=== PATIENT | male | born 1945 | race Caucasian/White ===

== ENCOUNTER → 2018-11-14 | Outpatient (CLI) | payer OTHER ==
[~2018-11-14] MED LIST: ATOR20TA58 PO; CANA300T PO; DULA0.75 SQ; FLUC100T4 PO; LISI10TA2 PO; METF500T9 PO
--- NOTE | 2018-11-14 10:28 | KCIC ---
MRI of the brain without contrast 11/14/2018 Clinical History: Dementia, memory loss and unsteady gait. . Technique: Unenhanced T1-weighted sagittal and axial, T2-weighted axial and coronal and FLAIR, gradient echo and diffusion-weighted axial images of the brain were obtained. Findings: No previous imaging studies are available for comparison. Images from the study are degraded by patient motion. There is generalized parenchymal atrophy. Patchy and several small focal areas of increased signal intensity are seen within the periventricular and subcortical white matter of both cerebral hemispheres along with the anthony on the FLAIR and T2-weighted images consistent with areas of small vessel ischemic disease. No acute parenchymal abnormality is seen. No extra-axial fluid collection is seen. There is no MRI evidence of acute ischemia/infarction. The paranasal sinuses are essentially clear. The distal right internal carotid artery is noted to be occluded. Impression: No acute parenchymal abnormality is seen. Electronically signed by: Carlos Kendall MD (11/14/2018 10:23 AM) [facility]
== END | disposition home or self-care (01) ==
LOC: KCIC MRI 08:05
PROVIDERS: ATTEND Nurse Practitioner Family
DX: F03.90 Unspecified dementia, unspecified severity, without behavioral disturbance, psychotic disturbance, mood disturbance, and anxiety (principal); G31.89 Other specified degenerative diseases of nervous system
CPT/HCPCS: 70551

== ENCOUNTER 2019-04-02 16:21 | Inpatient (IN) | payer OTHER, MEDICARE ==
[~2019-04-02] VITALS: Ht 182.9 cm; Wt 104.4 kg
[2019-04-02 17:00] LABS: BASO # 0.1 x10^3/uL (0.0-0.2); BASO % 1 % (0-3); EOS # 0.1 x10^3/uL (0.0-0.7); EOS % 1 % (0-3); HEMOGLOBIN 16.8 g/dL (13.0-17.5); LYMPH # 1.8 x10^3/uL (1.0-4.8); LYMPH % 12 % (24-48); MEAN CORPUSCULAR HEMOGLOBIN 32 pg (25-35); MEAN CORPUSCULAR HGB CONC 34 g/dL (31-37); MEAN CORPUSCULAR VOLUME 94 fL (79-100); MONO # 1.1 x10^3/uL (0.0-1.1); MONO % 7 % (0-9); NEUT # 12.2 x10^3uL (1.8-7.7); NEUT % 80 % (31-73); PLATELET COUNT 180 x10^3/uL (140-400); RED BLOOD COUNT 5.34 x10^6/uL (4.30-5.70); RED CELL DISTRIBUTION WIDTH 12.8 % (11.5-14.5); WHITE BLOOD COUNT 15.3 x10^3/uL (4.0-11.0)
[2019-04-02 17:12] LABS: PROTHROMBIN TIME PATIENT 11.9 SEC (11.7-14.0)
--- NOTE | 2019-04-02 17:22 | RAD ---
EXAM: Head CT without contrast. HISTORY: Confusion. TECHNIQUE: Computed tomographic images of the head were obtained without contrast. *One or more of the following individualized dose reduction techniques were utilized for this examination: 1. Automated exposure control. 2. Adjustment of the mA and/or kV according to patient size. 3. Use of iterative reconstruction technique. COMPARISON: MRI dated 11/14/2018. FINDINGS: There is no acute or subacute extra-axial or intraparenchymal hemorrhage. There is no mass effect or midline shift. There is no hydrocephalus. There are areas of decreased attenuation within the cerebral white matter, nonspecific and likely related to chronic small vessel disease. There is cerebral volume loss. The visualized portions of the orbits, paranasal sinuses and mastoid air cells are unremarkable. No suspicious calvarial lesion is seen. There are few tiny incidental lipomas along the falx. IMPRESSION: 1. No acute intracranial finding. Note is made that MRI is more sensitive for acute infarction. 2. Decreased attenuation within the cerebral white matter, likely due to chronic small vessel disease. Electronically signed by: Shirley Pierson MD (04/02/2019 5:19 PM) [facility]
--- NOTE | 2019-04-02 17:42 | RAD ---
EXAM: Abdomen acute complete HISTORY: Confusion. COMPARISON: None. FINDINGS: A frontal view of the chest and frontal upright and supine views of the abdomen are obtained. There is no infiltrate, pleural effusion or pneumothorax. There are suspected bilateral lower lobe atelectasis. There is a prominent cardiac silhouette. There are healed rib fractures. There is gas and stool within the colon. No abnormally dilated loop of bowel seen. There is no free air. IMPRESSION: 1. No acute pulmonary finding. 2. Nonobstructive bowel gas pattern. Electronically signed by: Shirley Pierson MD (04/02/2019 5:40 PM) [facility]
[2019-04-02 17:43] LABS: CALCIUM 9.4 mg/dL (8.5-10.1); CREATININE 1.6 mg/dL (0.7-1.3); GFR 42.2; POTASSIUM 5.4 mmol/L (3.5-5.1)
[2019-04-02 17:50] LABS: ALBUMIN 4.2 g/dL (3.4-5.0); ALBUMIN/GLOBULIN RATIO 1.1 (1.0-1.7); MAGNESIUM 1.9 mg/dL (1.8-2.4); TOTAL BILIRUBIN 0.3 mg/dL (0.2-1.0); TOTAL PROTEIN 8.1 g/dL (6.4-8.2)
[2019-04-02] MEDS: IV NORMAL SALINE 1000ML BAG 1,000 ML IV SCH (18:18)
--- NOTE | 2019-04-02 18:18 | PHYS DOC ---
Past Medical History Past Medical History: Dementia, Diabetes-Type II Additional Past Surgical Histo: Right Shoulder. Additional Information: Quit 10-15 years ago 3 ppd hx. Alcohol Use: None Drug Use: None Adult General Chief Complaint Chief Complaint: CONSTIPATION [facility] HPI Patient is a 74 year old male who brought in by EMS because of constipation. Patient states he had a bowel movement yesterday but didn't have any bowel movement today and tried to reach his couldn't find her at work and decided to call 911. Patient denies nausea and vomiting, urinary symptoms, fever and chills abdominal pain. 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 Review of Systems Review of Systems Constitutional: Denies fever or chills [] Eyes: Denies change in visual acuity, redness, or eye pain [] HENT: Denies nasal congestion or sore throat [] Respiratory: Denies cough or shortness of breath [] Cardiovascular: No additional information not addressed in HPI [] GI: Denies abdominal pain, nausea, vomiting, bloody stools or diarrhea, reports constipation [] : Denies dysuria or hematuria [] Musculoskeletal: Denies back pain or joint pain [] Integument: Denies rash or skin lesions [] Neurologic: Denies headache, focal weakness or sensory changes [] Endocrine: Denies polyuria or polydipsia [] All other systems were reviewed and found to be within normal limits, except as documented in this note. Allergies Allergies Allergies Coded Allergies Type Severity Reaction Last Updated Verified No Known Drug Allergies 04/02/19 No Physical Exam Physical Exam Constitutional: Well nourished, mild distress, non-toxic appearance. [] HENT: Normocephalic, atraumatic, bilateral external ears normal, oropharynx moist, no oral exudates, nose normal. [] Eyes: PERRLA, EOMI, conjunctiva normal, no discharge. [] Neck: Normal range of motion, no tenderness, supple, no stridor. [] Cardiovascular: Tachycardia, no murmur [] Lungs & Thorax: Bilateral breath sounds clear to auscultation [] Abdomen: Bowel sounds normal, soft, no tenderness, no masses, no pulsatile masses. [] Skin: Warm, dry, no erythema, no rash. [] Back: No tenderness, no CVA tenderness. [] Extremities: No tenderness, no cyanosis, no clubbing, ROM intact, no edema. [] Neurologic: Alert and oriented X2, normal motor function, normal sensory function, no focal deficits noted. [] Psychologic: Affect anxious Current Patient Data Vital Signs Vital Signs Date Time Temp Pulse Resp B/P (MAP) Pulse Ox O2 Delivery O2 Flow Rate FiO2 04/02/19 16:22 98.1 111 24 187/98 (127) 96 Room Air 98.1 Lab Values Laboratory Tests Test 04/02/19 16:48 White Blood Count 15.3 x10^3/uL (4.0-11.0) H Red Blood Count 5.34 x10^6/uL (4.30-5.70) Hemoglobin 16.8 g/dL (13.0-17.5) Hematocrit 50.0 % (39.0-53.0) Mean Corpuscular Volume 94 fL (79-100) Mean Corpuscular Hemoglobin 32 pg (25-35) Mean Corpuscular Hemoglobin Concent 34 g/dL (31-37) Red Cell Distribution Width 12.8 % (11.5-14.5) Platelet Count 180 x10^3/uL (140-400) Neutrophils (%) (Auto) 80 % (31-73) H Lymphocytes (%) (Auto) 12 % (24-48) L Monocytes (%) (Auto) 7 % (0-9) Eosinophils (%) (Auto) 1 % (0-3) Basophils (%) (Auto) 1 % (0-3) Neutrophils # (Auto) 12.2 x10^3uL (1.8-7.7) H Lymphocytes # (Auto) 1.8 x10^3/uL (1.0-4.8) Monocytes # (Auto) 1.1 x10^3/uL (0.0-1.1) Eosinophils # (Auto) 0.1 x10^3/uL (0.0-0.7) Basophils # (Auto) 0.1 x10^3/uL (0.0-0.2) Prothrombin Time 11.9 SEC (11.7-14.0) Prothrombin Time INR 0.9 (0.8-1.1) PTT 28 SEC (24-38) Sodium Level 140 mmol/L (136-145) Potassium Level 5.4 mmol/L (3.5-5.1) H Chloride Level 103 mmol/L (98-107) Carbon Dioxide Level 24 mmol/L (21-32) Anion Gap 13 (6-14) Blood Urea Nitrogen 27 mg/dL (8-26) H Creatinine 1.6 mg/dL (0.7-1.3) H Estimated GFR (Cockcroft-Gault) 42.2 BUN/Creatinine Ratio 17 (6-20) Glucose Level 131 mg/dL (70-99) H Lactic Acid Level 2.0 mmol/L (0.4-2.0) Calcium Level 9.4 mg/dL (8.5-10.1) Magnesium Level 1.9 mg/dL (1.8-2.4) Total Bilirubin 0.3 mg/dL (0.2-1.0) Aspartate Amino Transferase (AST) 24 U/L (15-37) Alanine Aminotransferase (ALT) 30 U/L (16-63) Alkaline Phosphatase 104 U/L (46-116) Ammonia < 10 mcmol/L (11-34) L Creatine Kinase 98 U/L (39-308) Troponin I Quantitative < 0.017 ng/mL (0.000-0.055) CF-Cmb-L-Type Natriuretic Peptide 146 pg/mL (0-449) Total Protein 8.1 g/dL (6.4-8.2) Albumin 4.2 g/dL (3.4-5.0) Albumin/Globulin Ratio 1.1 (1.0-1.7) Lipase 993 U/L (73-393) H Laboratory Tests 04/02/19 16:48 Laboratory Tests 04/02/19 16:48 EKG EKG EKG interpreted by me. EKG at 1633 showed sinus tachycardia at rate of 110, left fourth axis, poor R-wave progress in anteroseptal leads, no acute ST and T-wave abnormalities. Radiology/Procedures Radiology/Procedures [][facility] [address] [place] [address] IMAGING REPORT Signed PATIENT: BURAK GÓMEZ ACCOUNT: [id number] : 1945 LOCATION: ER AGE: 74 SEX: M EXAM STATUS: REG ER ORD. PHYSICIAN: EDGAR LOPES MD REASON: confusion PROCEDURE: ACUTE ABDOMEN SERIES EXAM: Abdomen acute complete HISTORY: Confusion. COMPARISON: None. FINDINGS: A frontal view of the chest and frontal upright and supine views of the abdomen are obtained. There is no infiltrate, pleural effusion or pneumothorax. There are suspected bilateral lower lobe atelectasis. There is a prominent cardiac silhouette. There are healed rib fractures. There is gas and stool within the colon. No abnormally dilated loop of bowel seen. There is no free air. IMPRESSION: 1. No acute pulmonary finding. 2. Nonobstructive bowel gas pattern. Electronically signed by: Shirley Abraham MD (04/02/2019 5:40 PM) [facility] DICTATED and SIGNED BY: SHIRLEY ABRAHAM MD DATE: 04/02/19 1740 [facility] [address] [place], [place] [id number] IMAGING REPORT Signed PATIENT: BURAK GÓMEZ ACCOUNT: [id number] : 1945 LOCATION: ER AGE: 74 SEX: M EXAM STATUS: REG ER ORD. PHYSICIAN: EDGAR LOPES MD REASON: confusion PROCEDURE: CT HEAD WO CONTRAST EXAM: Head CT without contrast. HISTORY: Confusion. TECHNIQUE: Computed tomographic images of the head were obtained without contrast. *One or more of the following individualized dose reduction techniques were utilized for this examination: 1. Automated exposure control. 2. Adjustment of the mA and/or kV according to patient size. 3. Use of iterative reconstruction technique. COMPARISON: MRI dated 11/14/2018. FINDINGS: There is no acute or subacute extra-axial or intraparenchymal hemorrhage. There is no mass effect or midline shift. There is no hydrocephalus. There are areas of decreased attenuation within the cerebral white matter, nonspecific and likely related to chronic small vessel disease. There is cerebral volume loss. The visualized portions of the orbits, paranasal sinuses and mastoid air cells are unremarkable. No suspicious calvarial lesion is seen. There are few tiny incidental lipomas along the falx. IMPRESSION: 1. No acute intracranial finding. Note is made that MRI is more sensitive for acute infarction. 2. Decreased attenuation within the cerebral white matter, likely due to chronic small vessel disease. Electronically signed by: Shirley Abraham MD (04/02/2019 5:19 PM) [facility] DICTATED and SIGNED BY: SHIRLEY ABRAHAM MD DATE: 04/02/19 2110 Course & Med Decision Making Course & Med Decision Making Pertinent Labs and Imaging studies reviewed. (See chart for details) Evaluation of patient in ER showed 74-year-old male patient brought in by EMS because of constipation. Patient had dementia and had complete evaluation with elevation of lipase and urine creatinine and tachycardia and leukocytosis. Plan to admit patient with diagnose of pancreatitis. CT abdomen and pelvis is pending. Patient requiring admission for further evaluation and treatment. Discussed with Dr. Engel who is in agreement with admission. Discussed findings and plan with patient and family, who acknowledge understanding and agreement. Dragon Disclaimer Dragon Disclaimer This electronic medical record was generated, in whole or in part, using a voice recognition dictation system. Departure Departure Impression: Primary Impression: Acute pancreatitis Additional Impressions: SIRS (systemic inflammatory response syndrome) Renal insufficiency Hyperkalemia Disposition: ADMITTED INPATIENT (At 1810) Admitting Physician: BALJITS (Dr. Engel accepted admission at 1810) Condition: IMPROVED Referrals: JAYLEN GIANG MD (PCP) Problem Qualifiers Primary Impression: Acute pancreatitis Pancreatitis type: unspecified pancreatitis type Acute pancreatitis complication: unspecified Qualified Codes: K85.90 - Acute pancreatitis without necrosis or infection, unspecified EDGAR LOPES MD Apr 02, 2019 18:18
[2019-04-02] MEDS ORDERED: ALBUTEROL SULFATE 2.5 MG/3 ML NEBU. CONT NEB ONE (18:30)
--- NOTE | 2019-04-02 18:44 | RAD ---
EXAM: Abdomen and pelvis CT without intravenous contrast. HISTORY: Pain. TECHNIQUE: Computed tomographic images of the abdomen and pelvis were obtained without contrast. Multiplanar reformatting was performed. *One or more of the following individualized dose reduction techniques were utilized for this examination: 1. Automated exposure control. 2. Adjustment of the mA and/or kV according to patient size. 3. Use of iterative reconstruction technique. COMPARISON: None. FINDINGS: Evaluation of the lower thorax demonstrates posterior dependent and basilar atelectasis. There is no infiltrate or pleural effusion. There is lipomatous hypertrophy of the interatrial septum. There is ossification of the aortic valve and coronary arteries. There is a tiny hiatal hernia. There are healed rib fractures. There are extensive granulomas within the spleen and liver. No suspicious hepatic lesion is seen. The gallbladder, pancreas and adrenal glands are unremarkable. There is right renal atrophy. There is a 1.7 cm exophytic lesion along the anterior mid zone of the left kidney, likely a cyst. There is no obstructive uropathy. There is no appendicitis. There is colonic diverticulosis without convincing diverticulitis. The bladder is distended. There is no lymphadenopathy. There is abdominal aortic and aortic branch vessel atherosclerotic plaque. There is a small fat-containing right inguinal hernia. There are degenerative changes throughout the spine. There is bone demineralization. There are bridging anterior osteophytes at the thoracic levels and there is a mild chronic wedge compression deformity of T12. IMPRESSION: 1. Extensive colonic diverticulosis without convincing diverticulitis. 2. Right renal atrophy and hypodense lesion within the anterior mid zone of the left kidney, likely a cyst. Renal sonography can be performed to confirm benignity. 3. Small fat-containing left inguinal hernia. 4. Tiny hiatal hernia. Electronically signed by: Shirley Pierson MD (04/02/2019 6:41 PM) [facility]
[2019-04-02 19:39] LABS: BILIRUBIN,URINE NEGATIVE (NEG); CLARITY,URINE CLEAR; COLOR,URINE YELLOW; NITRITE,URINE NEGATIVE (NEG); PROTEIN,URINE NEGATIVE (NEG-TRACE); UROBILINOGEN,URINE 0.2 mg/dL (0.2 mg/dL)
[2019-04-02 19:45] LABS: BARBITURATES NEG (NEG); BENZODIAZEPINES NEG (NEG); CANNABINOIDS NEG (NEG); COCAINE NEG (NEG); METHADONE NEG (NEG); OPIATES NEG (NEG); PHENCYCLIDINE NEG (NEG)
[2019-04-02 19:46] LABS: AMPHETAMINE/METHAMPHETAMINE NEG (NEG)
[2019-04-02 19:56] LABS: BACTERIA,URINE 0 /HPF (0-FEW); SQUAMOUS EPITHELIAL CELL,UR OCC /LPF
[2019-04-02] MEDS ORDERED: CANA300T PO (20:31)
[2019-04-02] MEDS ORDERED: ATOR20TA58 PO (20:31)
[2019-04-02] MEDS ORDERED: METF500T9 PO (20:31)
[2019-04-02] MEDS ORDERED: FLUC100T4 PO (20:31)
[2019-04-02 21:32] VITALS: BP 176/74
[2019-04-02 22:52] VITALS: BP 94/68
--- NOTE | 2019-04-02 23:07 | PDOC1 ---
History and Physical Date of Admission Date of Admission DATE: 04/02/19 TIME: 23:07 History of Present Illness History of Present Illness candace Tijerina a 74 year old male who brought in by EMS because of constipation. Patient states he had a bowel movement yesterday but didn't have any bowel movement today and tried to reach his couldn't find her at work and decided to call 911. Patient denies nausea and vomiting, urinary symptoms, fever and chills abdominal pain. 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 Past Medical History Cardiovascular: HTN CENTRAL NERVOUS SYSTEM: Dementia ENT: No pertinent hx Family History Family History: Family History Unknown Social History Smoke: No ALCOHOL: none Current Problem List Problem List Problems Medical Problems: (1) Acute pancreatitis Status: Acute (2) Hyperkalemia Status: Acute (3) Renal insufficiency Status: Acute (4) SIRS (systemic inflammatory response syndrome) Status: Acute Current Medications Current Medications Current Medications Albuterol Sulfate (Ventolin Neb Soln) 10 mg 1X ONCE CONT NEB Last administered on 04/02/19at 18:39; Start 04/02/19 at 18:30; Stop 04/02/19 at 18:31; Status DC Sodium Chloride 1,000 ml @ 150 mls/hr Q6H40M IV Last administered on 04/02/19at 18:18; Start 04/02/19 at 18:18; Stop 04/03/19 at 18:17 Active Scripts Active Reported Fluconazole 100 Mg Tablet 100 Mg PO DAILY Metformin Hcl Er (Metformin Hcl) 500 Mg Tab.er.24h 500 Mg PO DAILY Invokana (Canagliflozin) 300 Mg Tablet 300 Mg PO DAILY Atorvastatin Calcium 20 Mg Tablet 20 Mg PO DAILY Allergies Allergies: Coded Allergies: No Known Drug Allergies (Unverified , 04/02/19) ROS Review of System dementia really limits this General: No: Chills, Night Sweats, Fatigue, Malaise, Appetite, Other PSYCHOLOGICAL ROS: YES: Irritablity, Sleep disturbances; No: Anxiety, Behavioral Disorder, Concentration difficultie, Decreased libido, Depression, Disorientation, Memory difficulties, Mood Swings, Obsessive thoughts, Sexual abuse, Suicidal ideation, Other Eyes: Yes Uses contacts; No Blurry vision, No Decreased vision, No Double vision, No Dry eyes, No Excessive tearing, No Eye Pain, No Itchy Eyes, No Loss of vision, No Photophobia, No Other HEENT: YES: Other; No: Heacaches, Visual Changes, Hearing change, Nasal congestion, Nasal discharge Gastrointestinal: No Nausea, No Vomiting, No Abdominal Pain, No Diarrhea, No Constipation, No Melena, No Hematochezia, No Other Genitourinary: No Dysuria, No Frequency, No Incontinence, No Hematuria, No Retention, No Discharge, No Urgency, No Pain, No Flank Pain, No Other, No , No , No , No , No , No , No Musculoskeletal: No Gait Disturbance, No Joint Pain, No Joint Stiffness, No Joint Swelling, No Muscle Pain, No Muscular Weakness, No Pain In:, No Swelling In:, No Other Neurological: No Behavorial Changes, No Bowel/Bladder ControlChng, No Confusion, No Dizziness, No Gait Disturbance, No Headaches, No Impaired Coord/balance, No Memory Loss, No Numbness/Tingling, No Seizures, No Speech Problems, No Tremors, No Visual Changes, No Weakness, No Other Skin: No Dry Skin, No Eczema, No Hair Changes, No Lumps, No Mole Changes, No Mottling, No Nail Changes, No Pruritus, No Rash, No Skin Lesion Changes, No Other, No Acne Physical Exam General: Alert, Cooperative, Other (not oriented 1/4, talkative) HEENT: Atraumatic, PERRLA, EOMI Lungs: Clear to auscultation, Normal air movement Heart: no gallops, no murmurs Abdomen: Normal bowel sounds, Soft Extremities: No clubbing, No edema, Normal pulses Skin: No rashes Neuro: Normal speech, Strength at 5/5 X4 ext, Normal tone Psych/Mental Status: Mood NL Vitals Vitals Vital Signs Date Time Temp Pulse Resp B/P (MAP) Pulse Ox O2 Delivery O2 Flow Rate FiO2 04/02/19 22:52 98.0 104 20 94/68 (77) 92 Room Air 98.0 Labs Labs Laboratory Tests Test 04/02/19 16:48 04/02/19 19:30 04/02/19 20:20 White Blood Count 15.3 x10^3/uL (4.0-11.0) Red Blood Count 5.34 x10^6/uL (4.30-5.70) Hemoglobin 16.8 g/dL (13.0-17.5) Hematocrit 50.0 % (39.0-53.0) Mean Corpuscular Volume 94 fL (79-100) Mean Corpuscular Hemoglobin 32 pg (25-35) Mean Corpuscular Hemoglobin Concent 34 g/dL (31-37) Red Cell Distribution Width 12.8 % (11.5-14.5) Platelet Count 180 x10^3/uL (140-400) Neutrophils (%) (Auto) 80 % (31-73) Lymphocytes (%) (Auto) 12 % (24-48) Monocytes (%) (Auto) 7 % (0-9) Eosinophils (%) (Auto) 1 % (0-3) Basophils (%) (Auto) 1 % (0-3) Neutrophils # (Auto) 12.2 x10^3uL (1.8-7.7) Lymphocytes # (Auto) 1.8 x10^3/uL (1.0-4.8) Monocytes # (Auto) 1.1 x10^3/uL (0.0-1.1) Eosinophils # (Auto) 0.1 x10^3/uL (0.0-0.7) Basophils # (Auto) 0.1 x10^3/uL (0.0-0.2) Prothrombin Time 11.9 SEC (11.7-14.0) Prothromb Time International Ratio 0.9 (0.8-1.1) Activated Partial Thromboplast Time 28 SEC (24-38) Sodium Level 140 mmol/L (136-145) Potassium Level 5.4 mmol/L (3.5-5.1) Chloride Level 103 mmol/L (98-107) Carbon Dioxide Level 24 mmol/L (21-32) Anion Gap 13 (6-14) Blood Urea Nitrogen 27 mg/dL (8-26) Creatinine 1.6 mg/dL (0.7-1.3) Estimated GFR (Cockcroft-Gault) 42.2 BUN/Creatinine Ratio 17 (6-20) Glucose Level 131 mg/dL (70-99) Lactic Acid Level 2.0 mmol/L (0.4-2.0) Calcium Level 9.4 mg/dL (8.5-10.1) Magnesium Level 1.9 mg/dL (1.8-2.4) Total Bilirubin 0.3 mg/dL (0.2-1.0) Aspartate Amino Transf (AST/SGOT) 24 U/L (15-37) Alanine Aminotransferase (ALT/SGPT) 30 U/L (16-63) Alkaline Phosphatase 104 U/L (46-116) Ammonia < 10 mcmol/L (11-34) Creatine Kinase 98 U/L (39-308) Troponin I Quantitative < 0.017 ng/mL (0.000-0.055) DR-Tna-X-Type Natriuretic Peptide 146 pg/mL (0-449) Total Protein 8.1 g/dL (6.4-8.2) Albumin 4.2 g/dL (3.4-5.0) Albumin/Globulin Ratio 1.1 (1.0-1.7) Lipase 993 U/L (73-393) Urine Color Yellow Urine Clarity Clear Urine pH 6.0 Urine Specific [place] 1.025 Urine Protein Negative mg/dL (NEG-TRACE) Urine Glucose (UA) >=1000 mg/dL (NEG) Urine Ketones (Stick) Negative mg/dL (NEG) Urine Blood Moderate (NEG) Urine Nitrite Negative (NEG) Urine Bilirubin Negative (NEG) Urine Urobilinogen Dipstick 0.2 mg/dL (0.2 mg/dL) Urine Leukocyte Esterase Negative (NEG) Urine RBC 6-10 /HPF (0-2) Urine WBC 1-4 /HPF (0-4) Urine Squamous Epithelial Cells Occ /LPF Urine Bacteria 0 /HPF (0-FEW) Urine Opiates Screen Neg (NEG) Urine Methadone Screen Neg (NEG) Urine Barbiturates Neg (NEG) Urine Phencyclidine Screen Neg (NEG) Urine Amphetamine/Methamphetamine Neg (NEG) Urine Benzodiazepines Screen Neg (NEG) Urine Cocaine Screen Neg (NEG) Urine Cannabinoids Screen Neg (NEG) Urine Ethyl Alcohol Neg (NEG) Glucose (Fingerstick) 139 mg/dL (70-99) Laboratory Tests Test 04/02/19 16:48 04/02/19 19:30 04/02/19 20:20 White Blood Count 15.3 x10^3/uL (4.0-11.0) Red Blood Count 5.34 x10^6/uL (4.30-5.70) Hemoglobin 16.8 g/dL (13.0-17.5) Hematocrit 50.0 % (39.0-53.0) Mean Corpuscular Volume 94 fL (79-100) Mean Corpuscular Hemoglobin 32 pg (25-35) Mean Corpuscular Hemoglobin Concent 34 g/dL (31-37) Red Cell Distribution Width 12.8 % (11.5-14.5) Platelet Count 180 x10^3/uL (140-400) Neutrophils (%) (Auto) 80 % (31-73) Lymphocytes (%) (Auto) 12 % (24-48) Monocytes (%) (Auto) 7 % (0-9) Eosinophils (%) (Auto) 1 % (0-3) Basophils (%) (Auto) 1 % (0-3) Neutrophils # (Auto) 12.2 x10^3uL (1.8-7.7) Lymphocytes # (Auto) 1.8 x10^3/uL (1.0-4.8) Monocytes # (Auto) 1.1 x10^3/uL (0.0-1.1) Eosinophils # (Auto) 0.1 x10^3/uL (0.0-0.7) Basophils # (Auto) 0.1 x10^3/uL (0.0-0.2) Prothrombin Time 11.9 SEC (11.7-14.0) Prothromb Time International Ratio 0.9 (0.8-1.1) Activated Partial Thromboplast Time 28 SEC (24-38) Sodium Level 140 mmol/L (136-145) Potassium Level 5.4 mmol/L (3.5-5.1) Chloride Level 103 mmol/L (98-107) Carbon Dioxide Level 24 mmol/L (21-32) Anion Gap 13 (6-14) Blood Urea Nitrogen 27 mg/dL (8-26) Creatinine 1.6 mg/dL (0.7-1.3) Estimated GFR (Cockcroft-Gault) 42.2 BUN/Creatinine Ratio 17 (6-20) Glucose Level 131 mg/dL (70-99) Lactic Acid Level 2.0 mmol/L (0.4-2.0) Calcium Level 9.4 mg/dL (8.5-10.1) Magnesium Level 1.9 mg/dL (1.8-2.4) Total Bilirubin 0.3 mg/dL (0.2-1.0) Aspartate Amino Transf (AST/SGOT) 24 U/L (15-37) Alanine Aminotransferase (ALT/SGPT) 30 U/L (16-63) Alkaline Phosphatase 104 U/L (46-116) Ammonia < 10 mcmol/L (11-34) Creatine Kinase 98 U/L (39-308) Troponin I Quantitative < 0.017 ng/mL (0.000-0.055) ZC-Tky-D-Type Natriuretic Peptide 146 pg/mL (0-449) Total Protein 8.1 g/dL (6.4-8.2) Albumin 4.2 g/dL (3.4-5.0) Albumin/Globulin Ratio 1.1 (1.0-1.7) Lipase 993 U/L (73-393) Urine Color Yellow Urine Clarity Clear Urine pH 6.0 Urine Specific [place] 1.025 Urine Protein Negative mg/dL (NEG-TRACE) Urine Glucose (UA) >=1000 mg/dL (NEG) Urine Ketones (Stick) Negative mg/dL (NEG) Urine Blood Moderate (NEG) Urine Nitrite Negative (NEG) Urine Bilirubin Negative (NEG) Urine Urobilinogen Dipstick 0.2 mg/dL (0.2 mg/dL) Urine Leukocyte Esterase Negative (NEG) Urine RBC 6-10 /HPF (0-2) Urine WBC 1-4 /HPF (0-4) Urine Squamous Epithelial Cells Occ /LPF Urine Bacteria 0 /HPF (0-FEW) Urine Opiates Screen Neg (NEG) Urine Methadone Screen Neg (NEG) Urine Barbiturates Neg (NEG) Urine Phencyclidine Screen Neg (NEG) Urine Amphetamine/Methamphetamine Neg (NEG) Urine Benzodiazepines Screen Neg (NEG) Urine Cocaine Screen Neg (NEG) Urine Cannabinoids Screen Neg (NEG) Urine Ethyl Alcohol Neg (NEG) Glucose (Fingerstick) 139 mg/dL (70-99) VTE Prophylaxis Ordered VTE Prophylaxis Devices: No VTE Pharmacological Prophylaxi: Yes Assessment/Plan Assessment/Plan abdominal pain acute pancreatitis, NPO, clear fluids SIRS, start zosyn, dementia constipation hyperkalemia, CKD 3, IV fluid JOSE PRIETO MD Apr 02, 2019 23:07
[2019-04-03 02:58] VITALS: BP 95/51
[2019-04-03] MEDS: IV NORMAL SALINE 1000ML BAG 1,000 ML IV SCH ×3 (02:58→15:30)
--- NOTE | 2019-04-03 05:59 | EKG ---
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
[2019-04-03 07:00] VITALS: BP 125/78
--- NOTE | 2019-04-03 09:04 | PDOC2 ---
GI CONSULT Reason For Consult: Pancreatitis HPI: HPI: 74 y/o man w/ dementia admitted through ER. Alone in room this morning, questionable historian. He knows he's at [facility] and can tell me his birthday but says "no idea" when asked the year. Notes indicate he called 911 on Tuesday because he felt constipated and also indicate he had a stool on Tuesday. He currently denies constipation and thinks he had a stool yesterday. He's also feeling hungry. Labs notable for WBC 15.3, Cr 1.6, and lipase 993. We were asked to see for pancreatitis. Unremarkable pancreas on CT w/o contrast. He denies reflux, dysphagia, n/v, abd pain, diarrhea, and bleeding. Unclear re: previous 'scopes. Denies abdominal surgeries and h/o pancreatitis. PMH: PMH: per chart - dementia, DM, HLD, diverticulosis, hiatal hernia right shoulder surgery, right eye surgery FH: Family History: No pertinent hx Social History: Smoke: Quit ALCOHOL: none ROS: Per HPI. Vitals: Vitals: Vital Signs Date Time Temp Pulse Resp B/P (MAP) Pulse Ox O2 Delivery O2 Flow Rate FiO2 04/03/19 07:00 98.7 75 18 125/78 (94) 95 Room Air 98.7 Labs: Labs: Laboratory Tests Test 04/02/19 16:48 04/02/19 19:30 04/02/19 20:20 White Blood Count 15.3 x10^3/uL (4.0-11.0) Red Blood Count 5.34 x10^6/uL (4.30-5.70) Hemoglobin 16.8 g/dL (13.0-17.5) Hematocrit 50.0 % (39.0-53.0) Mean Corpuscular Volume 94 fL (79-100) Mean Corpuscular Hemoglobin 32 pg (25-35) Mean Corpuscular Hemoglobin Concent 34 g/dL (31-37) Red Cell Distribution Width 12.8 % (11.5-14.5) Platelet Count 180 x10^3/uL (140-400) Neutrophils (%) (Auto) 80 % (31-73) Lymphocytes (%) (Auto) 12 % (24-48) Monocytes (%) (Auto) 7 % (0-9) Eosinophils (%) (Auto) 1 % (0-3) Basophils (%) (Auto) 1 % (0-3) Neutrophils # (Auto) 12.2 x10^3uL (1.8-7.7) Lymphocytes # (Auto) 1.8 x10^3/uL (1.0-4.8) Monocytes # (Auto) 1.1 x10^3/uL (0.0-1.1) Eosinophils # (Auto) 0.1 x10^3/uL (0.0-0.7) Basophils # (Auto) 0.1 x10^3/uL (0.0-0.2) Prothrombin Time 11.9 SEC (11.7-14.0) Prothromb Time International Ratio 0.9 (0.8-1.1) Activated Partial Thromboplast Time 28 SEC (24-38) Sodium Level 140 mmol/L (136-145) Potassium Level 5.4 mmol/L (3.5-5.1) Chloride Level 103 mmol/L (98-107) Carbon Dioxide Level 24 mmol/L (21-32) Anion Gap 13 (6-14) Blood Urea Nitrogen 27 mg/dL (8-26) Creatinine 1.6 mg/dL (0.7-1.3) Estimated GFR (Cockcroft-Gault) 42.2 BUN/Creatinine Ratio 17 (6-20) Glucose Level 131 mg/dL (70-99) Lactic Acid Level 2.0 mmol/L (0.4-2.0) Calcium Level 9.4 mg/dL (8.5-10.1) Magnesium Level 1.9 mg/dL (1.8-2.4) Total Bilirubin 0.3 mg/dL (0.2-1.0) Aspartate Amino Transf (AST/SGOT) 24 U/L (15-37) Alanine Aminotransferase (ALT/SGPT) 30 U/L (16-63) Alkaline Phosphatase 104 U/L (46-116) Ammonia < 10 mcmol/L (11-34) Creatine Kinase 98 U/L (39-308) Troponin I Quantitative < 0.017 ng/mL (0.000-0.055) GC-Mbh-P-Type Natriuretic Peptide 146 pg/mL (0-449) Total Protein 8.1 g/dL (6.4-8.2) Albumin 4.2 g/dL (3.4-5.0) Albumin/Globulin Ratio 1.1 (1.0-1.7) Lipase 993 U/L (73-393) Urine Color Yellow Urine Clarity Clear Urine pH 6.0 Urine Specific [place] 1.025 Urine Protein Negative mg/dL (NEG-TRACE) Urine Glucose (UA) >=1000 mg/dL (NEG) Urine Ketones (Stick) Negative mg/dL (NEG) Urine Blood Moderate (NEG) Urine Nitrite Negative (NEG) Urine Bilirubin Negative (NEG) Urine Urobilinogen Dipstick 0.2 mg/dL (0.2 mg/dL) Urine Leukocyte Esterase Negative (NEG) Urine RBC 6-10 /HPF (0-2) Urine WBC 1-4 /HPF (0-4) Urine Squamous Epithelial Cells Occ /LPF Urine Bacteria 0 /HPF (0-FEW) Urine Opiates Screen Neg (NEG) Urine Methadone Screen Neg (NEG) Urine Barbiturates Neg (NEG) Urine Phencyclidine Screen Neg (NEG) Urine Amphetamine/Methamphetamine Neg (NEG) Urine Benzodiazepines Screen Neg (NEG) Urine Cocaine Screen Neg (NEG) Urine Cannabinoids Screen Neg (NEG) Urine Ethyl Alcohol Neg (NEG) Glucose (Fingerstick) 139 mg/dL (70-99) Allergies: Coded Allergies: No Known Drug Allergies (Unverified , 04/02/19) Medications: Current Medications Medications (Trade) Dose Ordered Sig/Stephanie Route PRN Reason Start Time Stop Time Status Last Admin Dose Admin Albuterol Sulfate (Ventolin Neb Soln) 10 mg 1X ONCE CONT NEB 04/02/19 18:30 04/02/19 18:31 DC 04/02/19 18:39 Sodium Chloride 1,000 ml @ 150 mls/hr Q6H40M IV 04/02/19 18:18 04/03/19 18:17 04/03/19 08:54 Imaging: Imaging: Head CT IMPRESSION: 1. No acute intracranial finding. Note is made that MRI is more sensitive for acute infarction. 2. Decreased attenuation within the cerebral white matter, likely due to chronic small vessel disease. AAS IMPRESSION: 1. No acute pulmonary finding. 2. Nonobstructive bowel gas pattern. CT A/P w/o contrast FINDINGS: Evaluation of the lower thorax demonstrates posterior dependent and basilar atelectasis. There is no infiltrate or pleural effusion. There is lipomatous hypertrophy of the interatrial septum. There is ossification of the aortic valve and coronary arteries. There is a tiny hiatal hernia. There are healed rib fractures. There are extensive granulomas within the spleen and liver. No suspicious hepatic lesion is seen. The gallbladder, pancreas and adrenal glands are unremarkable. There is right renal atrophy. There is a 1.7 cm exophytic lesion along the anterior mid zone of the left kidney, likely a cyst. There is no obstructive uropathy. There is no appendicitis. There is colonic diverticulosis without convincing diverticulitis. The bladder is distended. There is no lymphadenopathy. There is abdominal aortic and aortic branch vessel atherosclerotic plaque. There is a small fat-containing right inguinal hernia. T here are degenerative changes throughout the spine. There is bonedemineralization. There are bridging anterior osteophytes at the thoracic levels and there is a mild chronic wedge compression deformity of T12. IMPRESSION: 1. Extensive colonic diverticulosis without convincing diverticulitis. 2. Right renal atrophy and hypodense lesion within the anterior mid zone of the left kidney, likely a cyst. Renal sonography can be performed to confirm benignity. 3. Small fat-containing left inguinal hernia. 4. Tiny hiatal hernia. PE: GEN: NAD HEENT: Atraumatic, PERRL LUNGS: clear anteriorly, room air HEART: RRR, - tachycardia noted overnight ABD: ?some distention, non-tender, BS+ EXTREMITY: No edema SKIN: No rashes, no jaundice NEURO/PSYCH: pleasantly confused A/P: A/P: Dementia ?constipation Leukocytosis, ?RACHEAL, elevated lipase CRC screen - unclear Diverticulosis and hiatal hernia noted on CT -- Alone in room, limited history with dementia. Does not seem to be in pain currently and imaging unrevealing. Can try clears and Miralax, ADAT. Recheck labs. BARBER SELLERS Apr 03, 2019 09:04
[2019-04-03] MEDS: POLYETHYLENE GLYCOL 3350 17 GM PACKET. PO SCH ×2 (10:17→20:09)
[2019-04-03] MEDS: DOCUSATE SODIUM 100 MG CAPSULE. PO SCH (10:17)
--- NOTE | 2019-04-03 10:49 | PDOC ---
[employer] PROGRESS NOTE Chief Complaint Chief Complaint abdominal pain acute pancreatitis, NPO, clear fluids SIRS, start zosyn, dementia?? 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 ) constipation hyperkalemia, CKD 3, IV fluid History of Present Illness History of Present Illness Patient is a pleasant elderly male who was admitted last night with pancreatitis of undetermined etiology I examined the patient with the nurse and his Clinically he is stable but still has abdominal pain I'm going to check an abdominal ultrasound to rule out gallstones Also a lipid panel Will consult GI as well Vitals Vitals Vital Signs Date Time Temp Pulse Resp B/P (MAP) Pulse Ox O2 Delivery O2 Flow Rate FiO2 04/03/19 07:00 98.7 75 18 125/78 (94) 95 Room Air 98.7 Physical Exam General: Cooperative, Other (having difficulty gathering his words) Abdomen: Normal bowel sounds, Soft Extremities: No clubbing, No edema, Normal pulses Skin: No rashes Labs Labs: Laboratory Tests Test 04/02/19 16:48 04/02/19 19:30 04/02/19 20:20 White Blood Count 15.3 x10^3/uL (4.0-11.0) Red Blood Count 5.34 x10^6/uL (4.30-5.70) Hemoglobin 16.8 g/dL (13.0-17.5) Hematocrit 50.0 % (39.0-53.0) Mean Corpuscular Volume 94 fL (79-100) Mean Corpuscular Hemoglobin 32 pg (25-35) Mean Corpuscular Hemoglobin Concent 34 g/dL (31-37) Red Cell Distribution Width 12.8 % (11.5-14.5) Platelet Count 180 x10^3/uL (140-400) Neutrophils (%) (Auto) 80 % (31-73) Lymphocytes (%) (Auto) 12 % (24-48) Monocytes (%) (Auto) 7 % (0-9) Eosinophils (%) (Auto) 1 % (0-3) Basophils (%) (Auto) 1 % (0-3) Neutrophils # (Auto) 12.2 x10^3uL (1.8-7.7) Lymphocytes # (Auto) 1.8 x10^3/uL (1.0-4.8) Monocytes # (Auto) 1.1 x10^3/uL (0.0-1.1) Eosinophils # (Auto) 0.1 x10^3/uL (0.0-0.7) Basophils # (Auto) 0.1 x10^3/uL (0.0-0.2) Prothrombin Time 11.9 SEC (11.7-14.0) Prothromb Time International Ratio 0.9 (0.8-1.1) Activated Partial Thromboplast Time 28 SEC (24-38) Sodium Level 140 mmol/L (136-145) Potassium Level 5.4 mmol/L (3.5-5.1) Chloride Level 103 mmol/L (98-107) Carbon Dioxide Level 24 mmol/L (21-32) Anion Gap 13 (6-14) Blood Urea Nitrogen 27 mg/dL (8-26) Creatinine 1.6 mg/dL (0.7-1.3) Estimated GFR (Cockcroft-Gault) 42.2 BUN/Creatinine Ratio 17 (6-20) Glucose Level 131 mg/dL (70-99) Lactic Acid Level 2.0 mmol/L (0.4-2.0) Calcium Level 9.4 mg/dL (8.5-10.1) Magnesium Level 1.9 mg/dL (1.8-2.4) Total Bilirubin 0.3 mg/dL (0.2-1.0) Aspartate Amino Transf (AST/SGOT) 24 U/L (15-37) Alanine Aminotransferase (ALT/SGPT) 30 U/L (16-63) Alkaline Phosphatase 104 U/L (46-116) Ammonia < 10 mcmol/L (11-34) Creatine Kinase 98 U/L (39-308) Troponin I Quantitative < 0.017 ng/mL (0.000-0.055) AN-Rld-X-Type Natriuretic Peptide 146 pg/mL (0-449) Total Protein 8.1 g/dL (6.4-8.2) Albumin 4.2 g/dL (3.4-5.0) Albumin/Globulin Ratio 1.1 (1.0-1.7) Lipase 993 U/L (73-393) Urine Color Yellow Urine Clarity Clear Urine pH 6.0 Urine Specific [place] 1.025 Urine Protein Negative mg/dL (NEG-TRACE) Urine Glucose (UA) >=1000 mg/dL (NEG) Urine Ketones (Stick) Negative mg/dL (NEG) Urine Blood Moderate (NEG) Urine Nitrite Negative (NEG) Urine Bilirubin Negative (NEG) Urine Urobilinogen Dipstick 0.2 mg/dL (0.2 mg/dL) Urine Leukocyte Esterase Negative (NEG) Urine RBC 6-10 /HPF (0-2) Urine WBC 1-4 /HPF (0-4) Urine Squamous Epithelial Cells Occ /LPF Urine Bacteria 0 /HPF (0-FEW) Urine Opiates Screen Neg (NEG) Urine Methadone Screen Neg (NEG) Urine Barbiturates Neg (NEG) Urine Phencyclidine Screen Neg (NEG) Urine Amphetamine/Methamphetamine Neg (NEG) Urine Benzodiazepines Screen Neg (NEG) Urine Cocaine Screen Neg (NEG) Urine Cannabinoids Screen Neg (NEG) Urine Ethyl Alcohol Neg (NEG) Glucose (Fingerstick) 139 mg/dL (70-99) Review of Systems Review of Systems Unable to obtain the patient doesn't speak much Assessment and Plan Assessmemt and Plan Problems Medical Problems: (1) Acute pancreatitis Status: Acute (2) Hyperkalemia Status: Acute (3) Renal insufficiency Status: Acute (4) SIRS (systemic inflammatory response syndrome) Status: Acute abdominal pain acute pancreatitis, NPO, clear fluids SIRS, start zosyn, dementia?? 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 Labs Laboratory Tests Test 04/02/19 16:48 04/02/19 19:30 04/02/19 20:20 White Blood Count 15.3 x10^3/uL (4.0-11.0) Red Blood Count 5.34 x10^6/uL (4.30-5.70) Hemoglobin 16.8 g/dL (13.0-17.5) Hematocrit 50.0 % (39.0-53.0) Mean Corpuscular Volume 94 fL (79-100) Mean Corpuscular Hemoglobin 32 pg (25-35) Mean Corpuscular Hemoglobin Concent 34 g/dL (31-37) Red Cell Distribution Width 12.8 % (11.5-14.5) Platelet Count 180 x10^3/uL (140-400) Neutrophils (%) (Auto) 80 % (31-73) Lymphocytes (%) (Auto) 12 % (24-48) Monocytes (%) (Auto) 7 % (0-9) Eosinophils (%) (Auto) 1 % (0-3) Basophils (%) (Auto) 1 % (0-3) Neutrophils # (Auto) 12.2 x10^3uL (1.8-7.7) Lymphocytes # (Auto) 1.8 x10^3/uL (1.0-4.8) Monocytes # (Auto) 1.1 x10^3/uL (0.0-1.1) Eosinophils # (Auto) 0.1 x10^3/uL (0.0-0.7) Basophils # (Auto) 0.1 x10^3/uL (0.0-0.2) Prothrombin Time 11.9 SEC (11.7-14.0) Prothromb Time International Ratio 0.9 (0.8-1.1) Activated Partial Thromboplast Time 28 SEC (24-38) Sodium Level 140 mmol/L (136-145) Potassium Level 5.4 mmol/L (3.5-5.1) Chloride Level 103 mmol/L (98-107) Carbon Dioxide Level 24 mmol/L (21-32) Anion Gap 13 (6-14) Blood Urea Nitrogen 27 mg/dL (8-26) Creatinine 1.6 mg/dL (0.7-1.3) Estimated GFR (Cockcroft-Gault) 42.2 BUN/Creatinine Ratio 17 (6-20) Glucose Level 131 mg/dL (70-99) Lactic Acid Level 2.0 mmol/L (0.4-2.0) Calcium Level 9.4 mg/dL (8.5-10.1) Magnesium Level 1.9 mg/dL (1.8-2.4) Total Bilirubin 0.3 mg/dL (0.2-1.0) Aspartate Amino Transf (AST/SGOT) 24 U/L (15-37) Alanine Aminotransferase (ALT/SGPT) 30 U/L (16-63) Alkaline Phosphatase 104 U/L (46-116) Ammonia < 10 mcmol/L (11-34) Creatine Kinase 98 U/L (39-308) Troponin I Quantitative < 0.017 ng/mL (0.000-0.055) CG-Tpp-X-Type Natriuretic Peptide 146 pg/mL (0-449) Total Protein 8.1 g/dL (6.4-8.2) Albumin 4.2 g/dL (3.4-5.0) Albumin/Globulin Ratio 1.1 (1.0-1.7) Lipase 993 U/L (73-393) Urine Color Yellow Urine Clarity Clear Urine pH 6.0 Urine Specific [place] 1.025 Urine Protein Negative mg/dL (NEG-TRACE) Urine Glucose (UA) >=1000 mg/dL (NEG) Urine Ketones (Stick) Negative mg/dL (NEG) Urine Blood Moderate (NEG) Urine Nitrite Negative (NEG) Urine Bilirubin Negative (NEG) Urine Urobilinogen Dipstick 0.2 mg/dL (0.2 mg/dL) Urine Leukocyte Esterase Negative (NEG) Urine RBC 6-10 /HPF (0-2) Urine WBC 1-4 /HPF (0-4) Urine Squamous Epithelial Cells Occ /LPF Urine Bacteria 0 /HPF (0-FEW) Urine Opiates Screen Neg (NEG) Urine Methadone Screen Neg (NEG) Urine Barbiturates Neg (NEG) Urine Phencyclidine Screen Neg (NEG) Urine Amphetamine/Methamphetamine Neg (NEG) Urine Benzodiazepines Screen Neg (NEG) Urine Cocaine Screen Neg (NEG) Urine Cannabinoids Screen Neg (NEG) Urine Ethyl Alcohol Neg (NEG) Glucose (Fingerstick) 139 mg/dL (70-99) Laboratory Tests Test 04/02/19 16:48 04/02/19 19:30 04/02/19 20:20 White Blood Count 15.3 x10^3/uL (4.0-11.0) Red Blood Count 5.34 x10^6/uL (4.30-5.70) Hemoglobin 16.8 g/dL (13.0-17.5) Hematocrit 50.0 % (39.0-53.0) Mean Corpuscular Volume 94 fL (79-100) Mean Corpuscular Hemoglobin 32 pg (25-35) Mean Corpuscular Hemoglobin Concent 34 g/dL (31-37) Red Cell Distribution Width 12.8 % (11.5-14.5) Platelet Count 180 x10^3/uL (140-400) Neutrophils (%) (Auto) 80 % (31-73) Lymphocytes (%) (Auto) 12 % (24-48) Monocytes (%) (Auto) 7 % (0-9) Eosinophils (%) (Auto) 1 % (0-3) Basophils (%) (Auto) 1 % (0-3) Neutrophils # (Auto) 12.2 x10^3uL (1.8-7.7) Lymphocytes # (Auto) 1.8 x10^3/uL (1.0-4.8) Monocytes # (Auto) 1.1 x10^3/uL (0.0-1.1) Eosinophils # (Auto) 0.1 x10^3/uL (0.0-0.7) Basophils # (Auto) 0.1 x10^3/uL (0.0-0.2) Prothrombin Time 11.9 SEC (11.7-14.0) Prothromb Time International Ratio 0.9 (0.8-1.1) Activated Partial Thromboplast Time 28 SEC (24-38) Sodium Level 140 mmol/L (136-145) Potassium Level 5.4 mmol/L (3.5-5.1) Chloride Level 103 mmol/L (98-107) Carbon Dioxide Level 24 mmol/L (21-32) Anion Gap 13 (6-14) Blood Urea Nitrogen 27 mg/dL (8-26) Creatinine 1.6 mg/dL (0.7-1.3) Estimated GFR (Cockcroft-Gault) 42.2 BUN/Creatinine Ratio 17 (6-20) Glucose Level 131 mg/dL (70-99) Lactic Acid Level 2.0 mmol/L (0.4-2.0) Calcium Level 9.4 mg/dL (8.5-10.1) Magnesium Level 1.9 mg/dL (1.8-2.4) Total Bilirubin 0.3 mg/dL (0.2-1.0) Aspartate Amino Transf (AST/SGOT) 24 U/L (15-37) Alanine Aminotransferase (ALT/SGPT) 30 U/L (16-63) Alkaline Phosphatase 104 U/L (46-116) Ammonia < 10 mcmol/L (11-34) Creatine Kinase 98 U/L (39-308) Troponin I Quantitative < 0.017 ng/mL (0.000-0.055) MJ-Rfc-P-Type Natriuretic Peptide 146 pg/mL (0-449) Total Protein 8.1 g/dL (6.4-8.2) Albumin 4.2 g/dL (3.4-5.0) Albumin/Globulin Ratio 1.1 (1.0-1.7) Lipase 993 U/L (73-393) Urine Color Yellow Urine Clarity Clear Urine pH 6.0 Urine Specific [place] 1.025 Urine Protein Negative mg/dL (NEG-TRACE) Urine Glucose (UA) >=1000 mg/dL (NEG) Urine Ketones (Stick) Negative mg/dL (NEG) Urine Blood Moderate (NEG) Urine Nitrite Negative (NEG) Urine Bilirubin Negative (NEG) Urine Urobilinogen Dipstick 0.2 mg/dL (0.2 mg/dL) Urine Leukocyte Esterase Negative (NEG) Urine RBC 6-10 /HPF (0-2) Urine WBC 1-4 /HPF (0-4) Urine Squamous Epithelial Cells Occ /LPF Urine Bacteria 0 /HPF (0-FEW) Urine Opiates Screen Neg (NEG) Urine Methadone Screen Neg (NEG) Urine Barbiturates Neg (NEG) Urine Phencyclidine Screen Neg (NEG) Urine Amphetamine/Methamphetamine Neg (NEG) Urine Benzodiazepines Screen Neg (NEG) Urine Cocaine Screen Neg (NEG) Urine Cannabinoids Screen Neg (NEG) Urine Ethyl Alcohol Neg (NEG) Glucose (Fingerstick) 139 mg/dL (70-99) Medications Current Medications Albuterol Sulfate (Ventolin Neb Soln) 10 mg 1X ONCE CONT NEB Last administered on 04/02/19at 18:39; Start 04/02/19 at 18:30; Stop 04/02/19 at 18:31; Status DC Sodium Chloride 1,000 ml @ 150 mls/hr Q6H40M IV Last administered on 04/03/19at 08:54; Start 04/02/19 at 18:18; Stop 04/03/19 at 18:17 Docusate Sodium (Colace) 100 mg DAILY PO Last administered on 04/03/19at 10:17; Start 04/03/19 at 09:00 Polyethylene Glycol (miraLAX PACKET) 17 gm BID PO Last administered on 04/03/19at 10:17; Start 04/03/19 at 09:30 Active Scripts Active Reported Fluconazole 100 Mg Tablet 100 Mg PO DAILY Metformin Hcl Er (Metformin Hcl) 500 Mg Tab.er.24h 500 Mg PO DAILY Invokana (Canagliflozin) 300 Mg Tablet 300 Mg PO DAILY Atorvastatin Calcium 20 Mg Tablet 20 Mg PO DAILY Vitals/I & O Vital Sign - Last 24 Hours 04/02/19 04/02/19 04/02/19 04/02/19 16:22 17:00 18:00 18:45 Temp 98.1 98.1 Pulse 111 106 108 Resp 24 18 18 B/P (MAP) 187/98 (127) 152/94 (113) 146/83 (104) Pulse Ox 96 98 95 98 O2 Delivery Room Air Room Air Room Air Room Air 04/02/19 04/02/19 04/02/19 04/02/19 19:00 20:00 21:32 22:52 Temp 98.1 98.0 98.1 98.0 Pulse 108 101 118 104 Resp 18 20 20 20 B/P (MAP) 129/74 (92) 114/64 (81) 176/74 (108) 94/68 (77) Pulse Ox 99 98 96 92 O2 Delivery Room Air Room Air Room Air Room Air 04/02/19 04/03/19 04/03/19 23:30 02:58 07:00 Temp 98.0 98.7 98.0 98.7 Pulse 80 75 Resp 18 18 B/P (MAP) 95/51 (66) 125/78 (94) Pulse Ox 98 95 O2 Delivery Room Air Room Air Room Air Intake and Output 04/02/19 04/02/19 04/03/19 15:00 23:00 07:00 Output Total 900 ml Balance -900 ml LUIS TEMPLE III DO Apr 03, 2019 10:49
[2019-04-03 11:08] VITALS: BP 147/67
[2019-04-03 12:26] LABS: HEMATOCRIT 45.3 % (39.0-53.0); HEMOGLOBIN 15.1 g/dL (13.0-17.5); RED BLOOD COUNT 4.82 x10^6/uL (4.30-5.70); RED CELL DISTRIBUTION WIDTH 12.5 % (11.5-14.5); WHITE BLOOD COUNT 8.6 x10^3/uL (4.0-11.0)
[2019-04-03 12:43] LABS: CALCIUM 9.2 mg/dL (8.5-10.1); CREATININE 1.3 mg/dL (0.7-1.3); GFR 53.7; POTASSIUM 4.4 mmol/L (3.5-5.1)
[2019-04-03 12:53] LABS: CHOLESTEROL/HDL RATIO 3.9
--- NOTE | 2019-04-03 14:50 | RAD ---
Right upper quadrant abdominal ultrasound compared to CT scan of the abdomen dated 04/02/2019 for abdominal pain, possible gallstones. TECHNIQUE AND FINDINGS: Real-time grayscale and color Doppler evaluation of the right upper abdominal organs is performed. FINDINGS: Midline structures including the IVC, aorta, and the pancreas are obscured by bowel gas. There is diffuse fatty infiltration of the liver with no definite focal parenchymal abnormalities identified. No intra or extrahepatic biliary ductal dilatation. The portal vein is patent and hepatopedal. Gallbladder is fluid distended but free of any shadowing stones or sludge, pericholecystic fluid, or gallbladder wall thickening. No sonographic Carbajal sign was elicited. The common bile duct measures 3 mm. The right kidney is somewhat atrophic, measuring 10.2 x 3.8 x 4.6 cm compared to left which measures 11.7 x 5.1 x 7.2 cm. There is cortical thinning throughout the right kidney, but not the left suggesting unilateral atrophy, perhaps due to underlying arterial stenosis. Left kidney is notable for a 2.4 cm simple exophytic renal cyst. The spleen is largely obscured, but visualized portions are unremarkable. IMPRESSION: 1. Diffuse fatty infiltration of the liver. 2. Unilateral right renal atrophy. This can occur in the setting renal artery stenosis. If clinically warranted, further evaluation with renal artery duplex ultrasound study or CTA could clarify. 3. No evidence of acute cholecystitis or cholelithiasis. 4. Simple left renal cyst. Electronically signed by: Shantanu Gan MD (04/03/2019 2:47 PM) [id number]
[2019-04-03 15:00] VITALS: BP 134/77
[2019-04-03] MEDS ORDERED: diphenhydrAMINE HCL 25 MG CAPSULE PO PRN (18:30)
[2019-04-03 19:35] VITALS: BP 137/69
[2019-04-03] MEDS ORDERED: ATORVASTATIN CALCIUM 20 MG TABLET PO SCH (21:00)
[2019-04-03 23:40] VITALS: BP 124/84
[2019-04-04 03:40] VITALS: BP 142/73
[2019-04-04 07:20] VITALS: BP 131/81
[2019-04-04] MEDS ORDERED: NON FORMULARY ITEM (Canagliflozin (Invokana) 300 MG) PO SCH (09:00)
[2019-04-04] MEDS ORDERED: DULA0.75 SQ (09:24)
[2019-04-04] MEDS ORDERED: LISI10TA2 PO (09:26)
[2019-04-04] MEDS: POLYETHYLENE GLYCOL 3350 17 GM PACKET. PO SCH (09:27)
[2019-04-04] MEDS: DOCUSATE SODIUM 100 MG CAPSULE. PO SCH (09:27)
[2019-04-04] MEDS ORDERED: LISINOPRIL 10 MG TABLET PO SCH (10:30)
--- NOTE | 2019-04-04 10:59 | PDOC ---
Subjective: Subjective: present. Tolerating PO (full liquids), hasn't stooled, denies pain. Some discussion of discharge today. Home meds restarted this morning. says takes Miralax PRN at home. No previous scopes. Objective: Vital Signs: Vital Signs Date Time Temp Pulse Resp B/P (MAP) Pulse Ox O2 Delivery O2 Flow Rate FiO2 04/04/19 07:20 97.4 72 16 131/81 (98) 96 Room Air 97.4 Labs: Laboratory Tests Test 04/03/19 12:03 04/03/19 12:05 04/03/19 16:34 04/03/19 20:27 Glucose (Fingerstick) 128 mg/dL 106 mg/dL 133 mg/dL White Blood Count 8.6 x10^3/uL Red Blood Count 4.82 x10^6/uL Hemoglobin 15.1 g/dL Hematocrit 45.3 % Mean Corpuscular Volume 94 fL Mean Corpuscular Hemoglobin 31 pg Mean Corpuscular Hemoglobin Concent 33 g/dL Red Cell Distribution Width 12.5 % Platelet Count 154 x10^3/uL Sodium Level 141 mmol/L Potassium Level 4.4 mmol/L Chloride Level 106 mmol/L Carbon Dioxide Level 25 mmol/L Anion Gap 10 Blood Urea Nitrogen 18 mg/dL Creatinine 1.3 mg/dL Estimated GFR (Cockcroft-Gault) 53.7 Glucose Level 128 mg/dL Calcium Level 9.2 mg/dL Triglycerides Level 166 mg/dL Cholesterol Level 143 mg/dL LDL Cholesterol, Calculated 73 mg/dL VLDL Cholesterol, Calculated 33 mg/dL Non-HDL Cholesterol Calculated 106 mg/dL HDL Cholesterol 37 mg/dL Cholesterol/HDL Ratio 3.9 Lipase 453 U/L Test 04/04/19 00:03 04/04/19 08:03 Glucose (Fingerstick) 114 mg/dL 175 mg/dL Imaging: Abd US IMPRESSION: 1. Diffuse fatty infiltration of the liver. 2. Unilateral right renal atrophy. This can occur in the setting renal artery stenosis. If clinically warranted, further evaluation with renal artery duplex ultrasound study or CTA could clarify. 3. No evidence of acute cholecystitis or cholelithiasis. 4. Simple left renal cyst. PE: GEN: NAD LUNGS: CTAB HEART: RRR ABD: NABS, S/ND/NT NEURO/PSYCH: some confusion though better than yesterday A/P: Dementia Elevated lipase - improved; unremarkable pancreas on CT, no typical pancreatitis symptoms H/o intermittent constipation CRC screen - none -- Okay to PAIGE miranda/toshia RN. Continue Miralax, try Dulcolax. DC per primary. BARBER SELLERS Apr 04, 2019 10:59
[2019-04-04 11:20] VITALS: BP 121/72
[2019-04-04] MEDS ORDERED: BISACODYL 5 MG TABLET.DR. PO ONE (11:30)
--- NOTE | 2019-04-04 11:47 | NUR ---
SW following pt for anticipated dc needs. Chart reviewed. Pt lives at home with spouse and no dc recommendations noted at this time.
[2019-04-04] MEDS ORDERED: metFORMIN 500 MG TABLET PO SCH (12:00)
--- NOTE | 2019-04-04 13:55 | NUR ---
Pt discharged to home with . Discussed discharge instructions. Verbalized understanding.
--- NOTE | 2019-04-04 22:47 | DS ---
DATE OF DISCHARGE: 04/04/2019 ADMISSION DIAGNOSIS: Pancreatitis. DISCHARGE DIAGNOSIS: Resolving pancreatitis, history of possible dementia. 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 CONSULTS: GI. PROCEDURES: None. HOSPITAL COURSE: The patient is a pleasant middle-aged male, who presented with some abdominal pain and confusion. He was weak, did have a bump in his lipase to 1000. He was admitted. We consulted GI. We gave him fluids and p.r.n. meds. Continued p.r.n. pain meds and continued his home meds. This morning when I saw and examined him, his heart tones were normal. His lungs were clear. He wants to go home. His is there. She states he looks great. We plan to discharge if okay with consults. DISPOSITION: Home. ACTIVITY: As tolerated. DIET: Low sodium. MEDICATIONS: Please see the MRAD. TOTAL TIME: 32 minutes. LUIS TEMPLE DO DR: DANA/norman JOB#: [id number] / [id number]
[2019-04-11] MEDS ORDERED: NON FORMULARY ITEM (Dulaglutide (Trulicity) 0.75 MG) SQ SCH (09:00)
== END 2019-04-04 13:53 | disposition home or self-care (01) | DRG 438 ==
LOC: ER 16:21 → 6 SOUTH 19:29
PROVIDERS: ADMIT Internal Medicine; ATTEND Internal Medicine
DX: K85.90 Acute pancreatitis without necrosis or infection, unspecified (principal); N17.0 Acute kidney failure with tubular necrosis; R65.10 Systemic inflammatory response syndrome (SIRS) of non-infectious origin without acute organ dysfunction; F03.90 Unspecified dementia, unspecified severity, without behavioral disturbance, psychotic disturbance, mood disturbance, and anxiety; E87.5 Hyperkalemia; I12.9 Hypertensive chronic kidney disease with stage 1 through stage 4 chronic kidney disease, or unspecified chronic kidney disease; K59.00 Constipation, unspecified; N18.3 Chronic kidney disease, stage 3 (moderate); E11.22 Type 2 diabetes mellitus with diabetic chronic kidney disease; E78.5 Hyperlipidemia, unspecified; K57.30 Diverticulosis of large intestine without perforation or abscess without bleeding; K40.90 Unilateral inguinal hernia, without obstruction or gangrene, not specified as recurrent; K44.9 Diaphragmatic hernia without obstruction or gangrene; Z87.891 Personal history of nicotine dependence
CPT/HCPCS: 36415; 70450; 74022; 74176; 76700; 80048; 80053; 80061; 80307; 81001; 82140; 82550; 82962; 83605; 83690; 83735; 83880; 84484; 85025; 85027; 85610; 85730; 93005; 94644; J7030; J7613; Q0163; 99285-25

== ENCOUNTER 2019-07-23 09:54 | Inpatient (IN) | payer OTHER ==
[2019-07-23] VITALS (9 sets, daily range): BP systolic 78–104; BP diastolic 38–46
[~2019-07-23] VITALS: Ht 185.4 cm; Wt 92.5 kg
[~2019-07-23 09:54] MED LIST changes: +ASPI81TA50 PO; +DONE10TA61 PO; +FLUC100T7 PO; +HEPARIN SODIUM 5,000 UNIT in IV RINGERS,LACTATED 500ML 500 ML IRR ONE; +HYDROmorphone 2 MG/ML VIAL IV PRN; +IV RINGERS,LACTATED 1000ML 1,000 ML IV SCH; +LIDOCAINE 1% PF 2 ML VIAL. ID PRN; +METF100010 PO; +METF500T11 PO; -METF500T9 PO; +MORPHINE SULFATE 2 MG/ML VIAL. IV PRN; +PROCHLORPERAZINE 10 MG/2 ML VIAL. IV PRN; +SITA100T PO
[2019-07-23 10:30] LABS: BASO # 0.1 x10^3/uL (0.0-0.2); BASO % 0 % (0-3); EOS # 0.2 x10^3/uL (0.0-0.7); EOS % 1 % (0-3); HEMATOCRIT 46.3 % (39.0-53.0); HEMOGLOBIN 15.4 g/dL (13.0-17.5); LYMPH # 2.5 x10^3/uL (1.0-4.8); LYMPH % 18 % (24-48); MEAN CORPUSCULAR HEMOGLOBIN 31 pg (25-35); MEAN CORPUSCULAR HGB CONC 33 g/dL (31-37); MEAN CORPUSCULAR VOLUME 94 fL (79-100); MONO # 1.1 x10^3/uL (0.0-1.1); MONO % 8 % (0-9); NEUT # 9.9 x10^3/uL (1.8-7.7); NEUT % 72 % (31-73); PLATELET COUNT 204 x10^3/uL (140-400); RED BLOOD COUNT 4.94 x10^6/uL (4.30-5.70); RED CELL DISTRIBUTION WIDTH 13.4 % (11.5-14.5); WHITE BLOOD COUNT 13.8 x10^3/uL (4.0-11.0)
[2019-07-23 10:35] LABS: CALCIUM 9.3 mg/dL (8.5-10.1); CREATININE 1.4 mg/dL (0.7-1.3); GFR 49.3; POTASSIUM 4.8 mmol/L (3.5-5.1)
[2019-07-23 10:39] LABS: PROTHROMBIN TIME PATIENT 12.6 SEC (11.7-14.0)
[2019-07-23] MEDS ORDERED: SURGICEL FIBRILLAR 1X2 EACH. ONE (10:54)
[2019-07-23] MEDS ORDERED: LIDOCAINE 1% PF 30 ML VIAL. ONE (10:54)
[2019-07-23] MEDS ORDERED: PROTAMINE 50 MG/5 ML VIAL. IV ONE (10:55)
[2019-07-23] MEDS ORDERED: INSULIN LISPRO 100 UNIT/ML 3ML VIAL for OP,RR ONLY. SQ PRN (11:00)
--- NOTE | 2019-07-23 11:10 | RAD ---
EXAM: Chest, 2 views. HISTORY: Cigarette smoking history. COMPARISON: None. FINDINGS: 2 views of the chest are obtained. There is mild diffuse interstitial prominence. There is chronic in appearance. There is no consolidation, pleural effusion or pneumothorax. There is a prominent cardiac silhouette. There are healed rib fractures. There is a healed left clavicle fracture. IMPRESSION: No acute pulmonary finding. There are suspected chronic mild increased interstitial markings. Electronically signed by: Shirley Pierson MD (07/23/2019 11:07 AM) [place] [id number]
[2019-07-23] MEDS ORDERED: MIDAZOLAM HCL/PF 2 MG/2 ML VIAL. ONE (12:42)
[2019-07-23] MEDS ORDERED: BUPIVACAINE MPF 0.25% 10 ML VIAL. ONE (12:42)
[2019-07-23] MEDS ORDERED: BISACODYL 10 MG SUPP.RECT. PR PRN (13:00)
[2019-07-23] MEDS ORDERED: MORPHINE SULFATE 2 MG/ML VIAL. IV PRN (13:00)
[2019-07-23] MEDS ORDERED: ONDANSETRON PF 4 MG/2 ML VIAL. IV PRN (13:00)
[2019-07-23] MEDS ORDERED: hydrALAZINE 20 MG/ML VIAL. IVP PRN (13:00)
[2019-07-23] MEDS ORDERED: LABETALOL 20 MG/4 ML DISP.SYRIN. IVP PRN (13:00)
[2019-07-23] MEDS ORDERED: HYDROcodone/APAP 5/325MG 1 TAB TABLET PO PRN ×2 (13:00)
[2019-07-23] MEDS ORDERED: 0.9 % SODIUM CHLORIDE 10 ML DISP.SYRIN. IV PRN (13:00)
[2019-07-23] MEDS ORDERED: HEPARIN for IV BOLUS 10,000 UNIT/10 ML VIAL. ONE (13:58)
--- NOTE | 2019-07-23 15:28 | PDOC ---
BRIEF OPERATIVE NOTE Date: Jul 23, 2019 Pre-Op Diagnosis Left carotid stenosis > 80% Post-Op Diagnosis Same Procedure Performed Left carotid endarterectomy with bovine pericardial patch Surgeon Jimy Rodriguez MD Medical Sales Associate SHELBI Rosales Anesthesia Type: Local, Regional Blood Loss 50 mL Specimens Obtained None Findings Left carotid stenosis > 80% Complications None Operative Note See dictated op note KING GLEZ Jul 23, 2019 15:28
[2019-07-23] MEDS ORDERED: GLYCOPYRROLATE 1 MG/5 ML VIAL. ONE (15:29)
[2019-07-23] MEDS: metFORMIN 500 MG TABLET PO SCH (17:00)
[2019-07-23] MEDS: IV NORMAL SALINE 1000ML BAG 1,000 ML IV SCH ×2 (17:11→19:17)
[2019-07-23] MEDS ORDERED: GLYCOPYRROLATE 1 MG/5 ML VIAL. IV ONE (17:15)
[2019-07-23] MEDS: ACETAMINOPHEN 325 MG TABLET. PO SCH ×2 (17:35→21:34)
[2019-07-23] MEDS ORDERED: DEXTROSE 50% 25 GM / 50ML DISP.SYRIN. IV ONE ×2 (17:36→17:45)
--- NOTE | 2019-07-23 19:30 | EKG ---
[facility] [address] [place] [address] Test Date: 2019-07-23 Test Time: 19:34:23 Pat Name: BURAK GÓMEZ Department: Room: 106 1 Gender: M Car Unloader: MARCELA : 1945 Requested By: KENDAL LOVING Order Number: [id number] Reading MD: Measurements Intervals [place] Rate: 48 P: 0 HI: 250 QRS: 9 QRSD: 90 T: 24 QT: 454 QTc: 409 Interpretive Statements SINUS BRADYCARDIA PROLONGED HI INTERVAL LOW LIMB LEAD VOLTAGE ABNORMAL ECG RI6.01 Compared to ECG 04/02/2019 16:33:17 First degree AV block now present Sinus tachycardia no longer present Left-axis deviation no longer present Myocardial infarct finding no longer present
--- NOTE | 2019-07-23 20:25 | OP ---
DATE OF SURGERY: 07/23/2019 PREOPERATIVE DIAGNOSIS: Left carotid stenosis, asymptomatic. POSTOPERATIVE DIAGNOSIS: Left carotid stenosis, asymptomatic. OPERATION PERFORMED: Left carotid endarterectomy. SURGEON: Savanah Rodriguez MD SCALE ASSEMBLY SET UP WORKER: SHELBI Rosales ANESTHESIA: Regional block with sedation. INDICATIONS: This is a 74-year-old gentleman who has asymptomatic greater than 80% stenosis of the left internal carotid artery. He has a history of chronic occlusion of the right internal carotid artery. He has elected to proceed with left carotid endarterectomy. The operation, risks, and benefits were explained to the patient. He understood and wished to proceed. OPERATIVE FINDINGS: The patient had severe calcific plaque at the origin of the internal carotid artery on the left. Estimated degree of stenosis 80-90%. There is evidence of hemorrhage within the plaque. A standard endarterectomy was performed using longitudinal arteriotomy and the patch closure. The patient tolerated the procedure well and a shunt was not required. DESCRIPTION OF PROCEDURE: The patient was placed in the supine position with the head slightly elevated. A timeout was called and the correct patient, operation, and operative site were verified. The patient received 2 gm of IV Ancef. A cervical block was administered by Anesthesia. An incision was then made along the anterior border of sternocleidomastoid muscle. Incision was carried down. The internal jugular vein was identified and retracted laterally. The common carotid artery was easily palpable. This was dissected circumferentially and encircled with an umbilical tape and a Rumel tourniquet. Dissection was then carried further distally. The bifurcation was exposed carefully. The internal carotid artery was then exposed. Distally, the internal carotid was soft and blue without palpable plaque. Vessel loop was placed at this location. The external carotid and the superior thyroid arteries were also encircled with vessel loops. The patient received 7000 units of heparin and after 3 minutes circulation, an arteriotomy was made in the common carotid artery and extended past the bulb onto the internal carotid artery. The patient tolerated this well. A shunt was not required. A meticulous endarterectomy was then performed of the common external and internal carotid arteries. A nice feathered endpoint was obtained distally, and there were no tacking sutures that were required. Care was taken to remove all loose strands. A bovine pericardial patch was then placed in the standard fashion using 6-0 Prolene. Prior to completing the patch closure, the vessels were flushed appropriately. Flow was then restored first to the external carotid for several beats and then to the internal carotid artery. 50 mg of protamine was given. A fully perforated drain was placed within the wound space and brought out through a separate stab incision. The wound was then approximated with 2-0 Vicryl and the skin with intracuticular Vicryl and Steri-Strips. The patient tolerated the procedure well and was taken to the recovery room in satisfactory condition. SAVANAH RODRIGUEZ MD DR: ANA/norman JOB#: [id number] / [id number]
[2019-07-23] MEDS: ATORVASTATIN CALCIUM 20 MG TABLET PO SCH (21:34)
[2019-07-23] MEDS: DONEPEZIL HCL 10 MG TABLET. PO SCH (21:34)
[2019-07-24] VITALS (17 sets, daily range): BP systolic 72–120; BP diastolic 42–76
[2019-07-24] MEDS: IV NORMAL SALINE 1000ML BAG 1,000 ML IV SCH (03:11)
[2019-07-24] MEDS: ACETAMINOPHEN 325 MG TABLET. PO SCH ×3 (05:59→21:28)
[2019-07-24] MEDS ORDERED: ELECTROLYTE (ICU) PROTOCOL. MC PRN (06:00)
[2019-07-24] MEDS ORDERED: ELECTROLYTE (NON-ICU) PROTOCOL MC PRN (06:00)
[2019-07-24 07:36] LABS: HEMATOCRIT 39.8 % (39.0-53.0); HEMOGLOBIN 13.6 g/dL (13.0-17.5); RED BLOOD COUNT 4.3 x10^6/uL (4.30-5.70); RED CELL DISTRIBUTION WIDTH 13.4 % (11.5-14.5); WHITE BLOOD COUNT 10.9 x10^3/uL (4.0-11.0)
[2019-07-24 07:55] LABS: CALCIUM 8.8 mg/dL (8.5-10.1); CREATININE 1.3 mg/dL (0.7-1.3); GFR 53.7; POTASSIUM 4.5 mmol/L (3.5-5.1)
[2019-07-24 07:59] LABS: MAGNESIUM 1.7 mg/dL (1.8-2.4); PHOSPHORUS 3.9 mg/dL (2.6-4.7)
[2019-07-24 08:20] LABS: CHOLESTEROL/HDL RATIO 2.9
[2019-07-24] MEDS: metFORMIN 500 MG TABLET PO SCH ×2 (08:44→17:39)
[2019-07-24] MEDS: LINAGLIPTIN 5 MG TABLET PO SCH (08:44)
[2019-07-24] MEDS: ASPIRIN ENTERIC COATED 81 MG TABLET.DR. PO SCH (08:44)
[2019-07-24] MEDS: NON FORMULARY ITEM (Canagliflozin (Invokana) 300 MG) PO SCH (09:00)
[2019-07-24] MEDS: LISINOPRIL 10 MG TABLET PO SCH (09:00)
--- NOTE | 2019-07-24 09:35 | PDOC2 ---
RENNY LAZO [facility] 07/24/19 0934: CARDIAC CONSULT DATE OF CONSULT Date of Consult DATE: 07/24/19 TIME: 09:14 REASON FOR CONSULT Reason for Consult: Bradycardia REFERRING PHYSICIAN Referring Physician: Alexandra SOURCE Source: Chart review, Patient HISTORY OF PRESENT ILLNESS HISTORY OF PRESENT ILLNESS This is a pleasantly confused 74 yo male admitted for planned LCEA. He tolerated procedure well. He was noted with bradycardia but also was hypotensive. No significnat symptoms in relation to this but due to his low BP he was placed on dopamine drip in addition to IVF. He is sitting up, pain free and doing well. His HR is now currently in the 60s. Family is not at the bedside for further details. PAST MEDICAL HISTORY Cardiovascular: HTN, Hyperlipidemia, Other (carotid artery disease) CENTRAL NERVOUS SYSTEM: Dementia GI: Diverticulosis Heme/Onc: Cancer (bladder) Musculoskeletal: Osteoarthritis Renal/: Chronic renal insuff Endocrine: Diabetes (22) PAST SURGICAL HISTORY Past Surgical History: Other (cystoscopy) FAMILY HISTORY Family History noncontributory SOCIAL HISTORY Smoke: 2 packs per day ALCOHOL: none Drugs: None Lives: with Family CURRENT MEDICATIONS CURRENT MEDICATIONS Current Medications Medications (Trade) Dose Ordered Sig/Stephanie Route PRN Reason Start Time Stop Time Status Last Admin Dose Admin Lidocaine HCl (Xylocaine 1% Pf 30ml Vial) 30 ml STK-MED ONCE .ROUTE 07/23/19 10:54 07/23/19 10:54 DC 07/23/19 15:00 Insulin Human Lispro (HumaLOG VIAL for OP,RR ONLY) 0-10 units PRN Q1HR PRN SQ PER PROTOCOL 07/23/19 11:00 07/24/19 10:59 07/23/19 11:19 Sodium Chloride 1,000 ml @ 75 mls/hr [id number] IV 07/23/19 12:57 07/24/19 03:11 Acetaminophen (Tylenol) 650 mg Q8HRS PO 07/23/19 14:00 07/24/19 05:59 Aspirin (Ecotrin) 81 mg DAILY PO 07/24/19 09:00 07/24/19 08:44 Atorvastatin Calcium (Lipitor) 20 mg QHS PO 07/23/19 21:00 07/23/19 21:34 Donepezil HCl (Aricept) 10 mg QHS PO 07/23/19 21:00 07/23/19 21:34 Metformin HCl (Glucophage) 1,000 mg BIDWMEALS PO 07/23/19 17:00 07/24/19 08:44 Linagliptin (Tradjenta) 5 mg DAILY PO 07/24/19 09:00 07/24/19 08:44 Glycopyrrolate (Robinul) 0.2 mg 1X ONCE IV 07/23/19 17:15 07/23/19 17:17 DC 07/23/19 17:17 Dextrose (Dextrose 50%-Water Syringe) 25 gm 1X ONCE IV 07/23/19 17:45 07/23/19 17:46 DC 07/23/19 17:39 Dopamine HCl/ Dextrose 250 ml @ 6.872 mls/ hr CONT PRN IV SEE I/O RECORD 07/23/19 22:00 07/23/19 22:32 ALLERGIES ALLERGIES: Coded Allergies: diflorasone (Verified Adverse Reaction, Intermediate, Diarrhea, 07/23/19) ROS Review of System limited, dementia PHYSICAL EXAM General: Alert, Cooperative, No acute distress HEENT: Atraumatic, Mucous membr. moist/pink Lungs: Other (faint basilar crackles) Heart: Regular rate (SR), Normal S1, Normal S2, Other (2/6 systolic murmur to LLS border) Abdomen: Soft, No tenderness Extremities: No cyanosis, No edema Neuro: Sensation intact Psych/Mental Status: Other (pleasantly confused, sitting up ) MUSCULOSKELETAL: Osteoarthritic changes both hands VITALS/I&O VITALS/I&O: Vital Signs Date Time Temp Pulse Resp B/P (MAP) Pulse Ox O2 Delivery O2 Flow Rate FiO2 07/24/19 06:00 44 22 112/45 (67) 99 Room Air 07/24/19 04:00 98.5 98.5 07/23/19 17:26 2.0 I & O 07/23/19 07/23/19 07/24/19 15:00 23:00 07:00 Intake Total 50 ml 2055 ml 2409 ml Output Total 500 ml 20 ml Balance 50 ml 1555 ml 2389 ml LABS Lab: Laboratory Tests Test 07/23/19 10:15 07/23/19 16:16 07/23/19 17:32 07/23/19 17:57 White Blood Count 13.8 x10^3/uL (4.0-11.0) H Red Blood Count 4.94 x10^6/uL (4.30-5.70) Hemoglobin 15.4 g/dL (13.0-17.5) Hematocrit 46.3 % (39.0-53.0) Mean Corpuscular Volume 94 fL (79-100) Mean Corpuscular Hemoglobin 31 pg (25-35) Mean Corpuscular Hemoglobin Concent 33 g/dL (31-37) Red Cell Distribution Width 13.4 % (11.5-14.5) Platelet Count 204 x10^3/uL (140-400) Neutrophils (%) (Auto) 72 % (31-73) Lymphocytes (%) (Auto) 18 % (24-48) L Monocytes (%) (Auto) 8 % (0-9) Eosinophils (%) (Auto) 1 % (0-3) Basophils (%) (Auto) 0 % (0-3) Neutrophils # (Auto) 9.9 x10^3/uL (1.8-7.7) H Lymphocytes # (Auto) 2.5 x10^3/uL (1.0-4.8) Monocytes # (Auto) 1.1 x10^3/uL (0.0-1.1) Eosinophils # (Auto) 0.2 x10^3/uL (0.0-0.7) Basophils # (Auto) 0.1 x10^3/uL (0.0-0.2) Prothrombin Time 12.6 SEC (11.7-14.0) Prothrombin Time INR 1.0 (0.8-1.1) Activated Partial Thromboplast Time 30 SEC (24-38) Sodium Level 139 mmol/L (136-145) Potassium Level 4.8 mmol/L (3.5-5.1) Chloride Level 105 mmol/L (98-107) Carbon Dioxide Level 28 mmol/L (21-32) Anion Gap 6 (6-14) Blood Urea Nitrogen 27 mg/dL (8-26) H Creatinine 1.4 mg/dL (0.7-1.3) H Estimated GFR (Cockcroft-Gault) 49.3 Glucose Level 125 mg/dL (70-99) H Calcium Level 9.3 mg/dL (8.5-10.1) Glucose (Fingerstick) 79 mg/dL (70-99) 68 mg/dL (70-99) L 56 mg/dL (70-99) L Test 07/23/19 18:15 07/23/19 23:20 07/24/19 07:20 Glucose (Fingerstick) 131 mg/dL (70-99) H 133 mg/dL (70-99) H White Blood Count 10.9 x10^3/uL (4.0-11.0) Red Blood Count 4.30 x10^6/uL (4.30-5.70) Hemoglobin 13.6 g/dL (13.0-17.5) Hematocrit 39.8 % (39.0-53.0) Mean Corpuscular Volume 93 fL (79-100) Mean Corpuscular Hemoglobin 32 pg (25-35) Mean Corpuscular Hemoglobin Concent 34 g/dL (31-37) Red Cell Distribution Width 13.4 % (11.5-14.5) Platelet Count 160 x10^3/uL (140-400) Sodium Level 139 mmol/L (136-145) Potassium Level 4.5 mmol/L (3.5-5.1) Chloride Level 106 mmol/L (98-107) Carbon Dioxide Level 23 mmol/L (21-32) Anion Gap 10 (6-14) Blood Urea Nitrogen 24 mg/dL (8-26) Creatinine 1.3 mg/dL (0.7-1.3) Estimated GFR (Cockcroft-Gault) 53.7 Glucose Level 134 mg/dL (70-99) H Calcium Level 8.8 mg/dL (8.5-10.1) Phosphorus Level 3.9 mg/dL (2.6-4.7) Magnesium Level 1.7 mg/dL (1.8-2.4) L Triglycerides Level 133 mg/dL (0-150) Cholesterol Level 113 mg/dL (0-200) LDL Cholesterol, Calculated 47 mg/dL (0-100) VLDL Cholesterol, Calculated 27 mg/dL (0-40) Non-HDL Cholesterol Calculated 74 mg/dL (0-129) HDL Cholesterol 39 mg/dL (40-60) L Cholesterol/HDL Ratio 2.9 Thyroid Stimulating Hormone (TSH) 0.208 uIU/mL (0.358-3.74) L Laboratory Tests 07/23/19 10:15 07/24/19 07:20 Laboratory Tests 07/23/19 10:15 07/24/19 07:20 ASSESSMENT/PLAN ASSESSMENT/PLAN 1. Asymptomatic severe left carotid artery stenosis: S/P LCEA POD#1 2. Sinus bradycardia with hypotension: likely induced by intraopmeds with associated use of aricept (half life of at least 70 hrs) 3. HTN: hold BP meds for now 4. HLP 5. DM2: with hypoglycemia episodes 6. Dementia: pleasantly confused. 7. CKD: possibly stage 3, New finding, recently noted right atrophic kidney/left renal cyst. US would be recommended to check for ROEL as well Recommendations 1. TTE 2. Consider stopping aricept and utilizing namenda instead. 3. Will titrate off dopamine. Continue with IVF, Monitor BP and HR trend. No AV mario blocking agents 4. Hold off BP med for now. 5. Continue secondary prevention MEHRAN SAMPSON MD 07/24/19 1556: CARDIAC CONSULT ASSESSMENT/PLAN ASSESSMENT/PLAN Patient seen and examined. Agree with TRAVEL ASSISTANT's assessment and plan. Sinus bradycardia improved. Titrate dopamine off as blood pressure tolerates. 2-D echo showed normal LV systolic function. Plan outpatient event monitor. Continue postop care per vascular surgery. Thank you for your consultation. RENNY LAZO APRN Jul 24, 2019 09:34 MEHRAN SAMPSON MD Jul 24, 2019 15:56
[2019-07-24] MEDS ORDERED: MAGNESIUM SULFATE 2GM 50 ML IV ONE (10:00)
[2019-07-24] MEDS ORDERED: MAGNESIUM SULFATE 1GM 100 ML IV ONE (10:15)
--- NOTE | 2019-07-24 11:52 | PDOC ---
PROGRESS NOTES Subjective Subjective "I want to go home." Objective Objective Vascular Surgery - POD#1 Elective left CEA General: Examination performed at the bedside with and RN present. Patient is sitting comfortably in chair. Slightly anxious about being in the hospital. Denies complaint of pain, light-headedness or nausea. Neuro: Oriented to person and place. Recognizes his . Telling me about his 2 dogs at home. Told me he has not experienced any dizziness or light- headedness at home prior to hospitalization CV: Rhythm NSR/SB with HR = 56. Review of telemetry strips during the night reveal bradycardia with HR 40's with possible heart block, type II Mobitz. Not present on this morning's telemetry. SBP 90's. Dopamine gtt has just been turned off. No cardiac murmur noted. Resp: Bilaterally clear. Unlabored. Abd: Rounded. + sounds. Ate 100% of breakfast. Left neck: Dressing removed. Incision intact. No hematoma palpable. No drainage. GONZALES drain with minimal serosanguanous drainage. Assessment/Plan: 1. Critical asymptomatic SRINIVASA - POD#1 Elective left CEA in presence of known 100% occluded right carotid artery. GONZALES drain removed. Neurologically intact at his baseline. 2. Post operative hypotension with bradycardia. Has just been seen by cardiology medicine. Dopamine gtt has just been turned off to monitor BP. Antihypertensive meds on hold. Not on antiarrhythmic or beta brie therapy. Appreciate CV involvement. Planning TTE, holding BP meds, consideration of stopping Aricept and adding numenda due to cardiac effects. Preop neurology appt notes have been placed on the chart. They were also adding numenda. Continue to monitor on telemetry. 3. Dementia - as above. Will consult Hospitalists to assist with medical mgmt of multiple medical issues as well as diabetes. Patient will need to continue to be monitored and is not ready for discharge to home today. Await results of TTE and consultation recommendations with Hospitalists. Vital Signs Date Time Temp Pulse Resp B/P (MAP) Pulse Ox O2 Delivery O2 Flow Rate FiO2 07/24/19 10:00 58 18 112/76 (88) 98 Room Air 07/24/19 08:00 97.6 97.6 07/23/19 17:26 2.0 Intake and Output 07/24/19 06:59 Intake Total 4514 ml Output Total 520 ml Balance 3994 ml Intake Oral 940 ml IV Total 3574 ml Output Urine Total 500 ml Drainage Total 20 ml # Voids 2 Comment Review of Relevant I have reviewed the following items kuldeep (where applicable) has been applied. Labs Laboratory Tests Test 07/23/19 10:15 07/23/19 16:16 07/23/19 17:32 07/23/19 17:57 White Blood Count 13.8 x10^3/uL (4.0-11.0) Red Blood Count 4.94 x10^6/uL (4.30-5.70) Hemoglobin 15.4 g/dL (13.0-17.5) Hematocrit 46.3 % (39.0-53.0) Mean Corpuscular Volume 94 fL (79-100) Mean Corpuscular Hemoglobin 31 pg (25-35) Mean Corpuscular Hemoglobin Concent 33 g/dL (31-37) Red Cell Distribution Width 13.4 % (11.5-14.5) Platelet Count 204 x10^3/uL (140-400) Neutrophils (%) (Auto) 72 % (31-73) Lymphocytes (%) (Auto) 18 % (24-48) Monocytes (%) (Auto) 8 % (0-9) Eosinophils (%) (Auto) 1 % (0-3) Basophils (%) (Auto) 0 % (0-3) Neutrophils # (Auto) 9.9 x10^3/uL (1.8-7.7) Lymphocytes # (Auto) 2.5 x10^3/uL (1.0-4.8) Monocytes # (Auto) 1.1 x10^3/uL (0.0-1.1) Eosinophils # (Auto) 0.2 x10^3/uL (0.0-0.7) Basophils # (Auto) 0.1 x10^3/uL (0.0-0.2) Prothrombin Time 12.6 SEC (11.7-14.0) Prothromb Time International Ratio 1.0 (0.8-1.1) Activated Partial Thromboplast Time 30 SEC (24-38) Sodium Level 139 mmol/L (136-145) Potassium Level 4.8 mmol/L (3.5-5.1) Chloride Level 105 mmol/L (98-107) Carbon Dioxide Level 28 mmol/L (21-32) Anion Gap 6 (6-14) Blood Urea Nitrogen 27 mg/dL (8-26) Creatinine 1.4 mg/dL (0.7-1.3) Estimated GFR (Cockcroft-Gault) 49.3 Glucose Level 125 mg/dL (70-99) Calcium Level 9.3 mg/dL (8.5-10.1) Glucose (Fingerstick) 79 mg/dL (70-99) 68 mg/dL (70-99) 56 mg/dL (70-99) Test 07/23/19 18:15 07/23/19 23:20 07/24/19 07:20 Glucose (Fingerstick) 131 mg/dL (70-99) 133 mg/dL (70-99) White Blood Count 10.9 x10^3/uL (4.0-11.0) Red Blood Count 4.30 x10^6/uL (4.30-5.70) Hemoglobin 13.6 g/dL (13.0-17.5) Hematocrit 39.8 % (39.0-53.0) Mean Corpuscular Volume 93 fL (79-100) Mean Corpuscular Hemoglobin 32 pg (25-35) Mean Corpuscular Hemoglobin Concent 34 g/dL (31-37) Red Cell Distribution Width 13.4 % (11.5-14.5) Platelet Count 160 x10^3/uL (140-400) Sodium Level 139 mmol/L (136-145) Potassium Level 4.5 mmol/L (3.5-5.1) Chloride Level 106 mmol/L (98-107) Carbon Dioxide Level 23 mmol/L (21-32) Anion Gap 10 (6-14) Blood Urea Nitrogen 24 mg/dL (8-26) Creatinine 1.3 mg/dL (0.7-1.3) Estimated GFR (Cockcroft-Gault) 53.7 Glucose Level 134 mg/dL (70-99) Calcium Level 8.8 mg/dL (8.5-10.1) Phosphorus Level 3.9 mg/dL (2.6-4.7) Magnesium Level 1.7 mg/dL (1.8-2.4) Triglycerides Level 133 mg/dL (0-150) Cholesterol Level 113 mg/dL (0-200) LDL Cholesterol, Calculated 47 mg/dL (0-100) VLDL Cholesterol, Calculated 27 mg/dL (0-40) Non-HDL Cholesterol Calculated 74 mg/dL (0-129) HDL Cholesterol 39 mg/dL (40-60) Cholesterol/HDL Ratio 2.9 Thyroid Stimulating Hormone (TSH) 0.208 uIU/mL (0.358-3.74) Laboratory Tests Test 07/23/19 16:16 07/23/19 17:32 07/23/19 17:57 07/23/19 18:15 Glucose (Fingerstick) 79 mg/dL (70-99) 68 mg/dL (70-99) 56 mg/dL (70-99) 131 mg/dL (70-99) Test 07/23/19 23:20 07/24/19 07:20 Glucose (Fingerstick) 133 mg/dL (70-99) White Blood Count 10.9 x10^3/uL (4.0-11.0) Red Blood Count 4.30 x10^6/uL (4.30-5.70) Hemoglobin 13.6 g/dL (13.0-17.5) Hematocrit 39.8 % (39.0-53.0) Mean Corpuscular Volume 93 fL (79-100) Mean Corpuscular Hemoglobin 32 pg (25-35) Mean Corpuscular Hemoglobin Concent 34 g/dL (31-37) Red Cell Distribution Width 13.4 % (11.5-14.5) Platelet Count 160 x10^3/uL (140-400) Sodium Level 139 mmol/L (136-145) Potassium Level 4.5 mmol/L (3.5-5.1) Chloride Level 106 mmol/L (98-107) Carbon Dioxide Level 23 mmol/L (21-32) Anion Gap 10 (6-14) Blood Urea Nitrogen 24 mg/dL (8-26) Creatinine 1.3 mg/dL (0.7-1.3) Estimated GFR (Cockcroft-Gault) 53.7 Glucose Level 134 mg/dL (70-99) Calcium Level 8.8 mg/dL (8.5-10.1) Phosphorus Level 3.9 mg/dL (2.6-4.7) Magnesium Level 1.7 mg/dL (1.8-2.4) Triglycerides Level 133 mg/dL (0-150) Cholesterol Level 113 mg/dL (0-200) LDL Cholesterol, Calculated 47 mg/dL (0-100) VLDL Cholesterol, Calculated 27 mg/dL (0-40) Non-HDL Cholesterol Calculated 74 mg/dL (0-129) HDL Cholesterol 39 mg/dL (40-60) Cholesterol/HDL Ratio 2.9 Thyroid Stimulating Hormone (TSH) 0.208 uIU/mL (0.358-3.74) Medications Current Medications Morphine Sulfate (Morphine Sulfate) 1 mg PRN Q10MIN PRN IV SEVERE PAIN 7-10; Start 07/23/19 at 07:00; Stop 07/24/19 at 06:59; Status DC Ringer's Solution 1,000 ml @ 30 mls/hr Q24H IV Last administered on 07/23/19at 10:38; Start 07/23/19 at 07:00; Stop 07/23/19 at 18:59; Status DC Lidocaine HCl (Xylocaine-Mpf 1% 2ml Vial) 2 ml PRN 1X PRN ID PRIOR TO IV START; Start 07/23/19 at 07:00; Stop 07/24/19 at 06:59; Status DC Hydromorphone HCl (Dilaudid) 0.5 mg PRN Q10MIN PRN IV SEV PAIN, Second choice; Start 07/23/19 at 07:00; Stop 07/24/19 at 06:59; Status DC Prochlorperazine Edisylate (Compazine) 5 mg PACU PRN PRN IV NAUSEA, MRX1; Start 07/23/19 at 07:00; Stop 07/24/19 at 06:59; Status DC Cefazolin Sodium/ Dextrose 50 ml @ 100 mls/hr 1X PREOP PRN IV PRIOR TO PROCEDURE Last administered on 07/23/19at 13:46; Start 07/23/19 at 06:00; Stop 07/23/19 at 18:00; Status DC Heparin Sodium (Porcine) 5000 unit/Ringer's Solution 505 ml @ 505 mls/hr 1X ONCE IRR Last administered on 07/23/19at 13:50; Start 07/23/19 at 06:00; Stop 07/23/19 at 06:59; Status DC Cefazolin Sodium 1 gm/Sodium Chloride 500 ml @ 500 mls/hr 1X ONCE IRR Last administered on 07/23/19at 13:50; Start 07/23/19 at 06:00; Stop 07/23/19 at 06:59; Status DC Cellulose (Surgicel Fibrillar 1x2) 1 each STK-MED ONCE .ROUTE ; Start 07/23/19 at 10:54; Stop 07/23/19 at 10:54; Status DC Lidocaine HCl (Xylocaine 1% Pf 30ml Vial) 30 ml STK-MED ONCE .ROUTE Last administered on 07/23/19at 15:00; Start 07/23/19 at 10:54; Stop 07/23/19 at 10:54; Status DC Protamine Sulfate (Protamine) 50 mg STK-MED ONCE IV ; Start 07/23/19 at 10:55; Stop 07/23/19 at 10:55; Status DC Insulin Human Lispro (HumaLOG VIAL for OP,RR ONLY) 0-10 units PRN Q1HR PRN SQ PER PROTOCOL Last administered on 07/23/19at 11:19; Start 07/23/19 at 11:00; Stop 07/24/19 at 10:59; Status DC Bupivacaine HCl (Sensorcaine-Mpf 0.25%) 10 ml STK-MED ONCE .ROUTE ; Start 07/23/19 at 12:42; Stop 07/23/19 at 12:42; Status DC Midazolam HCl (Versed) 2 mg STK-MED ONCE .ROUTE ; Start 07/23/19 at 12:42; Stop 07/23/19 at 12:43; Status DC Info (Non-Icu Electrolyte Protocol) 1 ea DAILY PRN MC PER PROTOCOL; Start 07/24/19 at 06:00; Status Cancel Info (Icu Electrolyte Protocol) 1 ea DAILY PRN MC PER PROTOCOL; Start 07/24/19 at 06:00 Labetalol HCl (Normodyne Iv Push) 10 mg PRN Q2HR PRN IVP SBP > 160, 1st CHOICE; Start 07/23/19 at 13:00 Hydralazine HCl (Apresoline Inj) 10 mg PRN Q2HRS PRN IVP SBP > 160, 2nd CHOICE; Start 07/23/19 at 13:00 Sodium Chloride (Normal Saline Flush) 3 ml QSHIFT PRN IV AFTER MEDS AND BLOOD DRAWS; Start 07/23/19 at 13:00 Sodium Chloride 1,000 ml @ 75 mls/hr [id number] IV Last administered on 07/24/19at 03:11; Start 07/23/19 at 12:57; Stop 07/24/19 at 10:17; Status DC Morphine Sulfate (Morphine Sulfate) 1 mg PRN Q1HR PRN IV PAIN; Start 07/23/19 at 13:00 Acetaminophen/ Hydrocodone Bitart (Lortab 5/325) 1 tab PRN Q4HRS PRN PO MILD PAIN 1-3; Start 07/23/19 at 13:00 Acetaminophen/ Hydrocodone Bitart (Lortab 5/325) 2 tab PRN Q4HRS PRN PO MODERATE PAIN, SEVERE PAIN; Start 07/23/19 at 13:00 Acetaminophen (Tylenol) 650 mg Q8HRS PO Last administered on 07/24/19at 05:59; Start 07/23/19 at 14:00 Bisacodyl (Dulcolax Supp) 10 mg PRN DAILY PRN NC CONSTIPATION; Start 07/23/19 at 13:00 Ondansetron HCl (Zofran) 4 mg PRN Q6HRS PRN IV NAUESA, 1ST CHOICE; Start 07/23/19 at 13:00 Heparin Sodium (Porcine) (Heparin Sodium) 10,000 unit STK-MED ONCE .ROUTE ; Start 07/23/19 at 13:58; Stop 07/23/19 at 13:58; Status DC Nicardipine HCl (Cardene) 25 mg STK-MED ONCE IV ; Start 07/23/19 at 14:04; Stop 07/23/19 at 14:04; Status DC Aspirin (Ecotrin) 81 mg DAILY PO Last administered on 07/24/19at 08:44; Start 07/24/19 at 09:00 Atorvastatin Calcium (Lipitor) 20 mg QHS PO Last administered on 07/23/19at 21:34; Start 07/23/19 at 21:00 Donepezil HCl (Aricept) 10 mg QHS PO Last administered on 07/23/19at 21:34; Start 07/23/19 at 21:00 Lisinopril (Prinivil) 10 mg DAILY PO ; Start 07/24/19 at 09:00 Non-Formulary Medication (Canagliflozin (Invokana)) 300 mg DAILY PO ; Start 07/24/19 at 09:00; Status UNV Non-Formulary Medication (Dulaglutide (Trulicity)) 0.75 mg WEEKLY SQ ; Start 08/01/19 at 09:00; Status UNV Metformin HCl (Glucophage) 1,000 mg BIDWMEALS PO Last administered on 07/24/19at 08:44; Start 07/23/19 at 17:00 Linagliptin (Tradjenta) 5 mg DAILY PO Last administered on 07/24/19at 08:44; Start 07/24/19 at 09:00 Glycopyrrolate (Robinul) 1 mg STK-MED ONCE .ROUTE ; Start 07/23/19 at 15:29; St op 07/23/19 at 15:30; Status DC Glycopyrrolate (Robinul) 0.2 mg 1X ONCE IV Last administered on 07/23/19at 17:17; Start 07/23/19 at 17:15; Stop 07/23/19 at 17:17; Status DC Dextrose (Dextrose 50%-Water Syringe) 25 gm 1X ONCE IV Last administered on 07/23/19at 17:39; Start 07/23/19 at 17:45; Stop 07/23/19 at 17:46; Status DC Dextrose (Dextrose 50%-Water Syringe) 25 gm STK-MED ONCE IV ; Start 07/23/19 at 17:36; Stop 07/23/19 at 17:37; Status DC Dopamine HCl/ Dextrose 250 ml @ 6.872 mls/ hr CONT PRN IV SEE I/O RECORD Last administered on 07/23/19at 22:32; Start 07/23/19 at 22:00 Magnesium Sulfate 50 ml @ 25 mls/hr 1X ONCE IV Last administered on 07/24/19at 10:14; Start 07/24/19 at 10:00; Stop 07/24/19 at 11:59 Magnesium Sulfate/ Dextrose 100 ml @ 100 mls/hr 1X ONCE IV ; Start 07/24/19 at 10:15; Stop 07/24/19 at 11:14; Status UNV Active Scripts Active Reported Aricept (Donepezil Hcl) 10 Mg Tablet 1 Tab PO QHS Januvia (Sitagliptin Phosphate) 100 Mg Tablet 1 Tab PO DAILY Aspir-Low (Aspirin) 81 Mg Tablet.dr 1 Tab PO DAILY Metformin Hcl Er (Metformin Hcl) 1,000 Mg Tab.er.24 1,000 Mg PO BID Lisinopril 10 Mg Tablet 1 Tab PO DAILY Trulicity (Dulaglutide) 0.75 Mg/0.5 Ml Pen.injctr 0.75 Mg SQ WEEKLY Invokana (Canagliflozin) 300 Mg Tablet 300 Mg PO DAILY Atorvastatin Calcium 20 Mg Tablet 20 Mg PO DAILY Vitals/I & O Vital Sign - Last 24 Hours 07/23/19 07/23/19 07/23/19 07/23/19 15:11 15:30 15:45 16:00 Temp 97.3 97.3 Pulse 49 46 48 52 Resp 16 12 22 16 B/P (MAP) 109/51 102/50 88/48 94/52 Pulse Ox 96 96 96 96 O2 Delivery Nasal Cannula Nasal Cannula Nasal Cannula Nasal Cannula O2 Flow Rate 3 3 3 2 07/23/19 07/23/19 07/23/19 07/23/19 16:15 16:30 17:00 17:26 Temp 97.6 97.6 Pulse 47 56 48 Resp 14 18 22 B/P (MAP) 99/51 100/54 100/46 (64) Pulse Ox 95 96 100 O2 Delivery Nasal Cannula Nasal Cannula Room Air Nasal Cannula O2 Flow Rate 2.5 2 2.0 07/23/19 07/23/19 07/23/19 07/23/19 18:00 20:00 20:00 21:00 Temp 98.6 98.6 Pulse 76 44 44 Resp 20 22 22 B/P (MAP) 99/44 (62) 96/44 (61) 78/38 (51) Pulse Ox 100 100 98 O2 Delivery Room Air Room Air Room Air Room Air 07/23/19 07/23/19 07/23/19 07/23/19 22:00 22:30 22:45 23:00 Pulse 50 48 48 50 Resp 22 22 22 22 B/P (MAP) 90/38 (55) 96/44 (61) 98/42 (60) 90/38 (55) Pulse Ox 98 99 99 98 O2 Delivery Room Air Room Air Room Air Room Air 07/23/19 07/24/19 07/24/19 07/24/19 23:15 00:00 00:00 01:00 Temp 98.7 98.7 Pulse 48 48 47 Resp 22 22 22 B/P (MAP) 104/44 (64) 106/46 (66) 110/47 (68) Pulse Ox 97 98 94 O2 Delivery Room Air Room Air Room Air Room Air 07/24/19 07/24/19 07/24/19 07/24/19 02:00 03:00 04:00 04:00 Temp 98.5 98.5 Pulse 44 50 42 Resp 22 22 22 B/P (MAP) 98/45 (62) 96/45 (62) 103/42 (62) Pulse Ox 97 98 97 O2 Delivery Room Air Room Air Room Air Room Air 07/24/19 07/24/19 07/24/19 07/24/19 05:00 06:00 07:00 08:00 Pulse 45 44 46 Resp 22 22 20 B/P (MAP) 106/43 (64) 112/45 (67) 114/51 (72) Pulse Ox 98 99 93 O2 Delivery Room Air Room Air Room Air Room Air 07/24/19 07/24/19 07/24/19 08:00 09:00 10:00 Temp 97.6 97.6 Pulse 48 64 58 Resp 18 18 18 B/P (MAP) 104/48 (66) 93/48 (63) 112/76 (88) Pulse Ox 95 98 98 O2 Delivery Room Air Room Air Room Air Intake and Output 07/23/19 07/23/19 07/24/19 14:59 22:59 06:59 Intake Total 50 ml 2055 ml 2409 ml Output Total 500 ml 20 ml Balance 50 ml 1555 ml 2389 ml LEEANN FRAGOSO APRN Jul 24, 2019 11:52
--- NOTE | 2019-07-24 12:49 | CARD ---
MR#: [id number] Date of Study: 07/24/2019 Ordering Physician: RENNY LAZO, Referring Physician: RENNY LAZO Tech: Bea Gray CARLI APPROVED REPORT EXAM: Two-dimensional and M-mode echocardiogram with Doppler and color Doppler. Other Information Quality : Good Rhythm : Bradycardia INDICATION Abnormal ECG Bradycardia 2D DIMENSIONS RVDd2.7 (2.9-3.5cm)Left Atrium(2D)3.0 (1.6-4.0cm) IVSd1.1 (0.7-1.1cm)Aortic Root(2D)3.5 (2.0-3.7cm) LVDd4.6 (3.9-5.9cm)LVOT Diameter2.5 (1.8-2.4cm) PWd1.2 (0.7-1.1cm)LVDs2.9 (2.5-4.0cm) FS (%) 36.3 %SV64.6 ml LVEF(%)60.0 (>50%) M-Mode DIMENSIONS Aortic Cusp Exc1.80 (1.5-2.0cm) Aortic Valve AoV Peak León.273.2cm/sAoV VTI59.4cm AO Peak GR.29.8mmHgLVOT VTI 19.94cm AO Mean GR.15mmHgAVA (VTI)1.60cm2 Mitral Valve MV E Hogxhfuo61.2cm/sMV E Peak Gr.8mmHg MV DECEL [id number] A Alpifjvg913.2cm/s MV E Mean Gr.2mmHgE/A Ratio0.7 TDI Lateral E' P. V6.24cm/sMedial E' P. V6.11cm/s E/Lateral E'15.7E/Medial E'16.1 Tricuspid Valve TR P. Fcadlfdt387tl/sRAP [id number] TR Peak Gr.72xzOdOLTJ53edAs Pulmonary Vein S1 Blqmjjuj79.7cm/sS2 Bohziwbp49.71cm/s D2 Ihskrsvt64.7cm/s LEFT VENTRICLE The left ventricle is normal size. There is mild concentric left ventricular hypertrophy. The left ve ntricular systolic function is normal. The Ejection Fraction is 55-60%. There is normal LV segmental wall motion. Transmitral Doppler flow pattern is Grade I-abnormal relaxation pattern. RIGHT VENTRICLE The right ventricle is normal size. The right ventricular systolic function is normal. ATRIA The left atrium size is normal. The right atrium size is normal. The interatrial septum is intact wit h no evidence for an atrial septal defect or patent foramen ovale as noted on 2-D or Doppler imaging. AORTIC VALVE The aortic valve is calcified and displays decreased opening. Doppler and Color Flow revealed trace a ortic regurgitation. Calculated aortic valve area is 1.6 cm2 with maximum pressure gradient of 31 mmH g and mean pressure gradient of 17 mmHg. Doppler and color-flow analysis revealed mild aortic stenosi s. MITRAL VALVE The mitral valve is calcified but opens well. Mitral annular calcification is mild to moderate. There is no evidence of mitral valve prolapse. There is no mitral valve stenosis. Doppler and Color Flow r evealed no mitral valve regurgitation noted. TRICUSPID VALVE The tricuspid valve is normal in structure and function. Doppler and Color Flow revealed trace tricus pid regurgitation. The PA pressure was estimated at 23 mmHg. There is no tricuspid valve stenosis. PULMONIC VALVE The pulmonic valve is not well visualized. Doppler and Color Flow revealed mild pulmonic valvular reg urgitation. There is no pulmonic valvular stenosis. GREAT VESSELS The aortic root is normal in size. The ascending aorta is not well seen. The IVC is normal in size an d collapses >50% with inspiration. PERICARDIAL EFFUSION There is no evidence of significant pericardial effusion. Critical Notification Critical Value: No <Conclusion> The left ventricular systolic function is normal. The Ejection Fraction is 55-60%. There is normal LV segmental wall motion. Transmitral Doppler flow pattern is Grade I-abnormal relaxation pattern. Mild aortic stenosis. Trace tricuspid regurgitation. The PA pressure was estimated at 23 mmHg. There is no evidence of significant pericardial effusion. Signed by : Milton Morales, Electronically Approved : 07/24/2019 12:48:34
[2019-07-24] MEDS: DONEPEZIL HCL 10 MG TABLET. PO SCH (21:28)
[2019-07-24] MEDS: ATORVASTATIN CALCIUM 20 MG TABLET PO SCH (21:28)
[2019-07-25] MEDS: ACETAMINOPHEN 325 MG TABLET. PO SCH (06:00)
[2019-07-25 08:00] VITALS: BP 123/63
[2019-07-25] MEDS: ASPIRIN ENTERIC COATED 81 MG TABLET.DR. PO SCH (09:00)
[2019-07-25] MEDS: NON FORMULARY ITEM (Canagliflozin (Invokana) 300 MG) PO SCH (09:00)
[2019-07-25] MEDS: metFORMIN 500 MG TABLET PO SCH (09:01)
[2019-07-25] MEDS: LINAGLIPTIN 5 MG TABLET PO SCH (09:01)
[2019-07-25] MEDS: LISINOPRIL 10 MG TABLET PO SCH (09:01)
--- NOTE | 2019-07-25 09:54 | PDOC ---
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 07/25/19 0954: CARDIO Progress Notes Date and Time Date of Service 07/25/2019 Time of Evaluation 0930 Subjective Subjective: No Chest Pain, No shortness of breath, No Palpitations Vitals Vitals Vital Signs Date Time Temp Pulse Resp B/P (MAP) Pulse Ox O2 Delivery O2 Flow Rate FiO2 07/25/19 09:02 62 123/63 07/25/19 08:00 97.8 18 Room Air 97.8 07/25/19 01:28 95 Weight Weight [ ] Input and Output Intake and Output Intake and Output 07/25/19 07:00 Intake Total 1970 ml Output Total 650 ml Balance 1320 ml Intake Oral 1970 ml Output Urine Total 650 ml # Voids 1 # Bowel Movements 1 Laboratory Labs Laboratory Tests Test 07/24/19 11:41 07/24/19 16:55 07/25/19 08:45 Glucose (Fingerstick) 110 mg/dL (70-99) 108 mg/dL (70-99) 117 mg/dL (70-99) Physical Exam HEENT: Neck Supple W Full Motion Chest: Symmetric LUNGS: Clear to Auscultation Heart: S1S2, RRR (SR) Abdomen: Soft N/T Extremities: No Calf Tenderness Neurology: alert, oriented (to self and place), follow commands Assessment Assessment 1. Asymptomatic severe left carotid artery stenosis: S/P LCEA POD#2 doing well 2. Sinus bradycardia with hypotension: likely induced by intraopmeds with associated use of aricept (half life of at least 70 hrs) 3. HTN: controlled 4. HLP 5. DM2: per PCP 6. Dementia: pleasantly confused. 7. CKD: possibly stage 3, New finding, recently noted right atrophic kidney/left renal cyst. US would be recommended to check for ROEL as well Recommendations 1. Follow up in office on August 30 at 2:15 PM. Will arrange for 2 week event monitor 2. Consider stopping aricept and utilizing namenda instead. Defer to PCP 3. May start BP meds. No further bradycardia overnight and his BP has been well controlled 4. Continue secondary prevention MEHRAN SAMPSON MD 07/25/192034: CARDIO Progress Notes Assessment Assessment Patient seen and examined. Agree with EGG GRADER's assessment and plan. Sinus syeda resolved 2D echo showed normal LVF Plan event monitor as outpatient RENNY LAZO APRN Jul 25, 2019 09:54 MEHRAN SAMPSON MD Jul 25, 2019 20:35
[2019-07-25 11:50] VITALS: BP 102/56
[2019-07-25] MEDS ORDERED: HYDR-2761 PO (11:56)
--- NOTE | 2019-07-25 11:58 | DISCH ---
DISCHARGE INSTRUCTIONS Condition on Discharge Condition on Discharge: Stable Activity After Discharge Activity Instructions for Disc: Activity as tolerated Diet after Discharge Additional Diet Restrictions: follow preop diet Liquid Texture: Thin Liquid Wound Incision Care Wound/Incision Care: Ice to area for comfort Other wound/incision instructi: steristrips to remain in place 7 days Checks after Discharge Checks after discharge: Check blood press - daily Contacting the DRRae after DC Call your doctor for: If your condition worsens Follow-Up Follow up with: Dr. Rodriguez 08/07/820 Follow Up With: Follow up with Neurologist to evaluate medications with recent bradycardia Treatment/Equipment after DC Adaptive Equipment Issued: None YASMIN CLARK APRN Jul 25, 2019 11:58
--- NOTE | 2019-07-25 12:13 | PDOC3 ---
Discharge Summary Date of Admission: Jul 25, 2019 Date of Discharge: Jul 25, 2019 Follow-Up: Other (08/07/[id number] Dr. Rodriguez) Admitting Diagnosis comment: Left carotid stenosis FINAL DIAGNOSIS Problems Medical Problems: (1) CKD (chronic kidney disease) Status: Chronic (2) DM2 (diabetes mellitus, type 2) Status: Chronic (3) HLD (hyperlipidemia) Status: Chronic (4) HTN (hypertension) Status: Chronic Brief Hospital Course Mr. Ghosh is a 74 old [sex] who presented with [ ] Assessment Awake and alert HRR Non-labored respirations Left neck incision dry and intact, no hematoma or swelling. Trachea midline. Scrap Iron Cutter equal, ambulating in halls. Patient experienced bradycardia and hypotension POD #1, cardiology consulted, recommendation to hold Aricept and switch to Namenda. Recommend she follow up with Neurology and Primary Care prior to resuming Aricept. POD #2 patient normotensive, with regular rate. Will discharge patient to home. Discharge Medications Current Medications Morphine Sulfate (Morphine Sulfate) 1 mg PRN Q10MIN PRN IV SEVERE PAIN 7-10; Start 07/23/19 at 07:00; Stop 07/24/19 at 06:59; Status DC Ringer's Solution 1,000 ml @ 30 mls/hr Q24H IV Last administered on 07/23/19at 10:38; Start 07/23/19 at 07:00; Stop 07/23/19 at 18:59; Status DC Lidocaine HCl (Xylocaine-Mpf 1% 2ml Vial) 2 ml PRN 1X PRN ID PRIOR TO IV START; Start 07/23/19 at 07:00; Stop 07/24/19 at 06:59; Status DC Hydromorphone HCl (Dilaudid) 0.5 mg PRN Q10MIN PRN IV SEV PAIN, Second choice; Start 07/23/19 at 07:00; Stop 07/24/19 at 06:59; Status DC Prochlorperazine Edisylate (Compazine) 5 mg PACU PRN PRN IV NAUSEA, MRX1; Start 07/23/19 at 07:00; Stop 07/24/19 at 06:59; Status DC Cefazolin Sodium/ Dextrose 50 ml @ 100 mls/hr 1X PREOP PRN IV PRIOR TO PROCED URE Last administered on 07/23/19at 13:46; Start 07/23/19 at 06:00; Stop 07/23/19 at 18:00; Status DC Heparin Sodium (Porcine) 5000 unit/Ringer's Solution 505 ml @ 505 mls/hr 1X ONCE IRR Last administered on 07/23/19at 13:50; Start 07/23/19 at 06:00; Stop 07/23/19 at 06:59; Status DC Cefazolin Sodium 1 gm/Sodium Chloride 500 ml @ 500 mls/hr 1X ONCE IRR Last administered on 07/23/19at 13:50; Start 07/23/19 at 06:00; Stop 07/23/19 at 06:59; Status DC Cellulose (Surgicel Fibrillar 1x2) 1 each STK-MED ONCE .ROUTE ; Start 07/23/19 at 10:54; Stop 07/23/19 at 10:54; Status DC Lidocaine HCl (Xylocaine 1% Pf 30ml Vial) 30 ml STK-MED ONCE .ROUTE Last administered on 07/23/19at 15:00; Start 07/23/19 at 10:54; Stop 07/23/19 at 10:54; Status DC Protamine Sulfate (Protamine) 50 mg STK-MED ONCE IV ; Start 07/23/19 at 10:55; Stop 07/23/19 at 10:55; Status DC Insulin Human Lispro (HumaLOG VIAL for OP,RR ONLY) 0-10 units PRN Q1HR PRN SQ PER PROTOCOL Last administered on 07/23/19at 11:19; Start 07/23/19 at 11:00; Stop 07/24/19 at 10:59; Status DC Bupivacaine HCl (Sensorcaine-Mpf 0.25%) 10 ml STK-MED ONCE .ROUTE ; Start 07/23/19 at 12:42; Stop 07/23/19 at 12:42; Status DC Midazolam HCl (Versed) 2 mg STK-MED ONCE .ROUTE ; Start 07/23/19 at 12:42; Stop 07/23/19 at 12:43; Status DC Info (Non-Icu Electrolyte Protocol) 1 ea DAILY PRN MC PER PROTOCOL; Start 07/24/19 at 06:00; Status Cancel Info (Icu Electrolyte Protocol) 1 ea DAILY PRN MC PER PROTOCOL; Start 07/24/19 at 06:00 Labetalol HCl (Normodyne Iv Push) 10 mg PRN Q2HR PRN IVP SBP > 160, 1st CHOICE; Start 07/23/19 at 13:00 Hydralazine HCl (Apresoline Inj) 10 mg PRN Q2HRS PRN IVP SBP > 160, 2nd CHOICE; Start 07/23/19 at 13:00 Sodium Chloride (Normal Saline Flush) 3 ml QSHIFT PRN IV AFTER MEDS AND BLOOD DRAWS; Start 07/23/19 at 13:00 Sodium Chloride 1,000 ml @ 75 mls/hr [id number] IV Last administered on 07/24/19at 03:11; Start 07/23/19 at 12:57; Stop 07/24/19 at 10:17; Status DC Morphine Sulfate (Morphine Sulfate) 1 mg PRN Q1HR PRN IV PAIN; Start 07/23/19 at 13:00 Acetaminophen/ Hydrocodone Bitart (Lortab 5/325) 1 tab PRN Q4HRS PRN PO MILD PAIN 1-3 Last administered on 07/25/19at 00:27; Start 07/23/19 at 13:00 Acetaminophen/ Hydrocodone Bitart (Lortab 5/325) 2 tab PRN Q4HRS PRN PO MODERATE PAIN, SEVERE PAIN; Start 07/23/19 at 13:00 Acetaminophen (Tylenol) 650 mg Q8HRS PO Last administered on 07/24/19at 21:28; Start 07/23/19 at 14:00 Bisacodyl (Dulcolax Supp) 10 mg PRN DAILY PRN CA CONSTIPATION; Start 07/23/19 at 13:00 Ondansetron HCl (Zofran) 4 mg PRN Q6HRS PRN IV NAUESA, 1ST CHOICE; Start 07/23/19 at 13:00 Heparin Sodium (Porcine) (Heparin Sodium) 10,000 unit STK-MED ONCE .ROUTE ; Start 07/23/19 at 13:58; Stop 07/23/19 at 13:58; Status DC Nicardipine HCl (Cardene) 25 mg STK-MED ONCE IV ; Start 07/23/19 at 14:04; Stop 07/23/19 at 14:04; Status DC Aspirin (Ecotrin) 81 mg DAILY PO Last administered on 07/25/19at 09:02; Start 07/24/19 at 09:00 Atorvastatin Calcium (Lipitor) 20 mg QHS PO Last administered on 07/24/19at 21:28; Start 07/23/19 at 21:00 Donepezil HCl (Aricept) 10 mg QHS PO Last administered on 07/24/19at 21:28; Start 07/23/19 at 21:00; Stop 07/25/19 at 09:33; Status DC Lisinopril (Prinivil) 10 mg DAILY PO Last administered on 07/25/19at 09:02; Start 07/24/19 at 09:00 Non-Formulary Medication (Canagliflozin (Invokana)) 300 mg DAILY PO ; Start 07/24/19 at 09:00; Status UNV Non-Formulary Medication (Dulaglutide (Trulicity)) 0.75 mg WEEKLY SQ ; Start 08/01/19 at 09:00; Status UNV Metformin HCl (Glucophage) 1,000 mg BIDWMEALS PO Last administered on 07/25/19at 09:02; Start 07/23/19 at 17:00 Linagliptin (Tradjenta) 5 mg DAILY PO Last administered on 07/25/19at 09:02; Start 07/24/19 at 09:00 Glycopyrrolate (Robinul) 1 mg STK-MED ONCE .ROUTE ; Start 07/23/19 at 15:29; Stop 07/23/19 at 15:30; Status DC Glycopyrrolate (Robinul) 0.2 mg 1X ONCE IV Last administered on 07/23/19at 17:17; Start 07/23/19 at 17:15; Stop 07/23/19 at 17:17; Status DC Dextrose (Dextrose 50%-Water Syringe) 25 gm 1X ONCE IV Last administered on 07/23/19at 17:39; Start 07/23/19 at 17:45; Stop 07/23/19 at 17:46; Status DC Dextrose (Dextrose 50%-Water Syringe) 25 gm STK-MED ONCE IV ; Start 07/23/19 at 17:36; Stop 07/23/19 at 17:37; Status DC Dopamine HCl/ Dextrose 250 ml @ 6.872 mls/ hr CONT PRN IV SEE I/O RECORD Last administered on 07/23/19at 22:32; Start 07/23/19 at 22:00 Magnesium Sulfate 50 ml @ 25 mls/hr 1X ONCE IV Last administered on 07/24/19at 10:14; Start 07/24/19 at 10:00; Stop 07/24/19 at 11:59; Status DC Magnesium Sulfate/ Dextrose 100 ml @ 100 mls/hr 1X ONCE IV ; Start 07/24/19 at 10:15; Stop 07/24/19 at 11:14; Status UNV Active Scripts Active Reported Aricept (Donepezil Hcl) 10 Mg Tablet 1 Tab PO QHS Januvia (Sitagliptin Phosphate) 100 Mg Tablet 1 Tab PO DAILY Aspir-Low (Aspirin) 81 Mg Tablet.dr 1 Tab PO DAILY Metformin Hcl Er (Metformin Hcl) 1,000 Mg Tab.er.24 1,000 Mg PO BID Lisinopril 10 Mg Tablet 1 Tab PO DAILY Trulicity (Dulaglutide) 0.75 Mg/0.5 Ml Pen.injctr 0.75 Mg SQ WEEKLY Invokana (Canagliflozin) 300 Mg Tablet 300 Mg PO DAILY Atorvastatin Calcium 20 Mg Tablet 20 Mg PO DAILY Vital Signs Vital Signs Date Time Temp Pulse Resp B/P (MAP) Pulse Ox O2 Delivery O2 Flow Rate FiO2 07/25/19 11:50 64 18 102/56 (71) 97 Room Air 07/25/19 08:00 97.8 97.8 Labs Laboratory Tests Test 07/23/19 16:16 07/23/19 17:32 07/23/19 17:57 07/23/19 18:15 Glucose (Fingerstick) 79 mg/dL (70-99) 68 mg/dL (70-99) 56 mg/dL (70-99) 131 mg/dL (70-99) Test 07/23/19 23:20 07/24/19 07:20 07/24/19 11:41 07/24/19 16:55 Glucose (Fingerstick) 133 mg/dL (70-99) 110 mg/dL (70-99) 108 mg/dL (70-99) White Blood Count 10.9 x10^3/uL (4.0-11.0) Red Blood Count 4.30 x10^6/uL (4.30-5.70) Hemoglobin 13.6 g/dL (13.0-17.5) Hematocrit 39.8 % (39.0-53.0) Mean Corpuscular Volume 93 fL (79-100) Mean Corpuscular Hemoglobin 32 pg (25-35) Mean Corpuscular Hemoglobin Concent 34 g/dL (31-37) Red Cell Distribution Width 13.4 % (11.5-14.5) Platelet Count 160 x10^3/uL (140-400) Sodium Level 139 mmol/L (136-145) Potassium Level 4.5 mmol/L (3.5-5.1) Chloride Level 106 mmol/L (98-107) Carbon Dioxide Level 23 mmol/L (21-32) Anion Gap 10 (6-14) Blood Urea Nitrogen 24 mg/dL (8-26) Creatinine 1.3 mg/dL (0.7-1.3) Estimated GFR (Cockcroft-Gault) 53.7 Glucose Level 134 mg/dL (70-99) Calcium Level 8.8 mg/dL (8.5-10.1) Phosphorus Level 3.9 mg/dL (2.6-4.7) Magnesium Level 1.7 mg/dL (1.8-2.4) Triglycerides Level 133 mg/dL (0-150) Cholesterol Level 113 mg/dL (0-200) LDL Cholesterol, Calculated 47 mg/dL (0-100) VLDL Cholesterol, Calculated 27 mg/dL (0-40) Non-HDL Cholesterol Calculated 74 mg/dL (0-129) HDL Cholesterol 39 mg/dL (40-60) Cholesterol/HDL Ratio 2.9 Thyroid Stimulating Hormone (TSH) 0.208 uIU/mL (0.358-3.74) Test 07/25/19 08:45 Glucose (Fingerstick) 117 mg/dL (70-99) Laboratory Tests Test 07/24/19 16:55 07/25/19 08:45 Glucose (Fingerstick) 108 mg/dL (70-99) 117 mg/dL (70-99) Allergies Allergies Coded Allergies Type Severity Reaction Last Updated Verified diflorasone Adverse Reaction Intermediate Diarrhea 07/23/19 Yes Disposition/Orders: D/C to Home Patient Instructions Follow up as scheduled. May shower tomorrow. Follow up with Primary Care and Neurologist before resuming Aricept. Discussed with Dr. Montelongo, he will prescribe Namenda prior to discharge. No heavy lifting for two weeks YASMIN CLARK [employer] Jul 25, 2019 12:13
--- NOTE | 2019-07-25 13:49 | PDOC ---
[employer] PROGRESS NOTE Chief Complaint Chief Complaint SRINIVASA Dementia Post-op hypotension with bradycardia History of Present Illness History of Present Illness 07/25/19 Pt seen and examined in the ICU Pt was sitting up eating lunch with a healthy appetite Consulted pharmacy to change Aricept to Namenda. Talked with pt's intensively about the complicated dosing of Namenda. Pt will start with 5mg QD for 1 week, increasing to 5mg BID the 2nd week, then 10mg BID for 60 days total. If she has any questions or concerns I left my contact information. Also consulted the patient's pharmacy about this medication and dosing. Pt is ready to go home. DAVE RN Vitals/I&O Vitals/I&O: Vital Signs Date Time Temp Pulse Resp B/P (MAP) Pulse Ox O2 Delivery O2 Flow Rate FiO2 07/25/19 11:50 64 18 102/56 (71) 97 Room Air 07/25/19 08:00 97.8 97.8 I & O 07/24/19 07/24/19 07/25/19 15:00 23:00 07:00 Intake Total 1560 ml 360 ml 50 ml Output Total 650 ml 0 ml Balance 910 ml 360 ml 50 ml Physical Exam General: Alert, Cooperative, No acute distress Heart: Regular rate (SR), Normal S1, Normal S2, Other (2/6 systolic murmur to LLS border) Abdomen: Soft, No tenderness Extremities: No cyanosis, No edema Labs Labs: Laboratory Tests Test 07/24/19 16:55 07/25/19 08:45 Glucose (Fingerstick) 108 mg/dL (70-99) 117 mg/dL (70-99) Review of Systems Review of Systems: Denies pain Denies weakness Assessment and Plan Assessmemt and Plan Problems Medical Problems: (1) CKD (chronic kidney disease) Status: Chronic (2) DM2 (diabetes mellitus, type 2) Status: Chronic (3) HLD (hyperlipidemia) Status: Chronic (4) HTN (hypertension) Status: Chronic Assessment Carotid stenosis DM2 CKD HLD HTN Plan ICU monitoring Probable discharge Stop Aricept Prescribed Namenda DVT prophylaxis Wound FDC meds Full code Comment Review of Relevant I have reviewed the following items kuldeep (where applicable) has been applied. LUIS TEMPLE III, DO Jul 25, 2019 13:49
[2019-08-01] MEDS ORDERED: NON FORMULARY ITEM (Dulaglutide (Trulicity) 0.75 MG) SQ SCH (09:00)
== END 2019-07-25 14:00 | disposition home or self-care (01) | DRG 38 ==
LOC: OPSVCIP 09:54 → 1 WEST ICU 15:37
PROVIDERS: ADMIT Surgery; ATTEND Surgery
PROC: 03CL0ZZ Extirpation of Matter from Left Internal Carotid Artery, Open Approach (ICD-10-PCS; 2019-07-23)
PROC: 03CN0ZZ Extirpation of Matter from Left External Carotid Artery, Open Approach (ICD-10-PCS; 2019-07-23)
PROC: 03UJ0KZ Supplement Left Common Carotid Artery with Nonautologous Tissue Substitute, Open Approach (ICD-10-PCS; 2019-07-23)
PROC: 03UL0KZ Supplement Left Internal Carotid Artery with Nonautologous Tissue Substitute, Open Approach (ICD-10-PCS; 2019-07-23)
PROC: 03UN0KZ Supplement Left External Carotid Artery with Nonautologous Tissue Substitute, Open Approach (ICD-10-PCS; 2019-07-23)
PROC: 03CJ0ZZ Extirpation of Matter from Left Common Carotid Artery, Open Approach (ICD-10-PCS; principal; 2019-07-23 12:30)
DX: I65.22 Occlusion and stenosis of left carotid artery (principal); G93.40 Encephalopathy, unspecified; I12.9 Hypertensive chronic kidney disease with stage 1 through stage 4 chronic kidney disease, or unspecified chronic kidney disease; E11.22 Type 2 diabetes mellitus with diabetic chronic kidney disease; E11.649 Type 2 diabetes mellitus with hypoglycemia without coma; E78.5 Hyperlipidemia, unspecified; K57.90 Diverticulosis of intestine, part unspecified, without perforation or abscess without bleeding; F03.90 Unspecified dementia, unspecified severity, without behavioral disturbance, psychotic disturbance, mood disturbance, and anxiety; F17.210 Nicotine dependence, cigarettes, uncomplicated; N18.9 Chronic kidney disease, unspecified; Z85.51 Personal history of malignant neoplasm of bladder; M19.90 Unspecified osteoarthritis, unspecified site
CPT/HCPCS: 36415; 71046; 80048; 80061; 82962; 83735; 84100; 84443; 85025; 85027; 85610; 85730; 93005; 93306; J0690; J0696; J1265; J1644; J1815; J2250; J3475; J3490; J7030; J7040; J7042; J7120; G0378

== ENCOUNTER 2019-10-11 15:42 | Inpatient (IN) | payer OTHER, MEDICARE ==
[~2019-10-11] VITALS: Ht 185.4 cm; Wt 87.3 kg
[~2019-10-11 15:42] MED LIST changes: -HEPARIN SODIUM 5,000 UNIT in IV RINGERS,LACTATED 500ML 500 ML IRR ONE; +HYDR-2761 PO; -HYDROmorphone 2 MG/ML VIAL IV PRN; -IV RINGERS,LACTATED 1000ML 1,000 ML IV SCH; -LIDOCAINE 1% PF 2 ML VIAL. ID PRN; -MORPHINE SULFATE 2 MG/ML VIAL. IV PRN; -PROCHLORPERAZINE 10 MG/2 ML VIAL. IV PRN
[2019-10-11] MEDS ORDERED: IPRATRPIUM/ALBUTEROL 0.5/2.5MG 3 ML NEBU. NEB ONE (16:00)
[2019-10-11 16:02] LABS: BASO # 0.1 x10^3/uL (0.0-0.2); BASO % 1 % (0-3); EOS % 0 % (0-3); HEMATOCRIT 50.1 % (39.0-53.0); HEMOGLOBIN 16.5 g/dL (13.0-17.5); LYMPH # 1.3 x10^3/uL (1.0-4.8); LYMPH % 8 % (24-48); MEAN CORPUSCULAR HEMOGLOBIN 30 pg (25-35); MEAN CORPUSCULAR HGB CONC 33 g/dL (31-37); MEAN CORPUSCULAR VOLUME 92 fL (79-100); MONO # 1.3 x10^3/uL (0.0-1.1); MONO % 8 % (0-9); NEUT # 14.3 x10^3/uL (1.8-7.7); NEUT % 84 % (31-73); PLATELET COUNT 246 x10^3/uL (140-400); RED BLOOD COUNT 5.44 x10^6/uL (4.30-5.70); RED CELL DISTRIBUTION WIDTH 13.3 % (11.5-14.5)
[2019-10-11 16:14] LABS: CREATININE 1.7 mg/dL (0.7-1.3); GFR 39.4; POTASSIUM 5.1 mmol/L (3.5-5.1); PROTHROMBIN TIME PATIENT 12.4 SEC (11.7-14.0)
--- NOTE | 2019-10-11 16:14 | PHYS DOC ---
Past Medical History Past Medical History: Dementia, Diabetes-Type II Additional Past Surgical Histo: Right Shoulder. Alcohol Use: None Drug Use: None Adult General Chief Complaint Chief Complaint: SHORTNESS OF BREATH [facility] HPI Patient is a 74-year-old male who arrives via EMS from home with report of shortness of breath and some mental status change. EMS states that patient Complaining of not feeling right and giving his date of . Upon arrival, patient is answering questions appropriately. Patient denies being in any pain to include chest pain, abdominal pain, or headache. Patient does complain of shortness of breath and states that it is worse when he tries to move around. He has also had a cough. Patient is not sure whether or not he has run a fever.[] Review of Systems Review of Systems Constitutional: Denies fever or chills [] Respiratory: Positive cough and shortness of breath [] Cardiovascular: No additional information not addressed in HPI [] GI: Denies abdominal pain, nausea, vomiting or diarrhea [] Integument: Denies rash or skin lesions [] Neurologic: Denies headache. Positive mental status changes [] All other systems were reviewed and found to be within normal limits, except as documented in this note. Current Medications Current Medications Current Medications Medications (Trade) Dose Ordered Sig/Stephanie Start Time Stop Time Status Last Admin Dose Admin Albuterol/ Ipratropium (Duoneb) 3 ml 1X ONCE 10/11/19 16:00 10/11/19 16:01 DC 10/11/19 16:02 3 ML Allergies Allergies Allergies Coded Allergies Type Severity Reaction Last Updated Verified diflorasone Adverse Reaction Intermediate Diarrhea 07/23/19 Yes Physical Exam Physical Exam Constitutional: Well developed, well nourished, no acute distress, non-toxic appearance. [] HENT: Normocephalic, atraumatic, bilateral external ears normal, oropharynx m oist, no oral exudates, nose normal. [] Eyes: PERRLA, EOMI, conjunctiva normal, no discharge. [] Neck: Normal range of motion, no tenderness, supple, no stridor. [] Cardiovascular:Heart rate regular rhythm, no murmur [] Lungs & Thorax: Bilateral breath sounds clear to auscultation [] Abdomen: Bowel sounds normal, soft, no tenderness, no masses, no pulsatile masses. [] Skin: Warm, dry, no erythema, no rash. [] Extremities: No tenderness, no cyanosis, no clubbing, ROM intact. [] Neurologic: Awake and alert, no focal deficits noted. [] Current Patient Data Vital Signs Vital Signs Date Time Temp Pulse Resp B/P (MAP) Pulse Ox O2 Delivery O2 Flow Rate FiO2 10/11/19 16:03 96 Nasal Cannula 2.0 10/11/19 15:42 97.8 116 26 132/84 (100) 97.8 Lab Values Laboratory Tests Test 10/11/19 15:52 10/11/19 16:40 White Blood Count 17.0 x10^3/uL (4.0-11.0) H Red Blood Count 5.44 x10^6/uL (4.30-5.70) Hemoglobin 16.5 g/dL (13.0-17.5) Hematocrit 50.1 % (39.0-53.0) Mean Corpuscular Volume 92 fL (79-100) Mean Corpuscular Hemoglobin 30 pg (25-35) Mean Corpuscular Hemoglobin Concent 33 g/dL (31-37) Red Cell Distribution Width 13.3 % (11.5-14.5) Platelet Count 246 x10^3/uL (140-400) Neutrophils (%) (Auto) 84 % (31-73) H Lymphocytes (%) (Auto) 8 % (24-48) L Monocytes (%) (Auto) 8 % (0-9) Eosinophils (%) (Auto) 0 % (0-3) Basophils (%) (Auto) 1 % (0-3) Neutrophils # (Auto) 14.3 x10^3/uL (1.8-7.7) H Lymphocytes # (Auto) 1.3 x10^3/uL (1.0-4.8) Monocytes # (Auto) 1.3 x10^3/uL (0.0-1.1) H Eosinophils # (Auto) 0.0 x10^3/uL (0.0-0.7) Basophils # (Auto) 0.1 x10^3/uL (0.0-0.2) Platelet Estimate Pending Prothrombin Time 12.4 SEC (11.7-14.0) Prothrombin Time INR 1.0 (0.8-1.1) Sodium Level 137 mmol/L (136-145) Potassium Level 5.1 mmol/L (3.5-5.1) Chloride Level 101 mmol/L (98-107) Carbon Dioxide Level 27 mmol/L (21-32) Anion Gap 9 (6-14) Blood Urea Nitrogen 29 mg/dL (8-26) H Creatinine 1.7 mg/dL (0.7-1.3) H Estimated GFR (Cockcroft-Gault) 39.4 BUN/Creatinine Ratio 17 (6-20) Glucose Level 211 mg/dL (70-99) H Lactic Acid Level 2.3 mmol/L (0.4-2.0) H Calcium Level 10.0 mg/dL (8.5-10.1) Magnesium Level 2.3 mg/dL (1.8-2.4) Total Bilirubin 0.6 mg/dL (0.2-1.0) Aspartate Amino Transferase (AST) 20 U/L (15-37) Alanine Aminotransferase (ALT) 17 U/L (16-63) Alkaline Phosphatase 120 U/L (46-116) H Ammonia < 10 mcmol/L (11-34) L Troponin I Quantitative < 0.017 ng/mL (0.000-0.055) JS-Zpv-[id number]-Type Natriuretic Peptide 613 pg/mL (0-449) H Total Protein 9.1 g/dL (6.4-8.2) H Albumin 4.0 g/dL (3.4-5.0) Albumin/Globulin Ratio 0.8 (1.0-1.7) L Urine Collection Type Unknown Urine Color Yellow Urine Clarity Clear Urine pH 5.0 Urine Specific [place] >=1.030 Urine Protein Negative mg/dL (NEG-TRACE) Urine Glucose (UA) >=1000 mg/dL (NEG) Urine Ketones (Stick) 15 mg/dL (NEG) Urine Blood Moderate (NEG) Urine Nitrite Negative (NEG) Urine Bilirubin Negative (NEG) Urine Urobilinogen Dipstick 0.2 mg/dL (0.2 mg/dL) Urine Leukocyte Esterase Negative (NEG) Urine RBC 6-10 /HPF (0-2) Urine WBC 5-10 /HPF (0-4) Urine Bacteria 0 /HPF (0-FEW) Urine Mucus Mod /LPF Laboratory Tests 10/11/19 15:52 Laboratory Tests 12/12/19 15:52 EKG EKG EKG demonstrates sinus tachycardia with rate of 108.[] Radiology/Procedures Radiology/Procedures [] Impressions: PROCEDURE: CT HEAD WO CONTRAST Examination: CT HEAD WO CONTRAST History: Altered mental status Comparison/Correlation: 04/02/2019 CT head without contrast Findings: Axial images of the head were obtained without contrast. Atrophy is present. No intracranial hemorrhage, midline shift, or mass effect. Ventricles are unremarkable and unchanged. No evolving infarct delineated. The globes and optic nerves are unremarkable. Bony structures are unremarkable. Impression: No acute process. PQRS Compliance Statement: One or more of the following individualized dose reduction techniques were utilized for this examination: 1. Automated exposure control 2. Adjustment of the mA and/or kV according to patient size 3. Use of iterative reconstruction technique Electronically signed by: Rylan Razo MD (10/11/2019 4:58 PM) [facility] Course & Med Decision Making Course & Med Decision Making Pertinent Labs and Imaging studies reviewed. (See chart for details) [] Dragon Disclaimer Dragon Disclaimer This electronic medical record was generated, in whole or in part, using a voice recognition dictation system. Departure Departure Impression: Primary Impression: CAP (community acquired pneumonia) Additional Impressions: Acute kidney injury Dehydration Disposition: ADMITTED INPATIENT Admitting Physician: REED (Dr. Dawkins) Condition: IMPROVED Referrals: JAYLEN GIANG MD (PCP) Problem Qualifiers Primary Impression: CAP (community acquired pneumonia) Laterality: unspecified laterality Qualified Codes: J18.9 - Pneumonia, unspecified organism JERI FAJARDO Jr. DO Oct 11, 2019 16:14
[2019-10-11 16:21] LABS: ALBUMIN/GLOBULIN RATIO 0.8 (1.0-1.7); MAGNESIUM 2.3 mg/dL (1.8-2.4); TOTAL BILIRUBIN 0.6 mg/dL (0.2-1.0); TOTAL PROTEIN 9.1 g/dL (6.4-8.2)
--- NOTE | 2019-10-11 16:22 | EKG ---
[facility] [address] [place] [address] Test Date: 2019-10-11 Test Time: 16:04:01 Pat Name: BURAK GÓMEZ Department: Room: Gender: M [employer]: : 1945 Requested By: JERI FAJARDO Order Number: [id number] Reading MD: Measurements Intervals [place] Rate: 108 P: 54 TX: 164 QRS: -2 QRSD: 84 T: 29 QT: 326 QTc: 440 Interpretive Statements SINUS TACHYCARDIA LEFTWARD AXIS LOW LIMB LEAD VOLTAGE QRS(T) CONTOUR ABNORMALITY CONSISTENT WITH INFERIOR INFARCT PROBABLY OLD ABNORMAL ECG No previous ECG available for comparison
--- NOTE | 2019-10-11 16:40 | RAD ---
Indication: Altered mental status TECHNIQUE:Portable AP chest X-ray COMPARISON: 07/23/2019 FINDINGS: Heart is normal in size. Mild interstitial opacities bilaterally without focal consolidation. No pneumothorax or pleural effusion. Visualized bony thorax within normal limits. IMPRESSION: Mild interstitial opacities may be secondary to atypical/viral infection or chronic interstitial changes. Electronically signed by: Baudilio Workman DO (10/11/2019 4:37 PM) [facility]
[2019-10-11 16:49] LABS: BILIRUBIN,URINE NEGATIVE (NEG); CLARITY,URINE CLEAR; COLOR,URINE YELLOW; NITRITE,URINE NEGATIVE (NEG); PROTEIN,URINE NEGATIVE (NEG-TRACE); UROBILINOGEN,URINE 0.2 mg/dL (0.2 mg/dL)
[2019-10-11 17:01] LABS: BACTERIA,URINE 0 /HPF (0-FEW)
--- NOTE | 2019-10-11 17:01 | RAD ---
Examination: CT HEAD WO CONTRAST History: Altered mental status Comparison/Correlation: 04/02/2019 CT head without contrast Findings: Axial images of the head were obtained without contrast. Atrophy is present. No intracranial hemorrhage, midline shift, or mass effect. Ventricles are unremarkable and unchanged. No evolving infarct delineated. The globes and optic nerves are unremarkable. Bony structures are unremarkable. Impression: No acute process. PQRS Compliance Statement: One or more of the following individualized dose reduction techniques were utilized for this examination: 1. Automated exposure control 2. Adjustment of the mA and/or kV according to patient size 3. Use of iterative reconstruction technique Electronically signed by: Rylan Razo MD (10/11/2019 4:58 PM) [facility]
--- NOTE | 2019-10-11 17:04 | PDOC1 ---
History and Physical Date of Admission Date of Admission DATE: 10/11/19 TIME: 17:02 Identification/Chief Complaint Chief Complaint Shortness of breath with cough Source Source: Caregiver, Chart review, Patient History of Present Illness History of Present Illness Mr Ghosh is a 74yo M w/ PMHx Dementia, DM2, HLD, HTN brought into ED by EMS from home where he lives with his c/o shortness of breath and some mental status change. Patient denies being in any pain to include chest pain, abdominal pain, or headache. Patient does complain of shortness of breath and states that it is worse when he tries to move around, but when asked after a few minutes he asks why he is here.. He has also had a cough. Patient is not sure whether or not he has run a fever. EKG shows sinus tachycardia, 108bpm WBC 17 , tachycardic, and CXR reveals mild interstitial opacities bilaterally. He was placed on 2L NCO2 for O2 saturations below 88%, no history of low O2. Cr 1.7, BUN 29, glucose 211. Admitted for further care Past Medical History Cardiovascular: HTN, Hyperlipidemia, Other CENTRAL NERVOUS SYSTEM: Dementia GI: Diverticulosis Heme/Onc: Cancer Musculoskeletal: Osteoarthritis Renal/: Chronic renal insuff Endocrine: Diabetes Past Surgical History Past Surgical History: Other Family History Family History: Family History Unknown Social History Smoke: No ALCOHOL: none Drugs: None Current Medications Current Medications Current Medications Albuterol/ Ipratropium (Duoneb) 3 ml 1X ONCE NEB Last administered on 10/11/19at 16:02; Start 10/11/19 at 16:00; Stop 10/11/19 at 16:01; Status DC Active Scripts Active Hydrocodone-Apap 5-325 (Hydrocodone Bit/Acetaminophen) 1 Tab Tablet 1 Tab PO PRN Q4HRS PRN 7 Days Reported Januvia (Sitagliptin Phosphate) 100 Mg Tablet 1 Tab PO DAILY Aspir-Low (Aspirin) 81 Mg Tablet. 1 Tab PO DAILY Metformin Hcl Er (Metformin Hcl) 1,000 Mg Tab.er.24 1,000 Mg PO BID Lisinopril 10 Mg Tablet 1 Tab PO DAILY Trulicity (Dulaglutide) 0.75 Mg/0.5 Ml Pen.injctr 0.75 Mg SQ WEEKLY Invokana (Canagliflozin) 300 Mg Tablet 300 Mg PO DAILY Atorvastatin Calcium 20 Mg Tablet 20 Mg PO DAILY Allergies Allergies: Coded Allergies: diflorasone (Verified Adverse Reaction, Intermediate, Diarrhea, 07/23/19) ROS Review of System Difficult to obtain accurate ROS due to patient's dementia and confusion General: YES: Fatigue, Malaise PSYCHOLOGICAL ROS: YES: Behavioral Disorder, Disorientation, Hallucinations; No: Anxiety, Concentration difficultie, Decreased libido, Depression, Hostility, Irritablity, Memory difficulties, Mood Swings, Obsessive thoughts, Physical abuse, Sexual abuse, Sleep disturbances, Suicidal ideation, Other Eyes: No Blurry vision, No Decreased vision, No Double vision, No Dry eyes, No Excessive tearing, No Eye Pain, No Itchy Eyes, No Loss of vision, No Photophobia, No Scotomata, No Uses contacts, No Uses glasses, No Other HEENT: No: Heacaches, Visual Changes, Hearing change, Nasal congestion, Nasal discharge, Oral lesions, Sinus pain, Sore Throat, Epistaxis, Sneezing, Snoring, Tinnitus, Vertigo, Vocal changes, Other ALLERGY AND IMMUNOLOGY: No: Hives, Insect Bite Sensitivity, Itchy/Watery Eyes, Nasal Congestion, Post Nasal Drip, Seasonal Allergies, Other Hematological and Lymphatic: No: Bleeding Problems, Blood Clots, Blood Transfusions, Brusing, Night Sweats, Pallor, Swollen Lymph Nodes, Other ENDOCRINE: No: Breast Changes, Galactorrhea, Hair Pattern Changes, Hot Flashes, Malaise/lethargy, Mood Swings, Palpitations, Polydipsia/polyuria, Skin Changes, Temperature Intolerance, Unexpected Weight Changes, Other Breast: No New/Changing Breast Lumps, No Nipple changes, No Nipple discharge, No Other Respiratory: YES: Cough, Shortness of breath, SOB with excertion, Tachypnea, Wheezing; No: Hemoptysis, Orthopnea, Pleuritic Pain, Sputum Changes, Stridor, Other Cardiovascular: No Chest Pain, No Palpitations, No Orthopnea, No Paroxysmal Noc. Dyspnea, No Edema, No Lt Headedness, No Other Gastrointestinal: No Nausea, No Vomiting, No Abdominal Pain, No Diarrhea, No Constipation, No Melena, No Hematochezia, No Other Genitourinary: No Dysuria, No Frequency, No Incontinence, No Hematuria, No Retention, No Discharge, No Urgency, No Pain, No Flank Pain, No Other, No , No , No , No , No , No , No Musculoskeletal: No Gait Disturbance, No Joint Pain, No Joint Stiffness, No Joint Swelling, No Muscle Pain, No Muscular Weakness, No Pain In:, No Swelling In:, No Other Neurological: No Behavorial Changes, No Bowel/Bladder ControlChng, No Confusion, No Dizziness, No Gait Disturbance, No Headaches, No Impaired Coord/balance, No Memory Loss, No Numbness/Tingling, No Seizures, No Speech Problems, No Tremors, No Visual Changes, No Weakness, No Other Skin: No Dry Skin, No Eczema, No Hair Changes, No Lumps, No Mole Changes, No Mottling, No Nail Changes, No Pruritus, No Rash, No Skin Lesion Changes, No Other, No Acne Physical Exam General: Alert, Cooperative, mild distress HEENT: Atraumatic, PERRLA, EOMI, Mucous membr. moist/pink Lungs: Other (Bilateral crackles and rhonchi) Heart: S1S2, RRR, no thrills, no rubs, no gallops, no murmurs Abdomen: Normal bowel sounds, Soft, No tenderness, No hepatosplenomegaly, No masses Rectal Exam: not examined Extremities: No clubbing, No cyanosis, No edema, Normal pulses, No tenderness/swelling Skin: No rashes, No breakdown, No significant lesion Neuro: Strength at 5/5 X4 ext, Normal tone, Sensation intact, Cranial nerves 3- 12 NL, Reflexes 2+ Psych/Mental Status: Other (Confused) Vitals Vitals Vital Signs Date Time Temp Pulse Resp B/P (MAP) Pulse Ox O2 Delivery O2 Flow Rate FiO2 10/11/19 16:03 96 Nasal Cannula 2.0 Labs Labs Laboratory Tests Test 10/11/19 15:52 White Blood Count 17.0 x10^3/uL (4.0-11.0) Red Blood Count 5.44 x10^6/uL (4.30-5.70) Hemoglobin 16.5 g/dL (13.0-17.5) Hematocrit 50.1 % (39.0-53.0) Mean Corpuscular Volume 92 fL (79-100) Mean Corpuscular Hemoglobin 30 pg (25-35) Mean Corpuscular Hemoglobin Concent 33 g/dL (31-37) Red Cell Distribution Width 13.3 % (11.5-14.5) Platelet Count 246 x10^3/uL (140-400) Neutrophils (%) (Auto) 84 % (31-73) Lymphocytes (%) (Auto) 8 % (24-48) Monocytes (%) (Auto) 8 % (0-9) Eosinophils (%) (Auto) 0 % (0-3) Basophils (%) (Auto) 1 % (0-3) Neutrophils # (Auto) 14.3 x10^3/uL (1.8-7.7) Lymphocytes # (Auto) 1.3 x10^3/uL (1.0-4.8) Monocytes # (Auto) 1.3 x10^3/uL (0.0-1.1) Eosinophils # (Auto) 0.0 x10^3/uL (0.0-0.7) Basophils # (Auto) 0.1 x10^3/uL (0.0-0.2) Prothrombin Time 12.4 SEC (11.7-14.0) Prothromb Time International Ratio 1.0 (0.8-1.1) Sodium Level 137 mmol/L (136-145) Potassium Level 5.1 mmol/L (3.5-5.1) Chloride Level 101 mmol/L (98-107) Carbon Dioxide Level 27 mmol/L (21-32) Anion Gap 9 (6-14) Blood Urea Nitrogen 29 mg/dL (8-26) Creatinine 1.7 mg/dL (0.7-1.3) Estimated GFR (Cockcroft-Gault) 39.4 BUN/Creatinine Ratio 17 (6-20) Glucose Level 211 mg/dL (70-99) Lactic Acid Level 2.3 mmol/L (0.4-2.0) Calcium Level 10.0 mg/dL (8.5-10.1) Magnesium Level 2.3 mg/dL (1.8-2.4) Total Bilirubin 0.6 mg/dL (0.2-1.0) Aspartate Amino Transf (AST/SGOT) 20 U/L (15-37) Alanine Aminotransferase (ALT/SGPT) 17 U/L (16-63) Alkaline Phosphatase 120 U/L (46-116) Ammonia < 10 mcmol/L (11-34) Troponin I Quantitative < 0.017 ng/mL (0.000-0.055) RA-Sbk-L-Type Natriuretic Peptide 613 pg/mL (0-449) Total Protein 9.1 g/dL (6.4-8.2) Albumin 4.0 g/dL (3.4-5.0) Albumin/Globulin Ratio 0.8 (1.0-1.7) Laboratory Tests Test 10/11/19 15:52 White Blood Count 17.0 x10^3/uL (4.0-11.0) Red Blood Count 5.44 x10^6/uL (4.30-5.70) Hemoglobin 16.5 g/dL (13.0-17.5) Hematocrit 50.1 % (39.0-53.0) Mean Corpuscular Volume 92 fL (79-100) Mean Corpuscular Hemoglobin 30 pg (25-35) Mean Corpuscular Hemoglobin Concent 33 g/dL (31-37) Red Cell Distribution Width 13.3 % (11.5-14.5) Platelet Count 246 x10^3/uL (140-400) Neutrophils (%) (Auto) 84 % (31-73) Lymphocytes (%) (Auto) 8 % (24-48) Monocytes (%) (Auto) 8 % (0-9) Eosinophils (%) (Auto) 0 % (0-3) Basophils (%) (Auto) 1 % (0-3) Neutrophils # (Auto) 14.3 x10^3/uL (1.8-7.7) Lymphocytes # (Auto) 1.3 x10^3/uL (1.0-4.8) Monocytes # (Auto) 1.3 x10^3/uL (0.0-1.1) Eosinophils # (Auto) 0.0 x10^3/uL (0.0-0.7) Basophils # (Auto) 0.1 x10^3/uL (0.0-0.2) Prothrombin Time 12.4 SEC (11.7-14.0) Prothromb Time International Ratio 1.0 (0.8-1.1) Sodium Level 137 mmol/L (136-145) Potassium Level 5.1 mmol/L (3.5-5.1) Chloride Level 101 mmol/L (98-107) Carbon Dioxide Level 27 mmol/L (21-32) Anion Gap 9 (6-14) Blood Urea Nitrogen 29 mg/dL (8-26) Creatinine 1.7 mg/dL (0.7-1.3) Estimated GFR (Cockcroft-Gault) 39.4 BUN/Creatinine Ratio 17 (6-20) Glucose Level 211 mg/dL (70-99) Lactic Acid Level 2.3 mmol/L (0.4-2.0) Calcium Level 10.0 mg/dL (8.5-10.1) Magnesium Level 2.3 mg/dL (1.8-2.4) Total Bilirubin 0.6 mg/dL (0.2-1.0) Aspartate Amino Transf (AST/SGOT) 20 U/L (15-37) Alanine Aminotransferase (ALT/SGPT) 17 U/L (16-63) Alkaline Phosphatase 120 U/L (46-116) Ammonia < 10 mcmol/L (11-34) Troponin I Quantitative < 0.017 ng/mL (0.000-0.055) BC-Ugm-Y-Type Natriuretic Peptide 613 pg/mL (0-449) Total Protein 9.1 g/dL (6.4-8.2) Albumin 4.0 g/dL (3.4-5.0) Albumin/Globulin Ratio 0.8 (1.0-1.7) Images Images CXR - Heart is normal in size. Mild interstitial opacities bilaterally without focal consolidation. No pneumothorax or pleural effusion. Visualized bony thorax within normal limits. IMPRESSION: Mild interstitial opacities may be secondary to atypical/viral infection or chronic interstitial changes. VTE Prophylaxis Ordered VTE Prophylaxis Devices: No VTE Pharmacological Prophylaxi: Yes Assessment/Plan Assessment/Plan A/P: Acute encephalopathy - likely toxic from pneumonia, hypoxia Shortness of breath - with bilateral infiltrates, this is a multifocal, likely atypical or viral pneumonia. Negative for mycoplasma or flu, empiric rocephin + azithromycin Acute hypoxia - likely 2/2 pneumonia. will use nebs and wean as tolerated RACHEAL - likely vasomotor nephropathy, will hydrate Hematuria - with glucosuria, will culture urine and monitor Dementia - frequent redirection, light during day DM2 - hold metformin and invokana, will place on basal bolus plus insulin while inpatient and with RACHEAL HLD - cont statin HTN - cont meds FEN - ADA diet PPX - heparin TID DNR/DNI Dispo - inpatient med/surg for pneumonia GILSON MCDOWELL MD Oct 11, 2019 17:04
[2019-10-11] MEDS ORDERED: IV NORMAL SALINE 1000ML BAG 1,000 ML IV ONE (17:15)
[2019-10-11] MEDS ORDERED: AZITHROMYCIN 250 MG TABLET. PO ONE (17:15)
[2019-10-11] MEDS ORDERED: cefTRIAXone IV Push 1 GM VIAL. IVP ONE (17:15)
[2019-10-11] MEDS: IV NORMAL SALINE 1000ML BAG 1,000 ML IV SCH (17:18)
[2019-10-11 17:27] LABS: % BANDS 2 % (0-9); % LYMPHS 9 % (24-48); % MONOS 7 % (0-10); % SEGS 82 % (35-66)
[2019-10-11 17:28] LABS: PLT ESTIMATE ADEQUATE (ADEQUATE)
[2019-10-11] MEDS ORDERED: ACETAMINOPHEN 325 MG TABLET. PO PRN (17:30)
[2019-10-11] MEDS ORDERED: ONDANSETRON PF 4 MG/2 ML VIAL. IV PRN (17:30)
[2019-10-11 17:51] LABS: INFLUENZA A PATIENT NEGATIVE (NEGATIVE); INFLUENZA B PATIENT NEGATIVE (NEGATIVE)
[2019-10-11 19:27] LABS: MYCOPLASMA PATIENT NEGATIVE (NEGATIVE)
[2019-10-11 19:48] VITALS: BP 160/95
[2019-10-11] MEDS: IPRATRPIUM/ALBUTEROL 0.5/2.5MG 3 ML NEBU. NEB SCH (20:00)
[2019-10-11] MEDS: ATORVASTATIN CALCIUM 20 MG TABLET PO SCH (21:00)
[2019-10-11] MEDS ORDERED: DEXTROSE 50% 25 GM / 50ML DISP.SYRIN. IV PRN (21:30)
[2019-10-11] MEDS: INSULIN LISPRO 300 UNITS/3 ML VIAL. SQ SCH (21:35)
[2019-10-11] MEDS: HEPARIN for SUB-Q USE 5,000 UNIT/ML VIAL. SQ SCH (22:00)
[2019-10-11] MEDS: INSULIN GLARGINE SYRINGE. SQ SCH (22:00)
[2019-10-11 23:41] VITALS: BP 145/84
[2019-10-12] MEDS: IV NORMAL SALINE 1000ML BAG 1,000 ML IV SCH (01:18)
[2019-10-12 03:13] VITALS: BP 144/85
[2019-10-12] MEDS: MORPHINE SULFATE 2 MG/ML VIAL. IV PRN ×2 (03:13→08:55)
[2019-10-12] MEDS: HEPARIN for SUB-Q USE 5,000 UNIT/ML VIAL. SQ SCH ×3 (06:28→22:00)
[2019-10-12 07:00] VITALS: BP 131/83
[2019-10-12] MEDS: IPRATRPIUM/ALBUTEROL 0.5/2.5MG 3 ML NEBU. NEB SCH ×3 (07:26→15:36)
[2019-10-12] MEDS: INSULIN LISPRO 300 UNITS/3 ML VIAL. SQ SCH ×4 (07:30→22:35)
--- NOTE | 2019-10-12 08:15 | NUR ---
Patient flagged positive on the sepsis screen r/t pnu diagnosis and elevated WBC and tachycardia. No other symptoms. VSS. Emely RN in ICU contacted. After reviewing the chart together we decided to continue monitoring him with no changes to current POC.
[2019-10-12] MEDS: ASPIRIN ENTERIC COATED 81 MG TABLET.DR. PO SCH (08:23)
--- NOTE | 2019-10-12 09:05 | PDOC ---
PROGRESS NOTES Chief Complaint Chief Complaint A/P: Acute encephalopathy - likely toxic from pneumonia, hypoxia Shortness of breath - with bilateral infiltrates, this is a multifocal, likely atypical or viral pneumonia. Negative for mycoplasma or flu, empiric rocephin + azithromycin + renal dosed tamiflu Acute hypoxia - likely 2/2 pneumonia. will use nebs and wean as tolerated RACHEAL - likely vasomotor nephropathy, will hydrate Hematuria - with glucosuria, will culture urine and monitor Dementia - frequent redirection, light during day DM2 - hold metformin and invokana, will place on basal bolus plus insulin while inpatient and with RACHEAL HLD - cont statin HTN - cont meds FEN - ADA diet PPX - heparin TID DNR/DNI Dispo - inpatient med/surg for pneumonia History of Present Illness History of Present Illness Mr Ghosh is a 74yo M w/ PMHx Dementia, DM2, HLD, HTN brought into ED by EMS from home where he lives with his c/o shortness of breath and some mental status change. Patient denies being in any pain to include chest pain, abdominal pain, or headache. Patient does complain of shortness of breath and states that it is worse when he tries to move around, but when asked after a few minutes he asks why he is here.. He has also had a cough. Patient is not sure whether or not he has run a fever. EKG shows sinus tachycardia, 108bpm WBC 17 , tachycardic, and CXR reveals mild interstitial opacities bilaterally. He was placed on 2L NCO2 for O2 saturations below 88%, no history of low O2. Cr 1.7, BUN 29, glucose 211. He is not feeling much better, states he is in a lot of generalized pain. His informs me this is his way of communicating constipation. He is still hypoxic on O2, tachycardic. Cr improved to 1.3. Awaiting ZOO DIRECTOR evaluation. Vitals Vitals Vital Signs Date Time Temp Pulse Resp B/P (MAP) Pulse Ox O2 Delivery O2 Flow Rate FiO2 10/12/19 08:55 93 Nasal Cannula 3.0 10/12/19 07:00 97.7 91 18 131/83 (99) 97.7 Physical Exam General: Alert, Cooperative, mild distress Abdomen: Normal bowel sounds, Soft, No tenderness, No hepatosplenomegaly, No masses Extremities: No clubbing, No cyanosis, No edema, Normal pulses, No tenderness/swelling Skin: No rashes, No breakdown, No significant lesion Labs LABS Laboratory Tests Test 10/11/19 15:52 10/11/19 16:40 10/11/19 17:20 10/11/19 19:45 White Blood Count 17.0 x10^3/uL (4.0-11.0) Red Blood Count 5.44 x10^6/uL (4.30-5.70) Hemoglobin 16.5 g/dL (13.0-17.5) Hematocrit 50.1 % (39.0-53.0) Mean Corpuscular Volume 92 fL (79-100) Mean Corpuscular Hemoglobin 30 pg (25-35) Mean Corpuscular Hemoglobin Concent 33 g/dL (31-37) Red Cell Distribution Width 13.3 % (11.5-14.5) Platelet Count 246 x10^3/uL (140-400) Neutrophils (%) (Auto) 84 % (31-73) Lymphocytes (%) (Auto) 8 % (24-48) Monocytes (%) (Auto) 8 % (0-9) Eosinophils (%) (Auto) 0 % (0-3) Basophils (%) (Auto) 1 % (0-3) Neutrophils # (Auto) 14.3 x10^3/uL (1.8-7.7) Lymphocytes # (Auto) 1.3 x10^3/uL (1.0-4.8) Monocytes # (Auto) 1.3 x10^3/uL (0.0-1.1) Eosinophils # (Auto) 0.0 x10^3/uL (0.0-0.7) Basophils # (Auto) 0.1 x10^3/uL (0.0-0.2) Segmented Neutrophils % 82 % (35-66) Band Neutrophils % 2 % (0-9) Lymphocytes % 9 % (24-48) Monocytes % 7 % (0-10) Platelet Estimate Adequate (ADEQUATE) Large Platelets Few Prothrombin Time 12.4 SEC (11.7-14.0) Prothromb Time International Ratio 1.0 (0.8-1.1) Sodium Level 137 mmol/L (136-145) Potassium Level 5.1 mmol/L (3.5-5.1) Chloride Level 101 mmol/L (98-107) Carbon Dioxide Level 27 mmol/L (21-32) Anion Gap 9 (6-14) Blood Urea Nitrogen 29 mg/dL (8-26) Creatinine 1.7 mg/dL (0.7-1.3) Estimated GFR (Cockcroft-Gault) 39.4 BUN/Creatinine Ratio 17 (6-20) Glucose Level 211 mg/dL (70-99) Lactic Acid Level 2.3 mmol/L (0.4-2.0) Calcium Level 10.0 mg/dL (8.5-10.1) Magnesium Level 2.3 mg/dL (1.8-2.4) Total Bilirubin 0.6 mg/dL (0.2-1.0) Aspartate Amino Transf (AST/SGOT) 20 U/L (15-37) Alanine Aminotransferase (ALT/SGPT) 17 U/L (16-63) Alkaline Phosphatase 120 U/L (46-116) Ammonia < 10 mcmol/L (11-34) Troponin I Quantitative < 0.017 ng/mL (0.000-0.055) NH-Dsn-[id number]-Type Natriuretic Peptide 613 pg/mL (0-449) Total Protein 9.1 g/dL (6.4-8.2) Albumin 4.0 g/dL (3.4-5.0) Albumin/Globulin Ratio 0.8 (1.0-1.7) Mycoplasma Serology (LAB) Negative (NEGATIVE) Urine Collection Type Unknown Urine Color Yellow Urine Clarity Clear Urine pH 5.0 Urine Specific [place]ay >=1.030 Urine Protein Negative mg/dL (NEG-TRACE) Urine Glucose (UA) >=1000 mg/dL (NEG) Urine Ketones (Stick) 15 mg/dL (NEG) Urine Blood Moderate (NEG) Urine Nitrite Negative (NEG) Urine Bilirubin Negative (NEG) Urine Urobilinogen Dipstick 0.2 mg/dL (0.2 mg/dL) Urine Leukocyte Esterase Negative (NEG) Urine RBC 6-10 /HPF (0-2) Urine WBC 5-10 /HPF (0-4) Urine Bacteria 0 /HPF (0-FEW) Urine Mucus Mod /LPF Influenza Type A Antigen Negative (NEGATIVE) Influenza Type B Antigen Negative (NEGATIVE) Glucose (Fingerstick) 141 mg/dL (70-99) Test 10/11/19 22:10 10/12/19 07:22 Lactic Acid Level 1.4 mmol/L (0.4-2.0) Glucose (Fingerstick) 153 mg/dL (70-99) Assessment and Plan Assessmemt and Plan Problems Medical Problems: (1) Acute kidney injury Status: Acute (2) CAP (community acquired pneumonia) Status: Acute (3) Dehydration Status: Acute Comment Review of Relevant I have reviewed the following items kuldeep (where applicable) has been applied. Labs Laboratory Tests Test 10/11/19 15:52 10/11/19 16:40 10/11/19 17:20 10/11/19 19:45 White Blood Count 17.0 x10^3/uL (4.0-11.0) Red Blood Count 5.44 x10^6/uL (4.30-5.70) Hemoglobin 16.5 g/dL (13.0-17.5) Hematocrit 50.1 % (39.0-53.0) Mean Corpuscular Volume 92 fL (79-100) Mean Corpuscular Hemoglobin 30 pg (25-35) Mean Corpuscular Hemoglobin Concent 33 g/dL (31-37) Red Cell Distribution Width 13.3 % (11.5-14.5) Platelet Count 246 x10^3/uL (140-400) Neutrophils (%) (Auto) 84 % (31-73) Lymphocytes (%) (Auto) 8 % (24-48) Monocytes (%) (Auto) 8 % (0-9) Eosinophils (%) (Auto) 0 % (0-3) Basophils (%) (Auto) 1 % (0-3) Neutrophils # (Auto) 14.3 x10^3/uL (1.8-7.7) Lymphocytes # (Auto) 1.3 x10^3/uL (1.0-4.8) Monocytes # (Auto) 1.3 x10^3/uL (0.0-1.1) Eosinophils # (Auto) 0.0 x10^3/uL (0.0-0.7) Basophils # (Auto) 0.1 x10^3/uL (0.0-0.2) Segmented Neutrophils % 82 % (35-66) Band Neutrophils % 2 % (0-9) Lymphocytes % 9 % (24-48) Monocytes % 7 % (0-10) Platelet Estimate Adequate (ADEQUATE) Large Platelets Few Prothrombin Time 12.4 SEC (11.7-14.0) Prothromb Time International Ratio 1.0 (0.8-1.1) Sodium Level 137 mmol/L (136-145) Potassium Level 5.1 mmol/L (3.5-5.1) Chloride Level 101 mmol/L (98-107) Carbon Dioxide Level 27 mmol/L (21-32) Anion Gap 9 (6-14) Blood Urea Nitrogen 29 mg/dL (8-26) Creatinine 1.7 mg/dL (0.7-1.3) Estimated GFR (Cockcroft-Gault) 39.4 BUN/Creatinine Ratio 17 (6-20) Glucose Level 211 mg/dL (70-99) Lactic Acid Level 2.3 mmol/L (0.4-2.0) Calcium Level 10.0 mg/dL (8.5-10.1) Magnesium Level 2.3 mg/dL (1.8-2.4) Total Bilirubin 0.6 mg/dL (0.2-1.0) Aspartate Amino Transf (AST/SGOT) 20 U/L (15-37) Alanine Aminotransferase (ALT/SGPT) 17 U/L (16-63) Alkaline Phosphatase 120 U/L (46-116) Ammonia < 10 mcmol/L (11-34) Troponin I Quantitative < 0.017 ng/mL (0.000-0.055) BY-Vhm-B-Type Natriuretic Peptide 613 pg/mL (0-449) Total Protein 9.1 g/dL (6.4-8.2) Albumin 4.0 g/dL (3.4-5.0) Albumin/Globulin Ratio 0.8 (1.0-1.7) Mycoplasma Serology (LAB) Negative (NEGATIVE) Urine Collection Type Unknown Urine Color Yellow Urine Clarity Clear Urine pH 5.0 Urine Specific [place] >=1.030 Urine Protein Negative mg/dL (NEG-TRACE) Urine Glucose (UA) >=1000 mg/dL (NEG) Urine Ketones (Stick) 15 mg/dL (NEG) Urine Blood Moderate (NEG) Urine Nitrite Negative (NEG) Urine Bilirubin Negative (NEG) Urine Urobilinogen Dipstick 0.2 mg/dL (0.2 mg/dL) Urine Leukocyte Esterase Negative (NEG) Urine RBC 6-10 /HPF (0-2) Urine WBC 5-10 /HPF (0-4) Urine Bacteria 0 /HPF (0-FEW) Urine Mucus Mod /LPF Influenza Type A Antigen Negative (NEGATIVE) Influenza Type B Antigen Negative (NEGATIVE) Glucose (Fingerstick) 141 mg/dL (70-99) Test 10/11/19 22:10 10/12/19 07:22 Lactic Acid Level 1.4 mmol/L (0.4-2.0) Glucose (Fingerstick) 153 mg/dL (70-99) Laboratory Tests Test 10/11/19 15:52 10/11/19 16:40 10/11/19 17:20 10/11/19 19:45 White Blood Count 17.0 x10^3/uL (4.0-11.0) Red Blood Count 5.44 x10^6/uL (4.30-5.70) Hemoglobin 16.5 g/dL (13.0-17.5) Hematocrit 50.1 % (39.0-53.0) Mean Corpuscular Volume 92 fL (79-100) Mean Corpuscular Hemoglobin 30 pg (25-35) Mean Corpuscular Hemoglobin Concent 33 g/dL (31-37) Red Cell Distribution Width 13.3 % (11.5-14.5) Platelet Count 246 x10^3/uL (140-400) Neutrophils (%) (Auto) 84 % (31-73) Lymphocytes (%) (Auto) 8 % (24-48) Monocytes (%) (Auto) 8 % (0-9) Eosinophils (%) (Auto) 0 % (0-3) Basophils (%) (Auto) 1 % (0-3) Neutrophils # (Auto) 14.3 x10^3/uL (1.8-7.7) Lymphocytes # (Auto) 1.3 x10^3/uL (1.0-4.8) Monocytes # (Auto) 1.3 x10^3/uL (0.0-1.1) Eosinophils # (Auto) 0.0 x10^3/uL (0.0-0.7) Basophils # (Auto) 0.1 x10^3/uL (0.0-0.2) Segmented Neutrophils % 82 % (35-66) Band Neutrophils % 2 % (0-9) Lymphocytes % 9 % (24-48) Monocytes % 7 % (0-10) Platelet Estimate Adequate (ADEQUATE) Large Platelets Few Prothrombin Time 12.4 SEC (11.7-14.0) Prothromb Time International Ratio 1.0 (0.8-1.1) Sodium Level 137 mmol/L (136-145) Potassium Level 5.1 mmol/L (3.5-5.1) Chloride Level 101 mmol/L (98-107) Carbon Dioxide Level 27 mmol/L (21-32) Anion Gap 9 (6-14) Blood Urea Nitrogen 29 mg/dL (8-26) Creatinine 1.7 mg/dL (0.7-1.3) Estimated GFR (Cockcroft-Gault) 39.4 BUN/Creatinine Ratio 17 (6-20) Glucose Level 211 mg/dL (70-99) Lactic Acid Level 2.3 mmol/L (0.4-2.0) Calcium Level 10.0 mg/dL (8.5-10.1) Magnesium Level 2.3 mg/dL (1.8-2.4) Total Bilirubin 0.6 mg/dL (0.2-1.0) Aspartate Amino Transf (AST/SGOT) 20 U/L (15-37) Alanine Aminotransferase (ALT/SGPT) 17 U/L (16-63) Alkaline Phosphatase 120 U/L (46-116) Ammonia < 10 mcmol/L (11-34) Troponin I Quantitative < 0.017 ng/mL (0.000-0.055) MF-Kze-W-Type Natriuretic Peptide 613 pg/mL (0-449) Total Protein 9.1 g/dL (6.4-8.2) Albumin 4.0 g/dL (3.4-5.0) Albumin/Globulin Ratio 0.8 (1.0-1.7) Mycoplasma Serology (LAB) Negative (NEGATIVE) Urine Collection Type Unknown Urine Color Yellow Urine Clarity Clear Urine pH 5.0 Urine Specific [place]ay >=1.030 Urine Protein Negative mg/dL (NEG-TRACE) Urine Glucose (UA) >=1000 mg/dL (NEG) Urine Ketones (Stick) 15 mg/dL (NEG) Urine Blood Moderate (NEG) Urine Nitrite Negative (NEG) Urine Bilirubin Negative (NEG) Urine Urobilinogen Dipstick 0.2 mg/dL (0.2 mg/dL) Urine Leukocyte Esterase Negative (NEG) Urine RBC 6-10 /HPF (0-2) Urine WBC 5-10 /HPF (0-4) Urine Bacteria 0 /HPF (0-FEW) Urine Mucus Mod /LPF Influenza Type A Antigen Negative (NEGATIVE) Influenza Type B Antigen Negative (NEGATIVE) Glucose (Fingerstick) 141 mg/dL (70-99) Test 10/11/19 22:10 10/12/19 07:22 Lactic Acid Level 1.4 mmol/L (0.4-2.0) Glucose (Fingerstick) 153 mg/dL (70-99) Medications Current Medications Albuterol/ Ipratropium (Duoneb) 3 ml 1X ONCE NEB Last administered on 10/11/19at 16:02; Start 10/11/19 at 16:00; Stop 10/11/19 at 16:01; Status DC Sodium Chloride 1,000 ml @ 1,000 mls/hr 1X ONCE IV Last administered on 10/11/19at 17:24; Start 10/11/19 at 17:15; Stop 10/11/19 at 18:14; Status DC Ceftriaxone Sodium (Rocephin) 1 gm 1X ONCE IVP Last administered on 10/11/19at 17:24; Start 10/11/19 at 17:15; Stop 10/11/19 at 17:18; Status DC Azithromycin (Zithromax) 500 mg 1X ONCE PO Last administered on 10/11/19at 17:24; Start 10/11/19 at 17:15; Stop 10/11/19 at 17:18; Status DC Ondansetron HCl (Zofran) 4 mg PRN Q8HRS PRN IV NAUSEA/VOMITING; Start 10/11/19 at 17:30; Stop 10/12/19 at 17:29 Morphine Sulfate (Morphine Sulfate) 2 mg PRN Q2HR PRN IV PAIN Last administered on 10/12/19at 08:55; Start 10/11/19 at 17:30; Stop 10/12/19 at 17:29 Sodium Chloride 1,000 ml @ 125 mls/hr Q8H IV ; Start 10/11/19 at 17:18; Stop 10/12/19 at 17:17 Acetaminophen (Tylenol) 650 mg PRN Q4HRS PRN PO FEVER Last administered on 10/12/19at 08:23; Start 10/11/19 at 17:30; Stop 10/12/19 at 17:29 Albuterol/ Ipratropium (Duoneb) 3 ml RTQID NEB Last administered on 10/12/19at 07:26; Start 10/11/19 at 20:00; Stop 10/12/19 at 19:59 Aspirin (Ecotrin) 81 mg DAILY PO Last administered on 10/12/19at 08:23; Start 10/12/19 at 09:00 Atorvastatin Calcium (Lipitor) 20 mg QHS PO Last administered on 10/11/19at 21:00; Start 10/11/19 at 21:00 Heparin Sodium (Porcine) (Heparin Sodium) 5,000 unit Q8HRS SQ Last administered on 10/12/19at 06:28; Start 10/11/19 at 22:00 Ceftriaxone Sodium (Rocephin) 1 gm Q24H IVP ; Start 10/12/19 at 11:30 Azithromycin 500 mg/Sodium Chloride 250 ml @ 250 mls/hr Q24H IV ; Start 10/12/19 at 10:30 Insulin Glargine (Lantus Syringe) 5 unit QHS SQ ; Start 10/11/19 at 22:00 Insulin Human Lispro (HumaLOG) 0-5 UNITS TIDACHC SQ ; Start 10/11/19 at 22:00 Dextrose (Dextrose 50%-Water Syringe) 12.5 gm PRN Q15MIN PRN IV SEE COMMENTS; Start 10/11/19 at 21:30 Active Scripts Active Hydrocodone-Apap 5-325 (Hydrocodone Bit/Acetaminophen) 1 Tab Tablet 1 Tab PO PRN Q4HRS PRN 7 Days Reported Januvia (Sitagliptin Phosphate) 100 Mg Tablet 1 Tab PO DAILY Aspir-Low (Aspirin) 81 Mg Tablet. 1 Tab PO DAILY Metformin Hcl Er (Metformin Hcl) 1,000 Mg Tab.er.24 1,000 Mg PO BID Lisinopril 10 Mg Tablet 1 Tab PO DAILY Trulicity (Dulaglutide) 0.75 Mg/0.5 Ml Pen.injctr 0.75 Mg SQ WEEKLY Invokana (Canagliflozin) 300 Mg Tablet 300 Mg PO DAILY Atorvastatin Calcium 20 Mg Tablet 20 Mg PO DAILY Vitals/I & O Vital Sign - Last 24 Hours 10/11/19 10/11/19 10/11/19 10/11/19 15:42 16:03 16:21 17:18 Temp 97.8 97.8 Pulse 116 110 104 Resp 26 B/P (MAP) 132/84 (100) 137/87 (104) 131/81 (98) Pulse Ox 94 96 96 96 O2 Delivery Room Air Nasal Cannula Nasal Cannula Nasal Cannula O2 Flow Rate 2.0 2.0 2.0 10/11/19 10/11/19 10/11/19 10/11/19 17:48 18:18 18:48 19:48 Temp 97.7 97.7 Pulse 102 98 94 91 Resp 21 21 20 B/P (MAP) 137/76 (96) 142/80 (100) 141/80 (100) 160/95 (116) Pulse Ox 97 97 96 98 O2 Delivery Nasal Cannula Nasal Cannula Nasal Cannula Nasal Cannula O2 Flow Rate 2.0 2.0 2.0 2.0 10/11/19 10/11/19 10/11/19 10/12/19 19:57 20:00 23:41 03:13 Temp 97.7 97.7 Pulse 94 Resp 18 B/P (MAP) 145/84 (104) Pulse Ox 94 97 O2 Delivery Nasal Cannula Nasal Cannula Nasal Cannula Nasal Cannula O2 Flow Rate 1.0 1.0 1.0 3.0 10/12/19 10/12/19 10/12/19 10/12/19 03:13 03:43 07:00 07:21 Temp 97.9 97.7 97.9 97.7 Pulse 94 91 Resp 18 18 B/P (MAP) 144/85 (104) 131/83 (99) Pulse Ox 96 96 93 O2 Delivery Nasal Cannula Nasal Cannula Nasal Cannula Nasal Cannula O2 Flow Rate 3.0 3.0 2.0 3.0 10/12/19 10/12/19 07:26 08:55 Pulse Ox 93 93 O2 Delivery Nasal Cannula Nasal Cannula O2 Flow Rate 3.0 3.0 Intake and Output 10/11/19 10/11/19 10/12/19 15:00 23:00 07:00 Intake Total 1100 ml 500 ml Balance 1100 ml 500 ml GILSON MCDOWELL MD Oct 12, 2019 09:05
[2019-10-12 10:55] LABS: CALCIUM 9.3 mg/dL (8.5-10.1); CREATININE 1.3 mg/dL (0.7-1.3); GFR 53.7; POTASSIUM 4.4 mmol/L (3.5-5.1)
[2019-10-12 11:00] VITALS: BP 119/74
[2019-10-12 11:04] LABS: BASO # 0.1 x10^3/uL (0.0-0.2); BASO % 1 % (0-3); EOS # 0.1 x10^3/uL (0.0-0.7); EOS % 0 % (0-3); HEMATOCRIT 46.9 % (39.0-53.0); HEMOGLOBIN 15.2 g/dL (13.0-17.5); LYMPH # 1.8 x10^3/uL (1.0-4.8); LYMPH % 14 % (24-48); MEAN CORPUSCULAR HEMOGLOBIN 30 pg (25-35); MEAN CORPUSCULAR HGB CONC 33 g/dL (31-37); MEAN CORPUSCULAR VOLUME 93 fL (79-100); MONO # 1.1 x10^3/uL (0.0-1.1); MONO % 9 % (0-9); NEUT # 9.6 x10^3/uL (1.8-7.7); NEUT % 76 % (31-73); PLATELET COUNT 217 x10^3/uL (140-400); RED BLOOD COUNT 5.04 x10^6/uL (4.30-5.70); RED CELL DISTRIBUTION WIDTH 13.7 % (11.5-14.5); WHITE BLOOD COUNT 12.6 x10^3/uL (4.0-11.0)
--- NOTE | 2019-10-12 11:27 | NUR ---
SS following for discharge planning. SS reviewed pt chart. Pt is from home with spouse and is currently requiring oxygen. SS will continue to follow for discharge planning.
[2019-10-12] MEDS: OSELTAMIVIR 30 MG CAPSULE PO SCH (12:01)
[2019-10-12] MEDS: DOCUSATE SODIUM 100 MG CAPSULE. PO SCH ×2 (12:04→22:23)
[2019-10-12] MEDS: PSYLLIUM HUSK (SUGAR FREE) 1 PKT PACKET PO SCH (12:05)
[2019-10-12] MEDS: cefTRIAXone IV Push 1 GM VIAL. IVP SCH (12:05)
[2019-10-12] MEDS: POLYETHYLENE GLYCOL 3350 17 GM PACKET. PO SCH (12:05)
[2019-10-12] MEDS: AZITHROMYCIN 500 MG in IV NORMAL SALINE 250ML 250 ML IV SCH (12:06)
[2019-10-12 15:00] VITALS: BP 125/76
--- NOTE | 2019-10-12 17:58 | NUR ---
Pt transferred from [facility] to room 548. Belonging in closet. Oriented to unit routines. Report received from HERI Burgos.
[2019-10-12 19:00] VITALS: BP 127/72
[2019-10-12 21:13] LABS: BASE EXCESS ABG -2 mmol/L (-3-3); FIO2 ABG 28; HCO3 ABG 21 mmol/L (21-28); PCO2 ABG 32 mmHg (35-46); PO2 ABG 77 mmHg (65-108); SAT O2 ABG 95 % (92-99)
--- NOTE | 2019-10-12 22:13 | RAD ---
Indication: Abnormal lung sounds. TECHNIQUE:Portable AP chest X-ray COMPARISON: 10/11/2019 FINDINGS: Heart is normal in size. Mild diffuse interstitial opacities not significant change from previous exam. No pneumothorax or effusion. Visualized bony thorax within normal limits. IMPRESSION: Stable mild interstitial opacities bilaterally may secondary to atypical/viral infection or interstitial pulmonary edema. No significant change from previous exam. Electronically signed by: Baudilio Workman DO (10/12/2019 10:11 PM) [facility]
[2019-10-12] MEDS: LACTOBACILLUS RHAMNOSUS GG 1 CAPSULE. PO SCH (22:23)
[2019-10-12] MEDS: ATORVASTATIN CALCIUM 20 MG TABLET PO SCH (22:23)
[2019-10-12] MEDS: INSULIN GLARGINE SYRINGE. SQ SCH (22:35)
[2019-10-12 23:00] VITALS: BP 135/84
[2019-10-13] VITALS (7 sets, daily range): BP systolic 100–153; BP diastolic 64–91
[2019-10-13] MEDS: HEPARIN for SUB-Q USE 5,000 UNIT/ML VIAL. SQ SCH ×3 (05:54→21:42)
[2019-10-13] MEDS: HYDROcodone/APAP 5/325MG 1 TAB TABLET PO PRN ×2 (07:19→14:27)
--- NOTE | 2019-10-13 08:41 | PDOC ---
Provider Note Provider Note [id number] acute resp fail acute bronchitis vs pneumonia acute bronchospasm ab ics BD JAMES MILAN MD Oct 13, 2019 08:41
[2019-10-13] MEDS ORDERED: IPRATRPIUM/ALBUTEROL 0.5/2.5MG 3 ML NEBU. NEB ONE (08:45)
[2019-10-13] MEDS ORDERED: BUDESONIDE 0.5 MG/2 ML NEBU. NEB ONE (08:45)
[2019-10-13] MEDS: POLYETHYLENE GLYCOL 3350 17 GM PACKET. PO SCH (09:05)
[2019-10-13] MEDS: ASPIRIN ENTERIC COATED 81 MG TABLET.DR. PO SCH (09:05)
[2019-10-13] MEDS: PSYLLIUM HUSK (SUGAR FREE) 1 PKT PACKET PO SCH (09:05)
[2019-10-13] MEDS: LACTOBACILLUS RHAMNOSUS GG 1 CAPSULE. PO SCH ×2 (09:06→21:37)
[2019-10-13] MEDS: DOCUSATE SODIUM 100 MG CAPSULE. PO SCH ×2 (09:06→21:37)
[2019-10-13] MEDS: OSELTAMIVIR 30 MG CAPSULE PO SCH (09:06)
[2019-10-13] MEDS: INSULIN LISPRO 300 UNITS/3 ML VIAL. SQ SCH ×4 (09:09→21:00)
--- NOTE | 2019-10-13 09:24 | CONS ---
DATE OF CONSULTATION: I was asked to see this 74-year-old gentleman for acute respiratory failure. HISTORY OF PRESENT ILLNESS: He is somewhat confused, answers to most of my questions, but some of them appears reasonable, some of them are not. He was brought to the Emergency Room via [facility]. He states that he smokes, he is not able to give me details. He has had increased shortness of breath and altered mental status. PAST MEDICAL HISTORY: Hypertension, hyperlipidemia and dementia. ALLERGIES: DIFLORASONE. MEDICATIONS: Currently, he is on Rocephin, azithromycin, Tamiflu, insulin, aspirin. SOCIAL HISTORY: He states that he smokes, details are not known. FAMILY HISTORY: Hypertension per chart. REVIEW OF SYSTEMS: As mentioned as above, other systems otherwise negative. PHYSICAL EXAMINATION: GENERAL: This is an elderly gentleman. VITAL SIGNS: His O2 saturation on 2 liters of oxygen is 95%, respiratory rate 22, heart rate 92, blood pressure 143/84, temperature 98. HEENT: Normocephalic, atraumatic. Pupils equal, round, reactive to light. Nose: There is inflamed mucosa. NECK: There is no JVD, lymphadenopathy or thyromegaly. CARDIOVASCULAR: Regular rate and rhythm. PMI is nondisplaced. CHEST: Inspection is normal. LUNGS: Few end expiratory wheezing, bilateral rhonchi. Percussion is within normal limit. ABDOMEN: Soft. Bowel sounds are good. There is no mass. EXTREMITIES: There is no edema. LYMPHATICS: There is no lymphadenopathy. NEUROLOGIC: Confused. SKIN: Warm. LABORATORY DATA: I reviewed the following lab data: Chest x-ray shows increased interstitial marking. Influenza A and B and mycoplasma serology negative. Sodium 139, potassium 4.4, chloride 103, CO2 of 23, glucose 150, BUN 26, creatinine 1.3. Lactic acid 2.3, repeat 1.4. Troponin less than 0.01. BNP 613. WBC 17, hemoglobin 16.5, platelets 246. IMPRESSION: 1. Acute respiratory failure secondary to acute bronchitis, acute bronchospasm, cannot rule out pneumonia. 2. Abnormal chest x-ray. 3. Acute bronchospasm. 4. Acute bronchitis. 5. Leukocytosis. 6. Chronic kidney disease. 7. Hypertension. 8. Diabetes mellitus. PLAN AND RECOMMENDATIONS: 1. Titrate FiO2 to keep O2 saturation 92%. 2. Continue antibiotic. 3. Add inhaled corticosteroid. 4. Add bronchodilator. 5. Monitor respiratory status very closely. 6. We will do CT of the chest to evaluate for infiltrate. Thank you very much for allowing me to participate in care of this very nice gentleman. JAMES MILAN M.D. DR: GUILLE/norman JOB#: [id number] / [id number]
--- NOTE | 2019-10-13 09:25 | NUR ---
Critical value was called to HERI Bello at 0830. Sticky note left on this RN's desk. This RN saw note at [address] Engel.
[2019-10-13] MEDS: AZITHROMYCIN 500 MG in IV NORMAL SALINE 250ML 250 ML IV SCH (09:54)
[2019-10-13] MEDS: IPRATRPIUM/ALBUTEROL 0.5/2.5MG 3 ML NEBU. NEB SCH ×3 (10:53→19:06)
--- NOTE | 2019-10-13 11:09 | PDOC ---
PROGRESS NOTES Chief Complaint Chief Complaint A/P: Acute encephalopathy - likely toxic from pneumonia, hypoxia Shortness of breath - with bilateral infiltrates, this is a multifocal, likely atypical or viral pneumonia. Negative for mycoplasma or flu, empiric rocephin + azithromycin + renal dosed tamiflu Acute hypoxia - likely 2/2 pneumonia. will use nebs and wean as tolerated RACHEAL - likely vasomotor nephropathy, will hydrate Hematuria - with glucosuria, will culture urine and monitor Dementia - frequent redirection, light during day DM2 - hold metformin and invokana, will place on basal bolus plus insulin while inpatient and with RACHEAL HLD - cont statin HTN - cont meds FEN - ADA diet PPX - heparin TID DNR/DNI Dispo - inpatient med/surg for pneumonia History of Present Illness History of Present Illness weakness, RT recommended adding flutter valve treatment add PT and OT very weak DNR no family in room this AM Mr Ghosh is a 74yo M w/ PMHx Dementia, DM2, HLD, HTN brought into ED by EMS from home where he lives with his c/o shortness of breath and some mental status change. Patient denies being in any pain to include chest pain, abdominal pain, or headache. Patient does complain of shortness of breath and states that it is worse when he tries to move around, but when asked after a few minutes he asks why he is here.. He has also had a cough. Patient is not sure whether or not he has run a fever. EKG shows sinus tachycardia, 108bpm WBC 17 , tachycardic, and CXR reveals mild interstitial opacities bilaterally. He was placed on 2L NCO2 for O2 saturations below 88%, no history of low O2. Cr 1.7, BUN 29, glucose 211. Vitals Vitals Vital Signs Date Time Temp Pulse Resp B/P (MAP) Pulse Ox O2 Delivery O2 Flow Rate FiO2 10/13/19 10:54 93 Nasal Cannula 2.0 10/13/19 07:59 97.7 89 24 138/82 (100) 97.7 Physical Exam General: Alert, Cooperative, mild distress Abdomen: Normal bowel sounds, Soft, No tenderness, No hepatosplenomegaly, No masses Extremities: No clubbing, No cyanosis, No edema, Normal pulses, No tenderness/swelling Skin: No rashes, No breakdown, No significant lesion Labs LABS Laboratory Tests Test 10/12/19 11:45 10/12/19 20:06 10/12/19 21:03 10/13/19 07:34 Glucose (Fingerstick) 149 mg/dL (70-99) 270 mg/dL (70-99) 159 mg/dL (70-99) O2 Saturation 95 % (92-99) Arterial Blood pH 7.45 (7.35-7.45) Arterial Blood pCO2 at Patient Temp 32 mmHg (35-46) Arterial Blood pO2 at Patient Temp 77 mmHg (65-108) Arterial Blood HCO3 21 mmol/L (21-28) Arterial Blood Base Excess -2 mmol/L (-3-3) FiO2 28 Assessment and Plan Assessmemt and Plan Problems Medical Problems: (1) Acute kidney injury Status: Acute (2) CAP (community acquired pneumonia) Status: Acute (3) Dehydration Status: Acute Comment Review of Relevant I have reviewed the following items kuldeep (where applicable) has been applied. Labs Laboratory Tests Test 10/11/19 15:52 10/11/19 16:40 10/11/19 17:20 10/11/19 19:45 White Blood Count 17.0 x10^3/uL (4.0-11.0) Red Blood Count 5.44 x10^6/uL (4.30-5.70) Hemoglobin 16.5 g/dL (13.0-17.5) Hematocrit 50.1 % (39.0-53.0) Mean Corpuscular Volume 92 fL (79-100) Mean Corpuscular Hemoglobin 30 pg (25-35) Mean Corpuscular Hemoglobin Concent 33 g/dL (31-37) Red Cell Distribution Width 13.3 % (11.5-14.5) Platelet Count 246 x10^3/uL (140-400) Neutrophils (%) (Auto) 84 % (31-73) Lymphocytes (%) (Auto) 8 % (24-48) Monocytes (%) (Auto) 8 % (0-9) Eosinophils (%) (Auto) 0 % (0-3) Basophils (%) (Auto) 1 % (0-3) Neutrophils # (Auto) 14.3 x10^3/uL (1.8-7.7) Lymphocytes # (Auto) 1.3 x10^3/uL (1.0-4.8) Monocytes # (Auto) 1.3 x10^3/uL (0.0-1.1) Eosinophils # (Auto) 0.0 x10^3/uL (0.0-0.7) Basophils # (Auto) 0.1 x10^3/uL (0.0-0.2) Segmented Neutrophils % 82 % (35-66) Band Neutrophils % 2 % (0-9) Lymphocytes % 9 % (24-48) Monocytes % 7 % (0-10) Platelet Estimate Adequate (ADEQUATE) Large Platelets Few Prothrombin Time 12.4 SEC (11.7-14.0) Prothromb Time International Ratio 1.0 (0.8-1.1) Sodium Level 137 mmol/L (136-145) Potassium Level 5.1 mmol/L (3.5-5.1) Chloride Level 101 mmol/L (98-107) Carbon Dioxide Level 27 mmol/L (21-32) Anion Gap 9 (6-14) Blood Urea Nitrogen 29 mg/dL (8-26) Creatinine 1.7 mg/dL (0.7-1.3) Estimated GFR (Cockcroft-Gault) 39.4 BUN/Creatinine Ratio 17 (6-20) Glucose Level 211 mg/dL (70-99) Lactic Acid Level 2.3 mmol/L (0.4-2.0) Calcium Level 10.0 mg/dL (8.5-10.1) Magnesium Level 2.3 mg/dL (1.8-2.4) Total Bilirubin 0.6 mg/dL (0.2-1.0) Aspartate Amino Transf (AST/SGOT) 20 U/L (15-37) Alanine Aminotransferase (ALT/SGPT) 17 U/L (16-63) Alkaline Phosphatase 120 U/L (46-116) Ammonia < 10 mcmol/L (11-34) Troponin I Quantitative < 0.017 ng/mL (0.000-0.055) TO-Pay-R-Type Natriuretic Peptide 613 pg/mL (0-449) Total Protein 9.1 g/dL (6.4-8.2) Albumin 4.0 g/dL (3.4-5.0) Albumin/Globulin Ratio 0.8 (1.0-1.7) Mycoplasma Serology (LAB) Negative (NEGATIVE) Urine Collection Type Unknown Urine Color Yellow Urine Clarity Clear Urine pH 5.0 Urine Specific Truxton >=1.030 Urine Protein Negative mg/dL (NEG-TRACE) Urine Glucose (UA) >=1000 mg/dL (NEG) Urine Ketones (Stick) 15 mg/dL (NEG) Urine Blood Moderate (NEG) Urine Nitrite Negative (NEG) Urine Bilirubin Negative (NEG) Urine Urobilinogen Dipstick 0.2 mg/dL (0.2 mg/dL) Urine Leukocyte Esterase Negative (NEG) Urine RBC 6-10 /HPF (0-2) Urine WBC 5-10 /HPF (0-4) Urine Bacteria 0 /HPF (0-FEW) Urine Mucus Mod /LPF Influenza Type A Antigen Negative (NEGATIVE) Influenza Type B Antigen Negative (NEGATIVE) Glucose (Fingerstick) 141 mg/dL (70-99) Test 10/11/19 22:10 10/12/19 07:22 10/12/19 10:25 10/12/19 11:45 Hemoglobin A1c 8.0 % (4.8-5.6) Lactic Acid Level 1.4 mmol/L (0.4-2.0) Glucose (Fingerstick) 153 mg/dL (70-99) 149 mg/dL (70-99) White Blood Count 12.6 x10^3/uL (4.0-11.0) Red Blood Count 5.04 x10^6/uL (4.30-5.70) Hemoglobin 15.2 g/dL (13.0-17.5) Hematocrit 46.9 % (39.0-53.0) Mean Corpuscular Volume 93 fL (79-100) Mean Corpuscular Hemoglobin 30 pg (25-35) Mean Corpuscular Hemoglobin Concent 33 g/dL (31-37) Red Cell Distribution Width 13.7 % (11.5-14.5) Platelet Count 217 x10^3/uL (140-400) Neutrophils (%) (Auto) 76 % (31-73) Lymphocytes (%) (Auto) 14 % (24-48) Monocytes (%) (Auto) 9 % (0-9) Eosinophils (%) (Auto) 0 % (0-3) Basophils (%) (Auto) 1 % (0-3) Neutrophils # (Auto) 9.6 x10^3/uL (1.8-7.7) Lymphocytes # (Auto) 1.8 x10^3/uL (1.0-4.8) Monocytes # (Auto) 1.1 x10^3/uL (0.0-1.1) Eosinophils # (Auto) 0.1 x10^3/uL (0.0-0.7) Basophils # (Auto) 0.1 x10^3/uL (0.0-0.2) Sodium Level 139 mmol/L (136-145) Potassium Level 4.4 mmol/L (3.5-5.1) Chloride Level 103 mmol/L (98-107) Carbon Dioxide Level 23 mmol/L (21-32) Anion Gap 13 (6-14) Blood Urea Nitrogen 26 mg/dL (8-26) Creatinine 1.3 mg/dL (0.7-1.3) Estimated GFR (Cockcroft-Gault) 53.7 Glucose Level 150 mg/dL (70-99) Calcium Level 9.3 mg/dL (8.5-10.1) Test 10/12/19 20:06 10/12/19 21:03 10/13/19 07:34 Glucose (Fingerstick) 270 mg/dL (70-99) 159 mg/dL (70-99) O2 Saturation 95 % (92-99) Arterial Blood pH 7.45 (7.35-7.45) Arterial Blood pCO2 at Patient Temp 32 mmHg (35-46) Arterial Blood pO2 at Patient Temp 77 mmHg (65-108) Arterial Blood HCO3 21 mmol/L (21-28) Arterial Blood Base Excess -2 mmol/L (-3-3) FiO2 28 Laboratory Tests Test 10/12/19 11:45 10/12/19 20:06 10/12/19 21:03 10/13/19 07:34 Glucose (Fingerstick) 149 mg/dL (70-99) 270 mg/dL (70-99) 159 mg/dL (70-99) O2 Saturation 95 % (92-99) Arterial Blood pH 7.45 (7.35-7.45) Arterial Blood pCO2 at Patient Temp 32 mmHg (35-46) Arterial Blood pO2 at Patient Temp 77 mmHg (65-108) Arterial Blood HCO3 21 mmol/L (21-28) Arterial Blood Base Excess -2 mmol/L (-3-3) FiO2 28 Microbiology 10/11/19 Blood Culture - Final, Complete Medications Current Medications Albuterol/ Ipratropium (Duoneb) 3 ml 1X ONCE NEB Last administered on 10/11/19at 16:02; Start 10/11/19 at 16:00; Stop 10/11/19 at 16:01; Status DC Sodium Chloride 1,000 ml @ 1,000 mls/hr 1X ONCE IV Last administered on 10/11/19at 17:24; Start 10/11/19 at 17:15; Stop 10/11/19 at 18:14; Status DC Ceftriaxone Sodium (Rocephin) 1 gm 1X ONCE IVP Last administered on 10/11/19at 17:24; Start 10/11/19 at 17:15; Stop 10/11/19 at 17:18; Status DC Azithromycin (Zithromax) 500 mg 1X ONCE PO Last administered on 10/11/19at 17:24; Start 10/11/19 at 17:15; Stop 10/11/19 at 17:18; Status DC Ondansetron HCl (Zofran) 4 mg PRN Q8HRS PRN IV NAUSEA/VOMITING; Start 10/11/19 at 17:30; Stop 10/12/19 at 17:29; Status DC Morphine Sulfate (Morphine Sulfate) 2 mg PRN Q2HR PRN IV PAIN Last administered on 10/12/19at 08:55; Start 10/11/19 at 17:30; Stop 10/12/19 at 17:29; Status DC Sodium Chloride 1,000 ml @ 125 mls/hr Q8H IV ; Start 10/11/19 at 17:18; Stop 10/12/19 at 10:22; Status DC Acetaminophen (Tylenol) 650 mg PRN Q4HRS PRN PO FEVER Last administered on 10/12/19at 08:23; Start 10/11/19 at 17:30; Stop 10/12/19 at 17:29; Status DC Albuterol/ Ipratropium (Duoneb) 3 ml RTQID NEB Last administered on 10/12/19at 15:36; Start 10/11/19 at 20:00; Stop 10/12/19 at 19:59; Status DC Aspirin (Ecotrin) 81 mg DAILY PO Last administered on 10/13/19 09:05; Start 10/12/19 at 09:00 Atorvastatin Calcium (Lipitor) 20 mg QHS PO Last administered on 10/12/19 22:23; Start 10/11/19 at 21:00 Heparin Sodium (Porcine) (Heparin Sodium) 5,000 unit Q8HRS SQ Last administered on 10/13/19 05:54; Start 10/11/19 at 22:00 Ceftriaxone Sodium (Rocephin) 1 gm Q24H IVP Last administered on 10/12/19 12:05; Start 10/12/19 at 11:30 Azithromycin 500 mg/Sodium Chloride 250 ml @ 250 mls/hr Q24H IV Last administered on 10/13/19 09:54; Start 10/12/19 at 10:30 Insulin Glargine (Lantus Syringe) 5 unit QHS SQ Last administered on 10/12/19 22:35; Start 10/11/19 at 22:00 Insulin Human Lispro (HumaLOG) 0-5 UNITS TIDACHC SQ Last administered on 10/13/19 09:09; Start 10/11/19 at 22:00 Dextrose (Dextrose 50%-Water Syringe) 12.5 gm PRN Q15MIN PRN IV SEE COMMENTS; Start 10/11/19 at 21:30 Oseltamivir Phosphate (Tamiflu) 30 mg DAILY PO Last administered on 10/13/19 09:06; Start 10/12/19 at 10:30; Stop 10/17/19 at 10:29 Polyethylene Glycol (miraLAX PACKET) 17 gm DAILY PO Last administered on 10/13/19 09:05; Start 10/12/19 at 12:00 Psyllium Hydrophilic Mucilloid (Metamucil Fiber Packet) 1 pkt DAILY PO Last administered on 10/13/19 09:05; Start 10/12/19 at 12:00 Docusate Sodium (Colace) 100 mg BID PO Last administered on 10/13/19 09:06; Start 10/12/19 at 11:45 Lactobacillus Rhamnosus (Culturelle) 1 cap BID PO Last administered on 10/13/19 09:06; Start 10/12/19 at 21:00 Acetaminophen/ Hydrocodone Bitart (Lortab 5/325) 1 tab PRN Q4HRS PRN PO PAIN Last administered on 10/13/19at 07:19; Start 10/13/19 at 07:00 Albuterol/ Ipratropium (Duoneb) 3 ml RTQID NEB Last administered on 10/13/19at 10:53; Start 10/13/19 at 12:00 Albuterol/ Ipratropium (Duoneb) 3 ml 1X ONCE NEB Last administered on 10/13/19at 08:52; Start 10/13/19 at 08:45; Stop 10/13/19 at 08:46; Status DC Budesonide (Pulmicort) 0.5 mg RTBID NEB ; Start 10/13/19 at 20:00 Budesonide (Pulmicort) 0.5 mg 1X ONCE NEB Last administered on 10/13/19at 08:52; Start 10/13/19 at 08:45; Stop 10/13/19 at 08:46; Status DC Active Scripts Active Hydrocodone-Apap 5-325 (Hydrocodone Bit/Acetaminophen) 1 Tab Tablet 1 Tab PO PRN Q4HRS PRN 7 Days Reported Januvia (Sitagliptin Phosphate) 100 Mg Tablet 1 Tab PO DAILY Aspir-Low (Aspirin) 81 Mg Tablet.dr 1 Tab PO DAILY Metformin Hcl Er (Metformin Hcl) 1,000 Mg Tab.er.24 1,000 Mg PO BID Lisinopril 10 Mg Tablet 1 Tab PO DAILY Trulicity (Dulaglutide) 0.75 Mg/0.5 Ml Pen.injctr 0.75 Mg SQ WEEKLY Invokana (Canagliflozin) 300 Mg Tablet 300 Mg PO DAILY Atorvastatin Calcium 20 Mg Tablet 20 Mg PO DAILY Vitals/I & O Vital Sign - Last 24 Hours 10/12/19 10/12/19 10/12/19 10/12/19 15:00 15:36 19:00 19:30 Temp 97.4 98.1 97.4 98.1 Pulse 90 112 Resp 16 24 B/P (MAP) 125/76 (92) 127/72 (90) Pulse Ox 93 94 92 O2 Delivery Room Air Room Air Nasal Cannula Nasal Cannula O2 Flow Rate 2.0 2.0 10/12/19 10/13/19 10/13/19 10/13/19 23:00 03:00 07:19 07:59 Temp 98.1 98.0 97.7 98.1 98.0 97.7 Pulse 91 92 89 Resp 23 22 24 B/P (MAP) 135/84 (101) 143/84 (103) 138/82 (100) Pulse Ox 95 96 98 O2 Delivery Room Air Nasal Cannula Nasal Cannula Nasal Cannula O2 Flow Rate 2.0 2.0 2.0 10/13/19 10/13/19 08:54 10:54 Pulse Ox 93 93 O2 Delivery Nasal Cannula Nasal Cannula O2 Flow Rate 1.0 2.0 Intake and Output 10/12/19 10/12/19 10/13/19 15:00 23:00 07:00 Intake Total 500 ml 800 ml Output Total 0 ml Balance 500 ml 800 ml 0 ml JOSE PRIETO MD Oct 13, 2019 11:09
[2019-10-13] MEDS: cefTRIAXone IV Push 1 GM VIAL. IVP SCH (12:15)
[2019-10-13] MEDS ORDERED: ASPIRIN CHEWABLE 81 MG TABLET. PO ONE (15:15)
[2019-10-13] MEDS ORDERED: NITROGLYCERIN SUBLINGUAL 0.4 MG BOTTLE OF 25. SL PRN (15:15)
--- NOTE | 2019-10-13 15:30 | NUR ---
Rapid resp: Called to rm 548 for pt c/o chest tightness. Pt A&O with hx dimentia. VSS on 2l n/c, EKG SR no changes and seen by Dr Engel who was on the floor. Pt' flinched and groaned when lt chest wall was palpated but not tender elsewhere, Staff stated pt had been coughing quite a bit as well. Dr Engel placed orders for Card consult, NTG SL, . Had bretaing tx and labs. To remain on 5So per Dr Engel. PT is DNR status
--- NOTE | 2019-10-13 15:34 | RAD ---
Portable chest x-ray compared to similar examination dated 10/12/2019 for history of new chest pain. FINDINGS: No significant interval change the appearance the chest. Central vascular congestion and mild interstitial edema, elevated left hemidiaphragm, possible left pleural effusion are all stable. IMPRESSION: 1. Stable chest x-ray. Electronically signed by: Shantanu Gan MD (10/13/2019 3:31 PM) [id number]
--- NOTE | 2019-10-13 15:39 | NUR ---
Rapid response called at 1500. Pt experiencing new onset of chest pain. Pt's vitals were 124/72, HR 100, 95% on 2L NC. Stat EKG obtained. Dr. Engel notified, orders received. Nitro and aspirin administered. Vitals at 1525 were 100/64, HR 104, 96% on 2L NC. Dr. Engel ordered Lidocaine patch to place on pt's left side chest. Will apply when available. This RN will continue to monitor this pt closely.
[2019-10-13 15:50] LABS: BASO # 0.1 x10^3/uL (0.0-0.2); BASO % 1 % (0-3); EOS # 0.1 x10^3/uL (0.0-0.7); EOS % 1 % (0-3); HEMATOCRIT 44.1 % (39.0-53.0); HEMOGLOBIN 14.4 g/dL (13.0-17.5); LYMPH # 2.2 x10^3/uL (1.0-4.8); LYMPH % 14 % (24-48); MEAN CORPUSCULAR HEMOGLOBIN 30 pg (25-35); MEAN CORPUSCULAR HGB CONC 33 g/dL (31-37); MEAN CORPUSCULAR VOLUME 93 fL (79-100); MONO # 1.6 x10^3/uL (0.0-1.1); MONO % 10 % (0-9); NEUT # 11.4 x10^3/uL (1.8-7.7); NEUT % 75 % (31-73); PLATELET COUNT 192 x10^3/uL (140-400); RED BLOOD COUNT 4.76 x10^6/uL (4.30-5.70); RED CELL DISTRIBUTION WIDTH 13.1 % (11.5-14.5); WHITE BLOOD COUNT 15.4 x10^3/uL (4.0-11.0)
[2019-10-13] MEDS: LIDOCAINE (700MG/PATCH) PATCH. TD SCH (15:59)
[2019-10-13 16:07] LABS: CALCIUM 8.7 mg/dL (8.5-10.1); CREATININE 1.3 mg/dL (0.7-1.3); GFR 53.7
--- NOTE | 2019-10-13 18:23 | NUR ---
This RN administered pt's dinner dose of Humalog late because pt wouldn't eat at time of scheduled administration. Pt's BS 200. 2 units administered when pt ate dinner. Will continue to monitor.
[2019-10-13] MEDS: BUDESONIDE 0.5 MG/2 ML NEBU. NEB SCH (19:06)
[2019-10-13] MEDS: ATORVASTATIN CALCIUM 20 MG TABLET PO SCH (21:37)
[2019-10-13] MEDS: INSULIN GLARGINE SYRINGE. SQ SCH (21:42)
[2019-10-14 03:00] VITALS: BP 125/76
[2019-10-14] MEDS: PATCH REMOVAL. MC SCH ×2 (04:00→21:00)
[2019-10-14] MEDS: HYDROcodone/APAP 5/325MG 1 TAB TABLET PO PRN ×2 (04:30→08:40)
[2019-10-14 05:47] LABS: BASO # 0.1 x10^3/uL (0.0-0.2); BASO % 1 % (0-3); EOS # 0.2 x10^3/uL (0.0-0.7); EOS % 2 % (0-3); HEMATOCRIT 44.9 % (39.0-53.0); HEMOGLOBIN 14.7 g/dL (13.0-17.5); LYMPH # 1.8 x10^3/uL (1.0-4.8); LYMPH % 17 % (24-48); MEAN CORPUSCULAR HEMOGLOBIN 30 pg (25-35); MEAN CORPUSCULAR HGB CONC 33 g/dL (31-37); MEAN CORPUSCULAR VOLUME 93 fL (79-100); MONO # 1.1 x10^3/uL (0.0-1.1); MONO % 10 % (0-9); NEUT # 7.8 x10^3/uL (1.8-7.7); NEUT % 71 % (31-73); PLATELET COUNT 190 x10^3/uL (140-400); RED BLOOD COUNT 4.85 x10^6/uL (4.30-5.70); RED CELL DISTRIBUTION WIDTH 13.2 % (11.5-14.5); WHITE BLOOD COUNT 10.9 x10^3/uL (4.0-11.0)
[2019-10-14] MEDS: HEPARIN for SUB-Q USE 5,000 UNIT/ML VIAL. SQ SCH ×3 (05:52→21:34)
[2019-10-14 06:07] LABS: CREATININE 1.3 mg/dL (0.7-1.3); GFR 53.7; POTASSIUM 4.3 mmol/L (3.5-5.1)
[2019-10-14] MEDS: INSULIN LISPRO 300 UNITS/3 ML VIAL. SQ SCH ×4 (07:30→21:00)
[2019-10-14] MEDS: IPRATRPIUM/ALBUTEROL 0.5/2.5MG 3 ML NEBU. NEB SCH ×4 (07:44→19:51)
[2019-10-14] MEDS: BUDESONIDE 0.5 MG/2 ML NEBU. NEB SCH ×2 (07:44→19:56)
[2019-10-14 07:51] VITALS: BP 128/79
--- NOTE | 2019-10-14 08:36 | PDOC ---
PULMONARY PROGRESS NOTES Subjective more alert, sob, cough better. Vitals Vital Signs Date Time Temp Pulse Resp B/P (MAP) Pulse Ox O2 Delivery O2 Flow Rate FiO2 10/14/19 07:51 97.3 86 18 128/79 (95) 96 Room Air 97.3 10/14/19 07:49 2.0 ROS: No Nausea, No Chest Pain General: Alert HEENT: Other (nc at perrl) Lungs: Crackles Cardiovascular: S1, S2 Abdomen: Soft, Non-tender Neuro Exam: Alert Skin: Warm Labs Laboratory Tests Test 10/12/19 10:25 10/12/19 11:45 10/12/19 20:06 10/12/19 21:03 White Blood Count 12.6 x10^3/uL (4.0-11.0) Red Blood Count 5.04 x10^6/uL (4.30-5.70) Hemoglobin 15.2 g/dL (13.0-17.5) Hematocrit 46.9 % (39.0-53.0) Mean Corpuscular Volume 93 fL (79-100) Mean Corpuscular Hemoglobin 30 pg (25-35) Mean Corpuscular Hemoglobin Concent 33 g/dL (31-37) Red Cell Distribution Width 13.7 % (11.5-14.5) Platelet Count 217 x10^3/uL (140-400) Neutrophils (%) (Auto) 76 % (31-73) Lymphocytes (%) (Auto) 14 % (24-48) Monocytes (%) (Auto) 9 % (0-9) Eosinophils (%) (Auto) 0 % (0-3) Basophils (%) (Auto) 1 % (0-3) Neutrophils # (Auto) 9.6 x10^3/uL (1.8-7.7) Lymphocytes # (Auto) 1.8 x10^3/uL (1.0-4.8) Monocytes # (Auto) 1.1 x10^3/uL (0.0-1.1) Eosinophils # (Auto) 0.1 x10^3/uL (0.0-0.7) Basophils # (Auto) 0.1 x10^3/uL (0.0-0.2) Sodium Level 139 mmol/L (136-145) Potassium Level 4.4 mmol/L (3.5-5.1) Chloride Level 103 mmol/L (98-107) Carbon Dioxide Level 23 mmol/L (21-32) Anion Gap 13 (6-14) Blood Urea Nitrogen 26 mg/dL (8-26) Creatinine 1.3 mg/dL (0.7-1.3) Estimated GFR (Cockcroft-Gault) 53.7 Glucose Level 150 mg/dL (70-99) Calcium Level 9.3 mg/dL (8.5-10.1) Glucose (Fingerstick) 149 mg/dL (70-99) 270 mg/dL (70-99) O2 Saturation 95 % (92-99) Arterial Blood pH 7.45 (7.35-7.45) Arterial Blood pCO2 at Patient Temp 32 mmHg (35-46) Arterial Blood pO2 at Patient Temp 77 mmHg (65-108) Arterial Blood HCO3 21 mmol/L (21-28) Arterial Blood Base Excess -2 mmol/L (-3-3) FiO2 28 Test 10/13/19 07:34 10/13/19 12:19 10/13/19 15:40 10/13/19 17:06 Glucose (Fingerstick) 159 mg/dL (70-99) 180 mg/dL (70-99) 200 mg/dL (70-99) White Blood Count 15.4 x10^3/uL (4.0-11.0) Red Blood Count 4.76 x10^6/uL (4.30-5.70) Hemoglobin 14.4 g/dL (13.0-17.5) Hematocrit 44.1 % (39.0-53.0) Mean Corpuscular Volume 93 fL (79-100) Mean Corpuscular Hemoglobin 30 pg (25-35) Mean Corpuscular Hemoglobin Concent 33 g/dL (31-37) Red Cell Distribution Width 13.1 % (11.5-14.5) Platelet Count 192 x10^3/uL (140-400) Neutrophils (%) (Auto) 75 % (31-73) Lymphocytes (%) (Auto) 14 % (24-48) Monocytes (%) (Auto) 10 % (0-9) Eosinophils (%) (Auto) 1 % (0-3) Basophils (%) (Auto) 1 % (0-3) Neutrophils # (Auto) 11.4 x10^3/uL (1.8-7.7) Lymphocytes # (Auto) 2.2 x10^3/uL (1.0-4.8) Monocytes # (Auto) 1.6 x10^3/uL (0.0-1.1) Eosinophils # (Auto) 0.1 x10^3/uL (0.0-0.7) Basophils # (Auto) 0.1 x10^3/uL (0.0-0.2) Sodium Level 135 mmol/L (136-145) Potassium Level 4.0 mmol/L (3.5-5.1) Chloride Level 99 mmol/L (98-107) Carbon Dioxide Level 24 mmol/L (21-32) Anion Gap 12 (6-14) Blood Urea Nitrogen 29 mg/dL (8-26) Creatinine 1.3 mg/dL (0.7-1.3) Estimated GFR (Cockcroft-Gault) 53.7 Glucose Level 252 mg/dL (70-99) Calcium Level 8.7 mg/dL (8.5-10.1) Troponin I Quantitative < 0.017 ng/mL (0.000-0.055) Test 10/13/19 21:27 10/14/19 05:20 10/14/19 07:47 Glucose (Fingerstick) 209 mg/dL (70-99) 148 mg/dL (70-99) White Blood Count 10.9 x10^3/uL (4.0-11.0) Red Blood Count 4.85 x10^6/uL (4.30-5.70) Hemoglobin 14.7 g/dL (13.0-17.5) Hematocrit 44.9 % (39.0-53.0) Mean Corpuscular Volume 93 fL (79-100) Mean Corpuscular Hemoglobin 30 pg (25-35) Mean Corpuscular Hemoglobin Concent 33 g/dL (31-37) Red Cell Distribution Width 13.2 % (11.5-14.5) Platelet Count 190 x10^3/uL (140-400) Neutrophils (%) (Auto) 71 % (31-73) Lymphocytes (%) (Auto) 17 % (24-48) Monocytes (%) (Auto) 10 % (0-9) Eosinophils (%) (Auto) 2 % (0-3) Basophils (%) (Auto) 1 % (0-3) Neutrophils # (Auto) 7.8 x10^3/uL (1.8-7.7) Lymphocytes # (Auto) 1.8 x10^3/uL (1.0-4.8) Monocytes # (Auto) 1.1 x10^3/uL (0.0-1.1) Eosinophils # (Auto) 0.2 x10^3/uL (0.0-0.7) Basophils # (Auto) 0.1 x10^3/uL (0.0-0.2) Sodium Level 138 mmol/L (136-145) Potassium Level 4.3 mmol/L (3.5-5.1) Chloride Level 101 mmol/L (98-107) Carbon Dioxide Level 26 mmol/L (21-32) Anion Gap 11 (6-14) Blood Urea Nitrogen 25 mg/dL (8-26) Creatinine 1.3 mg/dL (0.7-1.3) Estimated GFR (Cockcroft-Gault) 53.7 Glucose Level 152 mg/dL (70-99) Calcium Level 9.0 mg/dL (8.5-10.1) Troponin I Quantitative < 0.017 ng/mL (0.000-0.055) Laboratory Tests Test 10/13/19 12:19 10/13/19 15:40 10/13/19 17:06 10/13/19 21:27 Glucose (Fingerstick) 180 mg/dL (70-99) 200 mg/dL (70-99) 209 mg/dL (70-99) White Blood Count 15.4 x10^3/uL (4.0-11.0) Red Blood Count 4.76 x10^6/uL (4.30-5.70) Hemoglobin 14.4 g/dL (13.0-17.5) Hematocrit 44.1 % (39.0-53.0) Mean Corpuscular Volume 93 fL (79-100) Mean Corpuscular Hemoglobin 30 pg (25-35) Mean Corpuscular Hemoglobin Concent 33 g/dL (31-37) Red Cell Distribution Width 13.1 % (11.5-14.5) Platelet Count 192 x10^3/uL (140-400) Neutrophils (%) (Auto) 75 % (31-73) Lymphocytes (%) (Auto) 14 % (24-48) Monocytes (%) (Auto) 10 % (0-9) Eosinophils (%) (Auto) 1 % (0-3) Basophils (%) (Auto) 1 % (0-3) Neutrophils # (Auto) 11.4 x10^3/uL (1.8-7.7) Lymphocytes # (Auto) 2.2 x10^3/uL (1.0-4.8) Monocytes # (Auto) 1.6 x10^3/uL (0.0-1.1) Eosinophils # (Auto) 0.1 x10^3/uL (0.0-0.7) Basophils # (Auto) 0.1 x10^3/uL (0.0-0.2) Sodium Level 135 mmol/L (136-145) Potassium Level 4.0 mmol/L (3.5-5.1) Chloride Level 99 mmol/L (98-107) Carbon Dioxide Level 24 mmol/L (21-32) Anion Gap 12 (6-14) Blood Urea Nitrogen 29 mg/dL (8-26) Creatinine 1.3 mg/dL (0.7-1.3) Estimated GFR (Cockcroft-Gault) 53.7 Glucose Level 252 mg/dL (70-99) Calcium Level 8.7 mg/dL (8.5-10.1) Troponin I Quantitative < 0.017 ng/mL (0.000-0.055) Test 10/14/19 05:20 10/14/19 07:47 White Blood Count 10.9 x10^3/uL (4.0-11.0) Red Blood Count 4.85 x10^6/uL (4.30-5.70) Hemoglobin 14.7 g/dL (13.0-17.5) Hematocrit 44.9 % (39.0-53.0) Mean Corpuscular Volume 93 fL (79-100) Mean Corpuscular Hemoglobin 30 pg (25-35) Mean Corpuscular Hemoglobin Concent 33 g/dL (31-37) Red Cell Distribution Width 13.2 % (11.5-14.5) Platelet Count 190 x10^3/uL (140-400) Neutrophils (%) (Auto) 71 % (31-73) Lymphocytes (%) (Auto) 17 % (24-48) Monocytes (%) (Auto) 10 % (0-9) Eosinophils (%) (Auto) 2 % (0-3) Basophils (%) (Auto) 1 % (0-3) Neutrophils # (Auto) 7.8 x10^3/uL (1.8-7.7) Lymphocytes # (Auto) 1.8 x10^3/uL (1.0-4.8) Monocytes # (Auto) 1.1 x10^3/uL (0.0-1.1) Eosinophils # (Auto) 0.2 x10^3/uL (0.0-0.7) Basophils # (Auto) 0.1 x10^3/uL (0.0-0.2) Sodium Level 138 mmol/L (136-145) Potassium Level 4.3 mmol/L (3.5-5.1) Chloride Level 101 mmol/L (98-107) Carbon Dioxide Level 26 mmol/L (21-32) Anion Gap 11 (6-14) Blood Urea Nitrogen 25 mg/dL (8-26) Creatinine 1.3 mg/dL (0.7-1.3) Estimated GFR (Cockcroft-Gault) 53.7 Glucose Level 152 mg/dL (70-99) Calcium Level 9.0 mg/dL (8.5-10.1) Troponin I Quantitative < 0.017 ng/mL (0.000-0.055) Glucose (Fingerstick) 148 mg/dL (70-99) Medications Active Scripts Medications Dose Route/Sig Max Daily Dose Days Date Category Hydrocodone-Apap 5-325 (Hydrocodone Bit/Acetaminophen) 1 Tab Tablet 1 Tab PO PRN Q4HRS PRN 7 07/25/19 Rx Januvia (Sitagliptin Phosphate) 100 Mg Tablet 1 Tab PO DAILY 07/18/19 Reported Aspir-Low (Aspirin) 81 Mg Tablet.dr 1 Tab PO DAILY 07/18/19 Reported Metformin Hcl Er (Metformin Hcl) 1,000 Mg Tab.er.24 1,000 Mg PO BID 07/18/19 Reported Lisinopril 10 Mg Tablet 1 Tab PO DAILY 04/04/19 Reported Trulicity (Dulaglutide) 0.75 Mg/0.5 Ml Pen.injctr 0.75 Mg SQ WEEKLY 04/04/19 Reported Invokana (Canagliflozin) 300 Mg Tablet 300 Mg PO DAILY 04/02/19 Reported Atorvastatin Calcium 20 Mg Tablet 20 Mg PO DAILY 04/02/19 Reported Impression . IMPRESSION: 1. Acute respiratory failure secondary to acute bronchitis, acute bronchospasm, cannot rule out pneumonia. 2. Abnormal chest x-ray. 3. Acute bronchospasm. 4. Acute bronchitis. 5. Leukocytosis. 6. Chronic kidney disease. 7. Hypertension. 8. Diabetes mellitus. Plan . PLAN AND RECOMMENDATIONS: 1. Titrate FiO2 to keep O2 saturation 92%. 2. Continue antibiotic. 3. cont inhaled corticosteroid. 4. cont bronchodilator. 5. Monitor respiratory status very closely. 6. We will do CT of the chest to evaluate for infiltrate. discussed w JAMES Osman MD Oct 14, 2019 08:36
[2019-10-14] MEDS: PSYLLIUM HUSK (SUGAR FREE) 1 PKT PACKET PO SCH (08:40)
[2019-10-14] MEDS: POLYETHYLENE GLYCOL 3350 17 GM PACKET. PO SCH ×3 (08:40→21:25)
[2019-10-14] MEDS: DOCUSATE SODIUM 100 MG CAPSULE. PO SCH ×2 (08:40→21:26)
[2019-10-14] MEDS: ASPIRIN ENTERIC COATED 81 MG TABLET.DR. PO SCH (08:40)
[2019-10-14] MEDS: OSELTAMIVIR 30 MG CAPSULE PO SCH (08:40)
[2019-10-14] MEDS: LACTOBACILLUS RHAMNOSUS GG 1 CAPSULE. PO SCH ×2 (08:40→21:26)
[2019-10-14] MEDS: LIDOCAINE (700MG/PATCH) PATCH. TD SCH (08:46)
--- NOTE | 2019-10-14 10:03 | RAD ---
Examination: CT chest without contrast HISTORY: History of infiltrates COMPARISON: None available TECHNIQUE: Axial CT images of chest were performed without contrast. Coronal and sagittal reformats are performed. Exposure: One or more of the following individualized dose reduction techniques were utilized for this examination: 1. Automated exposure control 2. Adjustment of the mA and/or kV according to patient size 3. Use of iterative reconstruction technique FINDINGS: The visualized thyroid gland grossly appears unremarkable. The central airways are patent. The caliber of the aorta grossly appears unremarkable. No radiologically significant mediastinal lymphadenopathy. Right lung base consolidation changes likely pneumonia or atelectasis. Mild left lung base airspace opacities likely atelectasis or infiltrates. There is narrowing of the left lower lobe bronchial branches with the some filling within the left lower lobe bronchial branches could be secretions or opacities. The liver, spleen demonstrates a few calcified granulomas. The visualized stomach is mildly distended. Small hiatal hernia. Moderate degenerative changes thoracic spine. IMPRESSION: Bibasilar lung consolidation changes likely pneumonia or atelectasis. Follow-up to resolution. There is mild narrowing of the left lower lobe bronchial branches with faint opacities within the left lower lobe bronchial branches could be secretions or opacities. Follow-up to resolution. Electronically signed by: Brant Naylor MD (10/14/2019 10:01 AM) [facility]
[2019-10-14] MEDS: AZITHROMYCIN 500 MG in IV NORMAL SALINE 250ML 250 ML IV SCH (10:21)
[2019-10-14] MEDS ORDERED: MAGNESIUM HYDROXIDE 2,400 MG/30 ML ORAL.SUSP. PO ONE (10:45)
[2019-10-14] MEDS ORDERED: BISACODYL 10 MG SUPP.RECT. PR PRN (10:45)
[2019-10-14] MEDS ORDERED: MAGNESIUM HYDROXIDE 2,400 MG/30 ML ORAL.SUSP. PO PRN (10:45)
[2019-10-14] MEDS ORDERED: KETOROLAC 30 MG/ML VIAL. IVP ONE (10:45)
--- NOTE | 2019-10-14 10:49 | NUR ---
This RN held pt's 1045 dose of Miralax due to pt already receiving dose this am. Medication is scheduled BID. Pt will receive second dose at 2100.
--- NOTE | 2019-10-14 10:54 | PDOC ---
PROGRESS NOTES Chief Complaint Chief Complaint Acute encephalopathy - likely toxic from pneumonia, hypoxia Shortness of breath - with bilateral infiltrates, this is a multifocal, likely atypical or viral pneumonia. Negative for mycoplasma or flu, empiric rocephin + azithromycin + renal dosed tamiflu Acute hypoxia - likely 2/2 pneumonia. will use nebs and wean as tolerated RACHEAL - likely vasomotor nephropathy, will hydrate Hematuria - with glucosuria, will culture urine and monitor Dementia - frequent redirection, light during day DM2 - hold metformin and invokana, will place on basal bolus plus insulin while inpatient and with RACHEAL HLD - HTN - History of Present Illness History of Present Illness chest pain, likely bruise, costochrondritis, had w/u yesterday, not angina, trop and EKG neg, have discussed with CV, he reviewed and has seen briefly, will cancel the consult weakness, PT and OT as able very weak DNR no family in room this AM Mr Ghosh is a 74yo M w/ PMHx Dementia, DM2, HLD, HTN brought into ED by EMS from home where he lives with his c/o shortness of breath and some mental status change. Patient denies being in any pain to include chest pain, abdominal pain, or headache. Patient does complain of shortness of breath and states that it is worse when he tries to move around, but when asked after a few minutes he asks why he is here.. He has also had a cough. Patient is not sure whether or not he has run a fever. EKG shows sinus tachycardia, 108bpm WBC 17 , tachycardic, and CXR reveals mild interstitial opacities bilaterally. He was placed on 2L NCO2 for O2 saturations below 88%, no history of low O2. Cr 1.7, BUN 29, glucose 211. Vitals Vitals Vital Signs Date Time Temp Pulse Resp B/P (MAP) Pulse Ox O2 Delivery O2 Flow Rate FiO2 10/14/19 08:00 Nasal Cannula 2.0 10/14/19 07:51 97.3 86 18 128/79 (95) 96 97.3 Physical Exam General: Alert, Cooperative, mild distress Lungs: Crackles Abdomen: Normal bowel sounds, Soft, No tenderness, No hepatosplenomegaly, No masses Extremities: No clubbing, No cyanosis, No edema, Normal pulses, No tenderness/swelling Skin: No rashes, No breakdown, No significant lesion Labs LABS Laboratory Tests Test 10/13/19 12:19 10/13/19 15:40 10/13/19 17:06 10/13/19 21:27 Glucose (Fingerstick) 180 mg/dL (70-99) 200 mg/dL (70-99) 209 mg/dL (70-99) White Blood Count 15.4 x10^3/uL (4.0-11.0) Red Blood Count 4.76 x10^6/uL (4.30-5.70) Hemoglobin 14.4 g/dL (13.0-17.5) Hematocrit 44.1 % (39.0-53.0) Mean Corpuscular Volume 93 fL (79-100) Mean Corpuscular Hemoglobin 30 pg (25-35) Mean Corpuscular Hemoglobin Concent 33 g/dL (31-37) Red Cell Distribution Width 13.1 % (11.5-14.5) Platelet Count 192 x10^3/uL (140-400) Neutrophils (%) (Auto) 75 % (31-73) Lymphocytes (%) (Auto) 14 % (24-48) Monocytes (%) (Auto) 10 % (0-9) Eosinophils (%) (Auto) 1 % (0-3) Basophils (%) (Auto) 1 % (0-3) Neutrophils # (Auto) 11.4 x10^3/uL (1.8-7.7) Lymphocytes # (Auto) 2.2 x10^3/uL (1.0-4.8) Monocytes # (Auto) 1.6 x10^3/uL (0.0-1.1) Eosinophils # (Auto) 0.1 x10^3/uL (0.0-0.7) Basophils # (Auto) 0.1 x10^3/uL (0.0-0.2) Sodium Level 135 mmol/L (136-145) Potassium Level 4.0 mmol/L (3.5-5.1) Chloride Level 99 mmol/L (98-107) Carbon Dioxide Level 24 mmol/L (21-32) Anion Gap 12 (6-14) Blood Urea Nitrogen 29 mg/dL (8-26) Creatinine 1.3 mg/dL (0.7-1.3) Estimated GFR (Cockcroft-Gault) 53.7 Glucose Level 252 mg/dL (70-99) Calcium Level 8.7 mg/dL (8.5-10.1) Troponin I Quantitative < 0.017 ng/mL (0.000-0.055) Test 10/14/19 05:20 10/14/19 07:47 White Blood Count 10.9 x10^3/uL (4.0-11.0) Red Blood Count 4.85 x10^6/uL (4.30-5.70) Hemoglobin 14.7 g/dL (13.0-17.5) Hematocrit 44.9 % (39.0-53.0) Mean Corpuscular Volume 93 fL (79-100) Mean Corpuscular Hemoglobin 30 pg (25-35) Mean Corpuscular Hemoglobin Concent 33 g/dL (31-37) Red Cell Distribution Width 13.2 % (11.5-14.5) Platelet Count 190 x10^3/uL (140-400) Neutrophils (%) (Auto) 71 % (31-73) Lymphocytes (%) (Auto) 17 % (24-48) Monocytes (%) (Auto) 10 % (0-9) Eosinophils (%) (Auto) 2 % (0-3) Basophils (%) (Auto) 1 % (0-3) Neutrophils # (Auto) 7.8 x10^3/uL (1.8-7.7) Lymphocytes # (Auto) 1.8 x10^3/uL (1.0-4.8) Monocytes # (Auto) 1.1 x10^3/uL (0.0-1.1) Eosinophils # (Auto) 0.2 x10^3/uL (0.0-0.7) Basophils # (Auto) 0.1 x10^3/uL (0.0-0.2) Sodium Level 138 mmol/L (136-145) Potassium Level 4.3 mmol/L (3.5-5.1) Chloride Level 101 mmol/L (98-107) Carbon Dioxide Level 26 mmol/L (21-32) Anion Gap 11 (6-14) Blood Urea Nitrogen 25 mg/dL (8-26) Creatinine 1.3 mg/dL (0.7-1.3) Estimated GFR (Cockcroft-Gault) 53.7 Glucose Level 152 mg/dL (70-99) Calcium Level 9.0 mg/dL (8.5-10.1) Troponin I Quantitative < 0.017 ng/mL (0.000-0.055) Glucose (Fingerstick) 148 mg/dL (70-99) Assessment and Plan Assessmemt and Plan Problems Medical Problems: (1) Acute kidney injury Status: Acute (2) CAP (community acquired pneumonia) Status: Acute (3) Dehydration Status: Acute Comment Review of Relevant I have reviewed the following items kuldeep (where applicable) has been applied. Labs Laboratory Tests Test 10/12/19 11:45 10/12/19 20:06 10/12/19 21:03 10/13/19 07:34 Glucose (Fingerstick) 149 mg/dL (70-99) 270 mg/dL (70-99) 159 mg/dL (70-99) O2 Saturation 95 % (92-99) Arterial Blood pH 7.45 (7.35-7.45) Arterial Blood pCO2 at Patient Temp 32 mmHg (35-46) Arterial Blood pO2 at Patient Temp 77 mmHg (65-108) Arterial Blood HCO3 21 mmol/L (21-28) Arterial Blood Base Excess -2 mmol/L (-3-3) FiO2 28 Test 10/13/19 12:19 10/13/19 15:40 10/13/19 17:06 10/13/19 21:27 Glucose (Fingerstick) 180 mg/dL (70-99) 200 mg/dL (70-99) 209 mg/dL (70-99) White Blood Count 15.4 x10^3/uL (4.0-11.0) Red Blood Count 4.76 x10^6/uL (4.30-5.70) Hemoglobin 14.4 g/dL (13.0-17.5) Hematocrit 44.1 % (39.0-53.0) Mean Corpuscular Volume 93 fL (79-100) Mean Corpuscular Hemoglobin 30 pg (25-35) Mean Corpuscular Hemoglobin Concent 33 g/dL (31-37) Red Cell Distribution Width 13.1 % (11.5-14.5) Platelet Count 192 x10^3/uL (140-400) Neutrophils (%) (Auto) 75 % (31-73) Lymphocytes (%) (Auto) 14 % (24-48) Monocytes (%) (Auto) 10 % (0-9) Eosinophils (%) (Auto) 1 % (0-3) Basophils (%) (Auto) 1 % (0-3) Neutrophils # (Auto) 11.4 x10^3/uL (1.8-7.7) Lymphocytes # (Auto) 2.2 x10^3/uL (1.0-4.8) Monocytes # (Auto) 1.6 x10^3/uL (0.0-1.1) Eosinophils # (Auto) 0.1 x10^3/uL (0.0-0.7) Basophils # (Auto) 0.1 x10^3/uL (0.0-0.2) Sodium Level 135 mmol/L (136-145) Potassium Level 4.0 mmol/L (3.5-5.1) Chloride Level 99 mmol/L (98-107) Carbon Dioxide Level 24 mmol/L (21-32) Anion Gap 12 (6-14) Blood Urea Nitrogen 29 mg/dL (8-26) Creatinine 1.3 mg/dL (0.7-1.3) Estimated GFR (Cockcroft-Gault) 53.7 Glucose Level 252 mg/dL (70-99) Calcium Level 8.7 mg/dL (8.5-10.1) Troponin I Quantitative < 0.017 ng/mL (0.000-0.055) Test 10/14/19 05:20 10/14/19 07:47 White Blood Count 10.9 x10^3/uL (4.0-11.0) Red Blood Count 4.85 x10^6/uL (4.30-5.70) Hemoglobin 14.7 g/dL (13.0-17.5) Hematocrit 44.9 % (39.0-53.0) Mean Corpuscular Volume 93 fL (79-100) Mean Corpuscular Hemoglobin 30 pg (25-35) Mean Corpuscular Hemoglobin Concent 33 g/dL (31-37) Red Cell Distribution Width 13.2 % (11.5-14.5) Platelet Count 190 x10^3/uL (140-400) Neutrophils (%) (Auto) 71 % (31-73) Lymphocytes (%) (Auto) 17 % (24-48) Monocytes (%) (Auto) 10 % (0-9) Eosinophils (%) (Auto) 2 % (0-3) Basophils (%) (Auto) 1 % (0-3) Neutrophils # (Auto) 7.8 x10^3/uL (1.8-7.7) Lymphocytes # (Auto) 1.8 x10^3/uL (1.0-4.8) Monocytes # (Auto) 1.1 x10^3/uL (0.0-1.1) Eosinophils # (Auto) 0.2 x10^3/uL (0.0-0.7) Basophils # (Auto) 0.1 x10^3/uL (0.0-0.2) Sodium Level 138 mmol/L (136-145) Potassium Level 4.3 mmol/L (3.5-5.1) Chloride Level 101 mmol/L (98-107) Carbon Dioxide Level 26 mmol/L (21-32) Anion Gap 11 (6-14) Blood Urea Nitrogen 25 mg/dL (8-26) Creatinine 1.3 mg/dL (0.7-1.3) Estimated GFR (Cockcroft-Gault) 53.7 Glucose Level 152 mg/dL (70-99) Calcium Level 9.0 mg/dL (8.5-10.1) Troponin I Quantitative < 0.017 ng/mL (0.000-0.055) Glucose (Fingerstick) 148 mg/dL (70-99) Laboratory Tests Test 10/13/19 12:19 10/13/19 15:40 10/13/19 17:06 10/13/19 21:27 Glucose (Fingerstick) 180 mg/dL (70-99) 200 mg/dL (70-99) 209 mg/dL (70-99) White Blood Count 15.4 x10^3/uL (4.0-11.0) Red Blood Count 4.76 x10^6/uL (4.30-5.70) Hemoglobin 14.4 g/dL (13.0-17.5) Hematocrit 44.1 % (39.0-53.0) Mean Corpuscular Volume 93 fL (79-100) Mean Corpuscular Hemoglobin 30 pg (25-35) Mean Corpuscular Hemoglobin Concent 33 g/dL (31-37) Red Cell Distribution Width 13.1 % (11.5-14.5) Platelet Count 192 x10^3/uL (140-400) Neutrophils (%) (Auto) 75 % (31-73) Lymphocytes (%) (Auto) 14 % (24-48) Monocytes (%) (Auto) 10 % (0-9) Eosinophils (%) (Auto) 1 % (0-3) Basophils (%) (Auto) 1 % (0-3) Neutrophils # (Auto) 11.4 x10^3/uL (1.8-7.7) Lymphocytes # (Auto) 2.2 x10^3/uL (1.0-4.8) Monocytes # (Auto) 1.6 x10^3/uL (0.0-1.1) Eosinophils # (Auto) 0.1 x10^3/uL (0.0-0.7) Basophils # (Auto) 0.1 x10^3/uL (0.0-0.2) Sodium Level 135 mmol/L (136-145) Potassium Level 4.0 mmol/L (3.5-5.1) Chloride Level 99 mmol/L (98-107) Carbon Dioxide Level 24 mmol/L (21-32) Anion Gap 12 (6-14) Blood Urea Nitrogen 29 mg/dL (8-26) Creatinine 1.3 mg/dL (0.7-1.3) Estimated GFR (Cockcroft-Gault) 53.7 Glucose Level 252 mg/dL (70-99) Calcium Level 8.7 mg/dL (8.5-10.1) Troponin I Quantitative < 0.017 ng/mL (0.000-0.055) Test 10/14/19 05:20 10/14/19 07:47 White Blood Count 10.9 x10^3/uL (4.0-11.0) Red Blood Count 4.85 x10^6/uL (4.30-5.70) Hemoglobin 14.7 g/dL (13.0-17.5) Hematocrit 44.9 % (39.0-53.0) Mean Corpuscular Volume 93 fL (79-100) Mean Corpuscular Hemoglobin 30 pg (25-35) Mean Corpuscular Hemoglobin Concent 33 g/dL (31-37) Red Cell Distribution Width 13.2 % (11.5-14.5) Platelet Count 190 x10^3/uL (140-400) Neutrophils (%) (Auto) 71 % (31-73) Lymphocytes (%) (Auto) 17 % (24-48) Monocytes (%) (Auto) 10 % (0-9) Eosinophils (%) (Auto) 2 % (0-3) Basophils (%) (Auto) 1 % (0-3) Neutrophils # (Auto) 7.8 x10^3/uL (1.8-7.7) Lymphocytes # (Auto) 1.8 x10^3/uL (1.0-4.8) Monocytes # (Auto) 1.1 x10^3/uL (0.0-1.1) Eosinophils # (Auto) 0.2 x10^3/uL (0.0-0.7) Basophils # (Auto) 0.1 x10^3/uL (0.0-0.2) Sodium Level 138 mmol/L (136-145) Potassium Level 4.3 mmol/L (3.5-5.1) Chloride Level 101 mmol/L (98-107) Carbon Dioxide Level 26 mmol/L (21-32) Anion Gap 11 (6-14) Blood Urea Nitrogen 25 mg/dL (8-26) Creatinine 1.3 mg/dL (0.7-1.3) Estimated GFR (Cockcroft-Gault) 53.7 Glucose Level 152 mg/dL (70-99) Calcium Level 9.0 mg/dL (8.5-10.1) Troponin I Quantitative < 0.017 ng/mL (0.000-0.055) Glucose (Fingerstick) 148 mg/dL (70-99) Microbiology 10/11/19 Urine Culture - Final, Complete 10/11/19 Urine Culture Result 1 (MARCI) - Final, Complete 10/11/19 Blood Culture - Final, Complete Medications Current Medications Albuterol/ Ipratropium (Duoneb) 3 ml 1X ONCE NEB Last administered on 10/11/19at 16:02; Start 10/11/19 at 16:00; Stop 10/11/19 at 16:01; Status DC Sodium Chloride 1,000 ml @ 1,000 mls/hr 1X ONCE IV Last administered on 10/11/19 17:24; Start 10/11/19 at 17:15; Stop 10/11/19 at 18:14; Status DC Ceftriaxone Sodium (Rocephin) 1 gm 1X ONCE IVP Last administered on 10/11/19 17:24; Start 10/11/19 at 17:15; Stop 10/11/19 at 17:18; Status DC Azithromycin (Zithromax) 500 mg 1X ONCE PO Last administered on 10/11/19 17:24; Start 10/11/19 at 17:15; Stop 10/11/19 at 17:18; Status DC Ondansetron HCl (Zofran) 4 mg PRN Q8HRS PRN IV NAUSEA/VOMITING; Start 10/11/19 at 17:30; Stop 10/12/19 at 17:29; Status DC Morphine Sulfate (Morphine Sulfate) 2 mg PRN Q2HR PRN IV PAIN Last administered on 10/12/19 08:55; Start 10/11/19 at 17:30; Stop 10/12/19 at 17:29; Status DC Sodium Chloride 1,000 ml @ 125 mls/hr Q8H IV ; Start 10/11/19 at 17:18; Stop 10/12/19 at 10:22; Status DC Acetaminophen (Tylenol) 650 mg PRN Q4HRS PRN PO FEVER Last administered on 10/12/19 08:23; Start 10/11/19 at 17:30; Stop 10/12/19 at 17:29; Status DC Albuterol/ Ipratropium (Duoneb) 3 ml RTQID NEB Last administered on 10/12/19at 15:36; Start 10/11/19 at 20:00; Stop 10/12/19 at 19:59; Status DC Aspirin (Ecotrin) 81 mg DAILY PO Last administered on 10/14/19 08:40; Start 10/12/19 at 09:00 Atorvastatin Calcium (Lipitor) 20 mg QHS PO Last administered on 10/13/19 21:37; Start 10/11/19 at 21:00 Heparin Sodium (Porcine) (Heparin Sodium) 5,000 unit Q8HRS SQ Last administered on 10/14/19at 05:52; Start 10/11/19 at 22:00 Ceftriaxone Sodium (Rocephin) 1 gm Q24H IVP Last administered on 10/13/19 12:15; Start 10/12/19 at 11:30 Azithromycin 500 mg/Sodium Chloride 250 ml @ 250 mls/hr Q24H IV Last administered on 10/14/19 10:21; Start 10/12/19 at 10:30 Insulin Glargine (Lantus Syringe) 5 unit QHS SQ Last administered on 10/13/19 21:42; Start 10/11/19 at 22:00 Insulin Human Lispro (HumaLOG) 0-5 UNITS TIDACHC SQ Last administered on 10/13/19 18:19; Start 10/11/19 at 22:00 Dextrose (Dextrose 50%-Water Syringe) 12.5 gm PRN Q15MIN PRN IV SEE COMMENTS; Start 10/11/19 at 21:30 Oseltamivir Phosphate (Tamiflu) 30 mg DAILY PO Last administered on 10/14/19 08:40; Start 10/12/19 at 10:30; Stop 10/17/19 at 10:29 Polyethylene Glycol (miraLAX PACKET) 17 gm DAILY PO Last administered on 10/14/19 08:40; Start 10/12/19 at 12:00; Stop 10/14/19 at 10:44; Status DC Psyllium Hydrophilic Mucilloid (Metamucil Fiber Packet) 1 pkt DAILY PO Last administered on 10/14/19 08:40; Start 10/12/19 at 12:00 Docusate Sodium (Colace) 100 mg BID PO Last administered on 10/14/19 08:40; Start 10/12/19 at 11:45 Lactobacillus Rhamnosus (Culturelle) 1 cap BID PO Last administered on 10/14/19 08:40; Start 10/12/19 at 21:00 Acetaminophen/ Hydrocodone Bitart (Lortab 5/325) 1 tab PRN Q4HRS PRN PO PAIN Last administered on 10/14/19 08:40; Start 10/13/19 at 07:00; Stop 10/14/19 at 10:51; Status DC Albuterol/ Ipratropium (Duoneb) 3 ml RTQID NEB Last administered on 12/15/19at 07:44; Start 10/13/19 at 12:00 Albuterol/ Ipratropium (Duoneb) 3 ml 1X ONCE NEB Last administered on 10/13/19at 08:52; Start 10/13/19 at 08:45; Stop 10/13/19 at 08:46; Status DC Budesonide (Pulmicort) 0.5 mg RTBID NEB Last administered on 10/14/19at 07:44; Start 10/13/19 at 20:00 Budesonide (Pulmicort) 0.5 mg 1X ONCE NEB Last administered on 10/13/19at 08:52; Start 10/13/19 at 08:45; Stop 10/13/19 at 08:46; Status DC Aspirin (Children'S Aspirin) 324 mg 1X ONCE PO Last administered on 10/13/19at 15:17; Start 10/13/19 at 15:15; Stop 10/13/19 at 15:16; Status DC Nitroglycerin (Nitrostat) 0.4 mg PRN Q5MIN PRN SL CHEST PAIN Last administered on 10/13/19at 15:19; Start 10/13/19 at 15:15 Lidocaine (Lidoderm) 1 patch DAILY TD Last administered on 10/14/19at 08:46; Start 10/13/19 at 15:30 Miscellaneous (Lidoderm Patch Removal) 1 ea QHS MC Last administered on 10/14/19at 04:00; Start 10/13/19 at 21:00 Lorazepam (Ativan Inj) 0.5 mg 1X ONCE IVP ; Start 10/13/19 at 21:15; Stop 10/13/19 at 21:16; Status DC Ketorolac Tromethamine (Toradol 30mg Vial) 30 mg 1X ONCE IVP ; Start 10/14/19 at 10:45; Stop 10/14/19 at 10:46; Status DC Polyethylene Glycol (miraLAX PACKET) 17 gm BID PO ; Start 10/14/19 at 10:45 Magnesium Hydroxide (Milk Of Magnesia) 2,400 mg 1X ONCE PO ; Start 10/14/19 at 10:45; Stop 10/14/19 at 10:46; Status DC Magnesium Hydroxide (Milk Of Magnesia) 2,400 mg PRN DAILY PRN PO CONSTIPATION; Start 10/14/19 at 10:45 Bisacodyl (Dulcolax Supp) 10 mg PRN DAILY PRN DE CONSTIPATION; Start 10/14/19 at 10:45 Active Scripts Active Hydrocodone-Apap 5-325 (Hydrocodone Bit/Acetaminophen) 1 Tab Tablet 1 Tab PO PRN Q4HRS PRN 7 Days Reported Januvia (Sitagliptin Phosphate) 100 Mg Tablet 1 Tab PO DAILY Aspir-Low (Aspirin) 81 Mg Tablet.dr 1 Tab PO DAILY Metformin Hcl Er (Metformin Hcl) 1,000 Mg Tab.er.24 1,000 Mg PO BID Lisinopril 10 Mg Tablet 1 Tab PO DAILY Trulicity (Dulaglutide) 0.75 Mg/0.5 Ml Pen.injctr 0.75 Mg SQ WEEKLY Invokana (Canagliflozin) 300 Mg Tablet 300 Mg PO DAILY Atorvastatin Calcium 20 Mg Tablet 20 Mg PO DAILY Vitals/I & O Vital Sign - Last 24 Hours 10/13/19 10/13/19 10/13/19 10/13/19 10:54 11:59 14:45 15:19 Temp 97.6 97.6 Pulse 101 100 Resp 22 B/P (MAP) 126/71 (89) 124/72 Pulse Ox 93 98 97 O2 Delivery Nasal Cannula Nasal Cannula Nasal Cannula O2 Flow Rate 2.0 2.0 2.0 10/13/19 10/13/19 10/13/19 10/13/19 15:25 15:59 19:00 19:07 Temp 97.4 97.5 97.4 97.5 Pulse 104 104 96 Resp 20 20 B/P (MAP) 100/64 (76) 112/78 (89) 153/91 (111) Pulse Ox 96 96 96 97 O2 Delivery Nasal Cannula Nasal Cannula Nasal Cannula Nasal Cannula O2 Flow Rate 2.0 2.0 2.0 2.0 10/13/19 10/13/19 10/14/19 10/14/19 20:00 23:00 03:00 07:44 Temp 98.6 98.1 98.6 98.1 Pulse 83 82 Resp 20 20 B/P (MAP) 146/82 (103) 125/76 (92) Pulse Ox 97 95 94 O2 Delivery Nasal Cannula Nasal Cannula Nasal Cannula Nasal Cannula O2 Flow Rate 2.0 2.0 2.0 2.0 10/14/19 10/14/19 10/14/19 07:49 07:51 08:00 Temp 97.3 97.3 Pulse 86 Resp 18 B/P (MAP) 128/79 (95) Pulse Ox 94 96 O2 Delivery Nasal Cannula Room Air Nasal Cannula O2 Flow Rate 2.0 2.0 Intake and Output 10/13/19 10/13/19 10/14/19 15:00 23:00 07:00 Intake Total 370 ml 200 ml 300 ml Balance 370 ml 200 ml 300 ml JOSE PRIETO MD Oct 14, 2019 10:53
[2019-10-14] MEDS: cefTRIAXone IV Push 1 GM VIAL. IVP SCH (10:58)
[2019-10-14 11:59] VITALS: BP 117/73
[2019-10-14] MEDS: VANCOMYCIN PER PHARMACY MC PRN (13:20)
--- NOTE | 2019-10-14 13:20 | NUR ---
Pharmacy Vancomycin Dosing Note S:Consulted to monitor and dose vancomycin started 10/14/19. O:BURAK GÓMEZ is a 74 year old M with Bacteremia . Height: 6 feet, 1 inches Weight: 87.485902 kg [place] Body Weight: 79.90 Adjusted Body Weight: 82.74 Dosing Weight: Actual Other Antibiotics: ZITHROMAX ROCEPHIN LABS: Last BUN: 25 Last Creatinine: 1.3 Creatinine Clearance: 56 mL/min Last WBC: 10.9 Last Procalcitonin: Tmax (past 24 hours): 98.3 Microbiology: 10/11 Blood: GPC in clusters in 12/04 I/O: 870/- Drug Levels: Last level: on at Last dose given 10/14/19 at 1400 Vancomycin Dosing: Loading Dose: 1750 mg x1 Dosing Weight: Actual Target Trough: 15-20 A: Based on: Body weight and renal function P: 1. Start Vancomycin 1250 mg IV q24h 2. Follow up Trough level on 10/16/19 at 1330 3. Pharmacy will continue to monitor, follow and adjust therapy as needed. JR CLAYTON RPH, 10/14/19 1320
[2019-10-14] MEDS ORDERED: VANCOMYCIN 1.75 GM in IV NORMAL SALINE 500ML BAG 500 ML IV ONE (14:00)
[2019-10-14 15:59] VITALS: BP 143/52
[2019-10-14] MEDS: HYDROcodone/APAP 10/325 1 TAB TABLET PO PRN ×2 (16:51→21:38)
[2019-10-14 19:00] VITALS: BP 115/71
[2019-10-14] MEDS: ATORVASTATIN CALCIUM 20 MG TABLET PO SCH (21:26)
[2019-10-14] MEDS: INSULIN GLARGINE SYRINGE. SQ SCH (21:33)
[2019-10-14 23:00] VITALS: BP_SYST 118; BP_SYST 129; BP_DIAS 83; BP_DIAS 84
[2019-10-15 03:00] VITALS: BP 137/77
[2019-10-15 05:10] LABS: CREATININE 1.3 mg/dL (0.7-1.3); GFR 53.7
[2019-10-15] MEDS: HEPARIN for SUB-Q USE 5,000 UNIT/ML VIAL. SQ SCH ×3 (05:43→20:40)
[2019-10-15] MEDS: HYDROcodone/APAP 10/325 1 TAB TABLET PO PRN ×3 (05:45→20:34)
[2019-10-15 07:00] VITALS: BP 117/66
[2019-10-15] MEDS: BUDESONIDE 0.5 MG/2 ML NEBU. NEB SCH ×2 (07:14→21:41)
[2019-10-15] MEDS: IPRATRPIUM/ALBUTEROL 0.5/2.5MG 3 ML NEBU. NEB SCH ×4 (07:14→20:18)
--- NOTE | 2019-10-15 07:16 | EKG ---
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
[2019-10-15] MEDS: INSULIN LISPRO 300 UNITS/3 ML VIAL. SQ SCH ×4 (07:30→20:57)
--- NOTE | 2019-10-15 08:35 | PDOC ---
PULMONARY PROGRESS NOTES Subjective PT SOA WITH TALKING APPEARS ANXIUOS AT TIMES Vitals Vital Signs Date Time Temp Pulse Resp B/P (MAP) Pulse Ox O2 Delivery O2 Flow Rate FiO2 10/15/19 07:16 95 Nasal Cannula 1.0 10/15/19 07:00 98.0 68 18 117/66 (83) 98.0 ROS: No Nausea, No Chest Pain, No Abdominal Pain, No Increase Cough General: Alert HEENT: Other Lungs: Crackles Cardiovascular: S1, S2 Abdomen: Soft, Non-tender Neuro Exam: Alert Skin: Warm Labs Laboratory Tests Test 10/13/19 12:19 10/13/19 15:40 10/13/19 17:06 10/13/19 21:27 Glucose (Fingerstick) 180 mg/dL (70-99) 200 mg/dL (70-99) 209 mg/dL (70-99) White Blood Count 15.4 x10^3/uL (4.0-11.0) Red Blood Count 4.76 x10^6/uL (4.30-5.70) Hemoglobin 14.4 g/dL (13.0-17.5) Hematocrit 44.1 % (39.0-53.0) Mean Corpuscular Volume 93 fL (79-100) Mean Corpuscular Hemoglobin 30 pg (25-35) Mean Corpuscular Hemoglobin Concent 33 g/dL (31-37) Red Cell Distribution Width 13.1 % (11.5-14.5) Platelet Count 192 x10^3/uL (140-400) Neutrophils (%) (Auto) 75 % (31-73) Lymphocytes (%) (Auto) 14 % (24-48) Monocytes (%) (Auto) 10 % (0-9) Eosinophils (%) (Auto) 1 % (0-3) Basophils (%) (Auto) 1 % (0-3) Neutrophils # (Auto) 11.4 x10^3/uL (1.8-7.7) Lymphocytes # (Auto) 2.2 x10^3/uL (1.0-4.8) Monocytes # (Auto) 1.6 x10^3/uL (0.0-1.1) Eosinophils # (Auto) 0.1 x10^3/uL (0.0-0.7) Basophils # (Auto) 0.1 x10^3/uL (0.0-0.2) Sodium Level 135 mmol/L (136-145) Potassium Level 4.0 mmol/L (3.5-5.1) Chloride Level 99 mmol/L (98-107) Carbon Dioxide Level 24 mmol/L (21-32) Anion Gap 12 (6-14) Blood Urea Nitrogen 29 mg/dL (8-26) Creatinine 1.3 mg/dL (0.7-1.3) Estimated GFR (Cockcroft-Gault) 53.7 Glucose Level 252 mg/dL (70-99) Calcium Level 8.7 mg/dL (8.5-10.1) Troponin I Quantitative < 0.017 ng/mL (0.000-0.055) Test 10/14/19 05:20 10/14/19 07:47 10/14/19 11:51 10/14/19 16:52 White Blood Count 10.9 x10^3/uL (4.0-11.0) Red Blood Count 4.85 x10^6/uL (4.30-5.70) Hemoglobin 14.7 g/dL (13.0-17.5) Hematocrit 44.9 % (39.0-53.0) Mean Corpuscular Volume 93 fL (79-100) Mean Corpuscular Hemoglobin 30 pg (25-35) Mean Corpuscular Hemoglobin Concent 33 g/dL (31-37) Red Cell Distribution Width 13.2 % (11.5-14.5) Platelet Count 190 x10^3/uL (140-400) Neutrophils (%) (Auto) 71 % (31-73) Lymphocytes (%) (Auto) 17 % (24-48) Monocytes (%) (Auto) 10 % (0-9) Eosinophils (%) (Auto) 2 % (0-3) Basophils (%) (Auto) 1 % (0-3) Neutrophils # (Auto) 7.8 x10^3/uL (1.8-7.7) Lymphocytes # (Auto) 1.8 x10^3/uL (1.0-4.8) Monocytes # (Auto) 1.1 x10^3/uL (0.0-1.1) Eosinophils # (Auto) 0.2 x10^3/uL (0.0-0.7) Basophils # (Auto) 0.1 x10^3/uL (0.0-0.2) Sodium Level 138 mmol/L (136-145) Potassium Level 4.3 mmol/L (3.5-5.1) Chloride Level 101 mmol/L (98-107) Carbon Dioxide Level 26 mmol/L (21-32) Anion Gap 11 (6-14) Blood Urea Nitrogen 25 mg/dL (8-26) Creatinine 1.3 mg/dL (0.7-1.3) Estimated GFR (Cockcroft-Gault) 53.7 Glucose Level 152 mg/dL (70-99) Calcium Level 9.0 mg/dL (8.5-10.1) Troponin I Quantitative < 0.017 ng/mL (0.000-0.055) Glucose (Fingerstick) 148 mg/dL (70-99) 225 mg/dL (70-99) 162 mg/dL (70-99) Test 10/14/19 21:08 10/15/19 03:35 10/15/19 07:29 Glucose (Fingerstick) 173 mg/dL (70-99) 140 mg/dL (70-99) Creatinine 1.3 mg/dL (0.7-1.3) Estimated GFR (Cockcroft-Gault) 53.7 Laboratory Tests Test 10/14/19 11:51 10/14/19 16:52 10/14/19 21:08 10/15/19 03:35 Glucose (Fingerstick) 225 mg/dL (70-99) 162 mg/dL (70-99) 173 mg/dL (70-99) Creatinine 1.3 mg/dL (0.7-1.3) Estimated GFR (Cockcroft-Gault) 53.7 Test 10/15/19 07:29 Glucose (Fingerstick) 140 mg/dL (70-99) Medications Active Scripts Medications Dose Route/Sig Max Daily Dose Days Date Category Hydrocodone-Apap 5-325 (Hydrocodone Bit/Acetaminophen) 1 Tab Tablet 1 Tab PO PRN Q4HRS PRN 7 07/25/19 Rx Januvia (Sitagliptin Phosphate) 100 Mg Tablet 1 Tab PO DAILY 07/18/19 Reported Aspir-Low (Aspirin) 81 Mg Tablet.dr 1 Tab PO DAILY 07/18/19 Reported Metformin Hcl Er (Metformin Hcl) 1,000 Mg Tab.er.24 1,000 Mg PO BID 07/18/19 Reported Lisinopril 10 Mg Tablet 1 Tab PO DAILY 04/04/19 Reported Trulicity (Dulaglutide) 0.75 Mg/0.5 Ml Pen.injctr 0.75 Mg SQ WEEKLY 04/04/19 Reported Invokana (Canagliflozin) 300 Mg Tablet 300 Mg PO DAILY 04/02/19 Reported Atorvastatin Calcium 20 Mg Tablet 20 Mg PO DAILY 04/02/19 Reported Impression . IMPRESSION: 1. Acute respiratory failure MULTIFACTORIAL 2. Abnormal chest x-ray. POSSIBLE PNEUMONIA 3. Acute bronchospasm. 4. Acute bronchitis. 5. Leukocytosis. 6. Chronic kidney disease. 7. Hypertension. 8. Diabetes mellitus. CT CHEST Bibasilar lung consolidation changes likely pneumonia or atelectasis. Follow-up to resolution. There is mild narrowing of the left lower lobe bronchial branches with faint opacities within the left lower lobe bronchial branches could be secretions or opacities. Follow-up to resolution. Plan . ANTIBX O2 NEBS CT REVIEWED ATELECTASIS POSSIBLE PNEUMONIA REPEAT CT IN 2 MONTHS FELA LEE MD Oct 15, 2019 08:35
[2019-10-15] MEDS: DOCUSATE SODIUM 100 MG CAPSULE. PO SCH ×2 (09:41→20:34)
[2019-10-15] MEDS: OSELTAMIVIR 30 MG CAPSULE PO SCH (09:41)
[2019-10-15] MEDS: POLYETHYLENE GLYCOL 3350 17 GM PACKET. PO SCH ×2 (09:41→20:34)
[2019-10-15] MEDS: PSYLLIUM HUSK (SUGAR FREE) 1 PKT PACKET PO SCH (09:41)
[2019-10-15] MEDS: LACTOBACILLUS RHAMNOSUS GG 1 CAPSULE. PO SCH ×2 (09:41→20:33)
[2019-10-15] MEDS: ASPIRIN ENTERIC COATED 81 MG TABLET.DR. PO SCH (09:41)
[2019-10-15] MEDS: LIDOCAINE (700MG/PATCH) PATCH. TD SCH (09:45)
[2019-10-15] MEDS ORDERED: guaiFENesin DM 200MG/20MG 10 ML SYRUP PO PRN (10:00)
[2019-10-15] MEDS ORDERED: ONDANSETRON PF 4 MG/2 ML VIAL. IVP PRN (10:00)
[2019-10-15 10:39] VITALS: BP 138/87
[2019-10-15] MEDS: BENZONATATE 100 MG CAPSULE. PO SCH ×3 (10:44→20:33)
[2019-10-15] MEDS: AZITHROMYCIN 500 MG in IV NORMAL SALINE 250ML 250 ML IV SCH (10:45)
[2019-10-15] MEDS: cefTRIAXone IV Push 1 GM VIAL. IVP SCH (11:30)
--- NOTE | 2019-10-15 12:02 | PDOC ---
PROGRESS NOTES Chief Complaint Chief Complaint Acute encephalopathy - likely toxic from pneumonia, hypoxia Shortness of breath - with bilateral infiltrates, this is a multifocal, likely atypical or viral pneumonia. Negative for mycoplasma or flu, empiric rocephin + azithromycin + renal dosed tamiflu Gram pos Gram neg CAP Acute hypoxia - likely 2/2 pneumonia. will use nebs and wean as tolerated RACHEAL - likely vasomotor nephropathy, will hydrate Hematuria - with glucosuria, will culture urine and monitor Dementia - frequent redirection, light during day DM2 - hold metformin and invokana, will place on basal bolus plus insulin while inpatient and with RACHEAL HLD - HTN - History of Present Illness History of Present Illness agreeable to SNU No complaints Weak Came from home with CT chest done yesterday _ still infiltrates. basal, hazy, consolidative, atelectasis PLAn: COnt IV abx SNU Sw fallr isk DNR Vitals Vitals Vital Signs Date Time Temp Pulse Resp B/P (MAP) Pulse Ox O2 Delivery O2 Flow Rate FiO2 10/15/19 11:39 94 Nasal Cannula 2.0 10/15/19 10:44 19 10/15/19 10:39 97.9 94 138/87 (104) 97.9 Physical Exam General: Alert, Cooperative, mild distress Heart: Regular rate Lungs: Crackles Abdomen: Normal bowel sounds, Soft, No tenderness, No hepatosplenomegaly, No masses Extremities: No clubbing, No cyanosis, No edema, Normal pulses, No ten derness/swelling Skin: No rashes, No breakdown, No significant lesion Labs LABS Laboratory Tests Test 10/14/19 16:52 10/14/19 21:08 10/15/19 03:35 10/15/19 07:29 Glucose (Fingerstick) 162 mg/dL (70-99) 173 mg/dL (70-99) 140 mg/dL (70-99) Creatinine 1.3 mg/dL (0.7-1.3) Estimated GFR (Cockcroft-Gault) 53.7 Test 10/15/19 11:30 Glucose (Fingerstick) 228 mg/dL (70-99) Review of Systems Review of Systems limited historian, dementia Assessment and Plan Assessmemt and Plan Problems Medical Problems: (1) Acute kidney injury Status: Acute (2) CAP (community acquired pneumonia) Status: Acute (3) Dehydration Status: Acute Comment Review of Relevant I have reviewed the following items kuldeep (where applicable) has been applied. Labs Laboratory Tests Test 10/13/19 12:19 10/13/19 15:40 10/13/19 17:06 10/13/19 21:27 Glucose (Fingerstick) 180 mg/dL (70-99) 200 mg/dL (70-99) 209 mg/dL (70-99) White Blood Count 15.4 x10^3/uL (4.0-11.0) Red Blood Count 4.76 x10^6/uL (4.30-5.70) Hemoglobin 14.4 g/dL (13.0-17.5) Hematocrit 44.1 % (39.0-53.0) Mean Corpuscular Volume 93 fL (79-100) Mean Corpuscular Hemoglobin 30 pg (25-35) Mean Corpuscular Hemoglobin Concent 33 g/dL (31-37) Red Cell Distribution Width 13.1 % (11.5-14.5) Platelet Count 192 x10^3/uL (140-400) Neutrophils (%) (Auto) 75 % (31-73) Lymphocytes (%) (Auto) 14 % (24-48) Monocytes (%) (Auto) 10 % (0-9) Eosinophils (%) (Auto) 1 % (0-3) Basophils (%) (Auto) 1 % (0-3) Neutrophils # (Auto) 11.4 x10^3/uL (1.8-7.7) Lymphocytes # (Auto) 2.2 x10^3/uL (1.0-4.8) Monocytes # (Auto) 1.6 x10^3/uL (0.0-1.1) Eosinophils # (Auto) 0.1 x10^3/uL (0.0-0.7) Basophils # (Auto) 0.1 x10^3/uL (0.0-0.2) Sodium Level 135 mmol/L (136-145) Potassium Level 4.0 mmol/L (3.5-5.1) Chloride Level 99 mmol/L (98-107) Carbon Dioxide Level 24 mmol/L (21-32) Anion Gap 12 (6-14) Blood Urea Nitrogen 29 mg/dL (8-26) Creatinine 1.3 mg/dL (0.7-1.3) Estimated GFR (Cockcroft-Gault) 53.7 Glucose Level 252 mg/dL (70-99) Calcium Level 8.7 mg/dL (8.5-10.1) Troponin I Quantitative < 0.017 ng/mL (0.000-0.055) Test 10/14/19 05:20 10/14/19 07:47 10/14/19 11:51 10/14/19 16:52 White Blood Count 10.9 x10^3/uL (4.0-11.0) Red Blood Count 4.85 x10^6/uL (4.30-5.70) Hemoglobin 14.7 g/dL (13.0-17.5) Hematocrit 44.9 % (39.0-53.0) Mean Corpuscular Volume 93 fL (79-100) Mean Corpuscular Hemoglobin 30 pg (25-35) Mean Corpuscular Hemoglobin Concent 33 g/dL (31-37) Red Cell Distribution Width 13.2 % (11.5-14.5) Platelet Count 190 x10^3/uL (140-400) Neutrophils (%) (Auto) 71 % (31-73) Lymphocytes (%) (Auto) 17 % (24-48) Monocytes (%) (Auto) 10 % (0-9) Eosinophils (%) (Auto) 2 % (0-3) Basophils (%) (Auto) 1 % (0-3) Neutrophils # (Auto) 7.8 x10^3/uL (1.8-7.7) Lymphocytes # (Auto) 1.8 x10^3/uL (1.0-4.8) Monocytes # (Auto) 1.1 x10^3/uL (0.0-1.1) Eosinophils # (Auto) 0.2 x10^3/uL (0.0-0.7) Basophils # (Auto) 0.1 x10^3/uL (0.0-0.2) Sodium Level 138 mmol/L (136-145) Potassium Level 4.3 mmol/L (3.5-5.1) Chloride Level 101 mmol/L (98-107) Carbon Dioxide Level 26 mmol/L (21-32) Anion Gap 11 (6-14) Blood Urea Nitrogen 25 mg/dL (8-26) Creatinine 1.3 mg/dL (0.7-1.3) Estimated GFR (Cockcroft-Gault) 53.7 Glucose Level 152 mg/dL (70-99) Calcium Level 9.0 mg/dL (8.5-10.1) Troponin I Quantitative < 0.017 ng/mL (0.000-0.055) Glucose (Fingerstick) 148 mg/dL (70-99) 225 mg/dL (70-99) 162 mg/dL (70-99) Test 10/14/19 21:08 10/15/19 03:35 10/15/19 07:29 10/15/19 11:30 Glucose (Fingerstick) 173 mg/dL (70-99) 140 mg/dL (70-99) 228 mg/dL (70-99) Creatinine 1.3 mg/dL (0.7-1.3) Estimated GFR (Cockcroft-Gault) 53.7 Laboratory Tests Test 10/14/19 16:52 10/14/19 21:08 10/15/19 03:35 10/15/19 07:29 Glucose (Fingerstick) 162 mg/dL (70-99) 173 mg/dL (70-99) 140 mg/dL (70-99) Creatinine 1.3 mg/dL (0.7-1.3) Estimated GFR (Cockcroft-Gault) 53.7 Test 10/15/19 11:30 Glucose (Fingerstick) 228 mg/dL (70-99) Microbiology 10/11/19 Urine Culture - Final, Complete 10/11/19 Urine Culture Result 1 (MARCI) - Final, Complete 10/11/19 Blood Culture - Final, Complete Medications Current Medications Albuterol/ Ipratropium (Duoneb) 3 ml 1X ONCE NEB Last administered on 10/11/19at 16:02; Start 10/11/19 at 16:00; Stop 10/11/19 at 16:01; Status DC Sodium Chloride 1,000 ml @ 1,000 mls/hr 1X ONCE IV Last administered on 10/11/19at 17:24; Start 10/11/19 at 17:15; Stop 10/11/19 at 18:14; Status DC Ceftriaxone Sodium (Rocephin) 1 gm 1X ONCE IVP Last administered on 10/11/19 17:24; Start 10/11/19 at 17:15; Stop 10/11/19 at 17:18; Status DC Azithromycin (Zithromax) 500 mg 1X ONCE PO Last administered on 10/11/19 17:24; Start 10/11/19 at 17:15; Stop 10/11/19 at 17:18; Status DC Ondansetron HCl (Zofran) 4 mg PRN Q8HRS PRN IV NAUSEA/VOMITING; Start 10/11/19 at 17:30; Stop 10/12/19 at 17:29; Status DC Morphine Sulfate (Morphine Sulfate) 2 mg PRN Q2HR PRN IV PAIN Last administered on 10/12/19 08:55; Start 10/11/19 at 17:30; Stop 10/12/19 at 17:29; Status DC Sodium Chloride 1,000 ml @ 125 mls/hr Q8H IV ; Start 10/11/19 at 17:18; Stop 10/12/19 at 10:22; Status DC Acetaminophen (Tylenol) 650 mg PRN Q4HRS PRN PO FEVER Last administered on 10/12/19 08:23; Start 10/11/19 at 17:30; Stop 10/12/19 at 17:29; Status DC Albuterol/ Ipratropium (Duoneb) 3 ml RTQID NEB Last administered on 10/12/19 15:36; Start 10/11/19 at 20:00; Stop 10/12/19 at 19:59; Status DC Aspirin (Ecotrin) 81 mg DAILY PO Last administered on 10/15/19at 09:41; Start 10/12/19 at 09:00 Atorvastatin Calcium (Lipitor) 20 mg QHS PO Last administered on 10/14/19at 21:26; Start 10/11/19 at 21:00 Heparin Sodium (Porcine) (Heparin Sodium) 5,000 unit Q8HRS SQ Last administered on 10/15/19 05:43; Start 10/11/19 at 22:00 Ceftriaxone Sodium (Rocephin) 1 gm Q24H IVP Last administered on 10/14/19at 10:58; Start 10/12/19 at 11:30 Azithromycin 500 mg/Sodium Chloride 250 ml @ 250 mls/hr Q24H IV Last administered on 10/15/19 10:45; Start 10/12/19 at 10:30 Insulin Glargine (Lantus Syringe) 5 unit QHS SQ Last administered on 10/14/19 21:33; Start 10/11/19 at 22:00 Insulin Human Lispro (HumaLOG) 0-5 UNITS TIDACHC SQ Last administered on 10/14/19 17:02; Start 10/11/19 at 22:00 Dextrose (Dextrose 50%-Water Syringe) 12.5 gm PRN Q15MIN PRN IV SEE COMMENTS; Start 10/11/19 at 21:30 Oseltamivir Phosphate (Tamiflu) 30 mg DAILY PO Last administered on 10/15/19 09:41; Start 10/12/19 at 10:30; Stop 10/17/19 at 10:29 Polyethylene Glycol (miraLAX PACKET) 17 gm DAILY PO Last administered on 10/14/19 08:40; Start 10/12/19 at 12:00; Stop 10/14/19 at 10:44; Status DC Psyllium Hydrophilic Mucilloid (Metamucil Fiber Packet) 1 pkt DAILY PO Last administered on 10/15/19 09:41; Start 10/12/19 at 12:00 Docusate Sodium (Colace) 100 mg BID PO Last administered on 10/15/19 09:41; Start 10/12/19 at 11:45 Lactobacillus Rhamnosus (Culturelle) 1 cap BID PO Last administered on 10/15/19 09:41; Start 10/12/19 at 21:00 Acetaminophen/ Hydrocodone Bitart (Lortab 5/325) 1 tab PRN Q4HRS PRN PO PAIN Last administered on 10/14/19 08:40; Start 10/13/19 at 07:00; Stop 10/14/19 at 10:51; Status DC Albuterol/ Ipratropium (Duoneb) 3 ml RTQID NEB Last administered on 10/15/19 11:38; Start 10/13/19 at 12:00 Albuterol/ Ipratropium (Duoneb) 3 ml 1X ONCE NEB Last administered on 10/13/19 08:52; Start 10/13/19 at 08:45; Stop 10/13/19 at 08:46; Status DC Budesonide (Pulmicort) 0.5 mg RTBID NEB Last administered on 10/15/19 07:14; Start 10/13/19 at 20:00 Budesonide (Pulmicort) 0.5 mg 1X ONCE NEB Last administered on 10/13/19 08:52; Start 10/13/19 at 08:45; Stop 10/13/19 at 08:46; Status DC Aspirin (Children'S Aspirin) 324 mg 1X ONCE PO Last administered on 10/13/19at 15:17; Start 10/13/19 at 15:15; Stop 10/13/19 at 15:16; Status DC Nitroglycerin (Nitrostat) 0.4 mg PRN Q5MIN PRN SL CHEST PAIN Last administered on 10/13/19 15:19; Start 10/13/19 at 15:15 Lidocaine (Lidoderm) 1 patch DAILY TD Last administered on 10/15/19at 09:45; Start 10/13/19 at 15:30 Miscellaneous (Lidoderm Patch Removal) 1 ea QHS MC Last administered on 10/14/19at 21:00; Start 10/13/19 at 21:00 Lorazepam (Ativan Inj) 0.5 mg 1X ONCE IVP ; Start 10/13/19 at 21:15; Stop 10/13/19 at 21:16; Status DC Ketorolac Tromethamine (Toradol 30mg Vial) 30 mg 1X ONCE IVP Last administered on 10/14/19at 10:57; Start 10/14/19 at 10:45; Stop 10/14/19 at 10:46; Status DC Polyethylene Glycol (miraLAX PACKET) 17 gm BID PO Last administered on 10/15/19at 09:41; Start 10/14/19 at 10:45 Magnesium Hydroxide (Milk Of Magnesia) 2,400 mg 1X ONCE PO Last administered on 10/14/19at 10:58; Start 10/14/19 at 10:45; Stop 10/14/19 at 10:46; Status DC Magnesium Hydroxide (Milk Of Magnesia) 2,400 mg PRN DAILY PRN PO CONSTIPATION; Start 10/14/19 at 10:45 Bisacodyl (Dulcolax Supp) 10 mg PRN DAILY PRN UT CONSTIPATION Last administered on 10/14/19at 16:51; Start 10/14/19 at 10:45 Acetaminophen/ Hydrocodone Bitart (Lortab 10/325) 1 tab PRN Q4HRS PRN PO MODERATE TO SEVERE PAIN Last administered on 10/15/19at 10:44; Start 10/14/19 at 11:00 Vancomycin HCl (Vanco Per Pharmacy) 1 each PRN DAILY PRN MC SEE COMMENTS Last administered on 10/14/19at 13:20; Start 10/14/19 at 13:15 Vancomycin HCl 1.75 gm/Sodium Chloride 500 ml @ 250 mls/hr 1X ONCE IV Last administered on 10/14/19at 14:24; Start 10/14/19 at 14:00; Stop 10/14/19 at 15:59; Status DC Vancomycin HCl 1.25 gm/Sodium Chloride 250 ml @ 167 mls/hr Q24H IV ; Start 10/15/19 at 14:00 Vancomycin HCl (Vancomycin Trough Level) 1 each 1X ONCE MC ; Start 10/16/19 at 13:30; Stop 10/16/19 at 13:31 Ondansetron HCl (Zofran) 4 mg PRN Q6HRS PRN IVP NAUSEA/VOMITING; Start 10/15/19 at 10:00 Guaifenesin (Robitussin Dm) 10 ml PRN Q6HRS PRN PO COUGH; Start 10/15/19 at 10:00 Benzonatate (Tessalon Perle) 100 mg [id number] PO Last administered on 10/15/19at 10:44; Start 10/15/19 at 10:00 Active Scripts Active Hydrocodone-Apap 5-325 (Hydrocodone Bit/Acetaminophen) 1 Tab Tablet 1 Tab PO PRN Q4HRS PRN 7 Days Reported Januvia (Sitagliptin Phosphate) 100 Mg Tablet 1 Tab PO DAILY Aspir-Low (Aspirin) 81 Mg Tablet.dr 1 Tab PO DAILY Metformin Hcl Er (Metformin Hcl) 1,000 Mg Tab.er.24 1,000 Mg PO BID Lisinopril 10 Mg Tablet 1 Tab PO DAILY Trulicity (Dulaglutide) 0.75 Mg/0.5 Ml Pen.injctr 0.75 Mg SQ WEEKLY Invokana (Canagliflozin) 300 Mg Tablet 300 Mg PO DAILY Atorvastatin Calcium 20 Mg Tablet 20 Mg PO DAILY Vitals/I & O Vital Sign - Last 24 Hours 10/14/19 10/14/19 10/14/19 10/14/19 15:59 16:02 19:00 19:53 Temp 98.1 97.4 98.1 97.4 Pulse 93 81 Resp 20 18 B/P (MAP) 143/52 (82) 115/71 (86) Pulse Ox 97 98 99 O2 Delivery Room Air Nasal Cannula Room Air Nasal Cannula O2 Flow Rate 2.0 2.0 1.0 10/14/19 10/14/19 10/15/19 10/15/19 20:00 23:00 03:00 07:00 Temp 98.2 97.5 98.0 98.2 97.5 98.0 Pulse 83 74 68 Resp 19 18 18 B/P (MAP) 129/83 (98) 137/77 (97) 117/66 (83) Pulse Ox 97 94 95 O2 Delivery Nasal Cannula Nasal Cannula Nasal Cannula Nasal Cannula O2 Flow Rate 2.0 2.0 2.0 2.0 10/15/19 10/15/19 10/15/19 10/15/19 07:16 08:00 10:39 10:44 Temp 97.9 97.9 Pulse 94 Resp 18 19 B/P (MAP) 138/87 (104) Pulse Ox 95 95 93 O2 Delivery Nasal Cannula Nasal Cannula Nasal Cannula Nasal Cannula O2 Flow Rate 1.0 2.0 2.0 2.0 10/15/19 11:39 Pulse Ox 94 O2 Delivery Nasal Cannula O2 Flow Rate 2.0 Intake and Output 10/14/19 10/14/19 10/15/19 15:00 23:00 07:00 Intake Total 250 ml 820 ml 350 ml Balance 250 ml 820 ml 350 ml KEY BARON MD Oct 15, 2019 12:02
--- NOTE | 2019-10-15 13:33 | NUR ---
SW following for discharge planning. Chart reviewed, discussed with RN. Pt is from home with / family. PT/OT recommending SNU. SW contactd pt's , Brie ([phone]), she is agreeable to SNU, and wanted to speak with her sister regarding facilities. Pt is alert and oriented x1-2. SW will continue to follow for discharge planning.
[2019-10-15] MEDS: VANCOMYCIN PER PHARMACY MC PRN (14:21)
[2019-10-15 14:48] VITALS: BP 122/79
[2019-10-15] MEDS: VANCOMYCIN 1.25 GM in IV NORMAL SALINE 250ML 250 ML IV SCH (17:09)
[2019-10-15 19:00] VITALS: BP 141/84
[2019-10-15] MEDS: ATORVASTATIN CALCIUM 20 MG TABLET PO SCH (20:33)
[2019-10-15] MEDS: INSULIN GLARGINE SYRINGE. SQ SCH (20:40)
[2019-10-15] MEDS: PATCH REMOVAL. MC SCH (20:40)
[2019-10-15 23:00] VITALS: BP 118/84
[2019-10-16 03:00] VITALS: BP 130/85
[2019-10-16] MEDS: HEPARIN for SUB-Q USE 5,000 UNIT/ML VIAL. SQ SCH ×3 (05:37→21:27)
[2019-10-16 06:24] LABS: CREATININE 1.2 mg/dL (0.7-1.3); GFR 58.9
[2019-10-16 07:00] VITALS: BP 171/101
[2019-10-16] MEDS: BUDESONIDE 0.5 MG/2 ML NEBU. NEB SCH ×2 (07:11→20:07)
[2019-10-16] MEDS: IPRATRPIUM/ALBUTEROL 0.5/2.5MG 3 ML NEBU. NEB SCH ×4 (07:11→20:00)
--- NOTE | 2019-10-16 08:19 | PDOC ---
PULMONARY PROGRESS NOTES Subjective PT SOA WITH TALKING APPEARS ANXIUOS AT TIMES Vitals Vital Signs Date Time Temp Pulse Resp B/P (MAP) Pulse Ox O2 Delivery O2 Flow Rate FiO2 10/16/19 07:11 92 Nasal Cannula 2.0 10/16/19 07:00 97.8 108 18 171/101 (124) 97.8 ROS: No Nausea, No Chest Pain, No Abdominal Pain, No Increase Cough General: Alert HEENT: Other Lungs: Crackles Cardiovascular: S1, S2 Abdomen: Soft, Non-tender Neuro Exam: Alert Skin: Warm Labs Laboratory Tests Test 10/14/19 11:51 10/14/19 16:52 10/14/19 21:08 10/15/19 03:35 Glucose (Fingerstick) 225 mg/dL (70-99) 162 mg/dL (70-99) 173 mg/dL (70-99) Creatinine 1.3 mg/dL (0.7-1.3) Estimated GFR (Cockcroft-Gault) 53.7 Test 10/15/19 07:29 10/15/19 11:30 10/15/19 16:31 10/15/19 20:55 Glucose (Fingerstick) 140 mg/dL (70-99) 228 mg/dL (70-99) 146 mg/dL (70-99) 170 mg/dL (70-99) Test 10/16/19 05:15 10/16/19 07:04 Creatinine 1.2 mg/dL (0.7-1.3) Estimated GFR (Cockcroft-Gault) 58.9 Glucose (Fingerstick) 161 mg/dL (70-99) Laboratory Tests Test 10/15/19 11:30 10/15/19 16:31 10/15/19 20:55 10/16/19 05:15 Glucose (Fingerstick) 228 mg/dL (70-99) 146 mg/dL (70-99) 170 mg/dL (70-99) Creatinine 1.2 mg/dL (0.7-1.3) Estimated GFR (Cockcroft-Gault) 58.9 Test 10/16/19 07:04 Glucose (Fingerstick) 161 mg/dL (70-99) Medications Active Scripts Medications Dose Route/Sig Max Daily Dose Days Date Category Hydrocodone-Apap 5-325 (Hydrocodone Bit/Acetaminophen) 1 Tab Tablet 1 Tab PO PRN Q4HRS PRN 7 07/25/19 Rx Januvia (Sitagliptin Phosphate) 100 Mg Tablet 1 Tab PO DAILY 07/18/19 Reported Aspir-Low (Aspirin) 81 Mg Tablet.dr 1 Tab PO DAILY 07/18/19 Reported Metformin Hcl Er (Metformin Hcl) 1,000 Mg Tab.er.24 1,000 Mg PO BID 07/18/19 Reported Lisinopril 10 Mg Tablet 1 Tab PO DAILY 04/04/19 Reported Trulicity (Dulaglutide) 0.75 Mg/0.5 Ml Pen.injctr 0.75 Mg SQ WEEKLY 04/04/19 Reported Invokana (Canagliflozin) 300 Mg Tablet 300 Mg PO DAILY 04/02/19 Reported Atorvastatin Calcium 20 Mg Tablet 20 Mg PO DAILY 04/02/19 Reported Impression . IMPRESSION: 1. Acute respiratory failure MULTIFACTORIAL 2. Abnormal chest x-ray. POSSIBLE PNEUMONIA 3. Acute bronchospasm. 4. Acute bronchitis. 5. Leukocytosis. 6. Chronic kidney disease. 7. Hypertension. 8. Diabetes mellitus. 9. NON SPECIFIC ANXIETY CT CHEST Bibasilar lung consolidation changes likely pneumonia or atelectasis. Follow-up to resolution. There is mild narrowing of the left lower lobe bronchial branches with faint opacities within the left lower lobe bronchial branches could be secretions or opacities. Follow-up to resolution. Plan . ORAL ANTI BX D/C OR TRANSFER TO SNU TODAY O2 NEBS CT REVIEWED ATELECTASIS POSSIBLE PNEUMONIA REPEAT CT IN 2 MONTHS FELA LEE MD Oct 16, 2019 08:19
[2019-10-16] MEDS ORDERED: BENZ-8 PO (08:43)
[2019-10-16] MEDS ORDERED: IPRA3AMP29 NEB (08:43)
[2019-10-16] MEDS ORDERED: HYDR-2761 PO (08:43)
[2019-10-16] MEDS ORDERED: LIDO700A21 TD (08:43)
[2019-10-16] MEDS ORDERED: GUAI5SYR PO (08:43)
[2019-10-16] MEDS ORDERED: LEVO500T59 PO (08:44)
--- NOTE | 2019-10-16 08:45 | SNU/HH DC ---
DISCHARGE ORDERS DISCHARGE INFORMATION: DISCHARGE DATE: Oct 16, 2019 FINAL DIAGNOSIS Problems Medical Problems: (1) Acute kidney injury Status: Acute (2) CAP (community acquired pneumonia) Status: Acute (3) Dehydration Status: Acute CONDITION ON DISCHARGE: Stable CODE STATUS: Code Status: DNR/DNI HALFWAY: SNF STAY <30 DAYS: Yes HOSPICE: HOSPICE: No HOSPICE EVAL & TREAT: No LTAC: ADMIT TO LTAC: No POST DISCHARGE ORDERS: ACTIVITY ORDERS: Activity as tolerated WEIGHT BEARING STATUS: Full weight bearing DIET AFTER DISCHARGE: Regular WOUND/INCISION CARE: Ice to area for comfort CHECKS AFTER DISCHARGE: CHECKS AFTER DISCHARGE: Check blood press - daily FOLLOW-UP: PHYSICIAN FOLLOW-UP: rpt ct chest 2 mos -ff up CAP TREATMENT/EQUIPMENT ORDERS: ADAPTIVE EQUIPMENT NEEDED: None, Front wheeled walker Physical Therapy For: Evalulation/Treatment Occupational Therapy For: Evaluation/Treatment DISCHARGE MEDICATIONS: Home Meds Active Scripts Levofloxacin (LEVAQUIN) 500 Mg Tablet, 1 TAB PO DAILY for cap for 7 Days, #7 TAB 0 Refills Prov:KEY BARON MD 10/16/19 Lidocaine (Lidocaine PATCH ) 1 Each Adh..patch, 1 PATCH TD DAILY for msk pain, #10 PATCH Prov:KEY BARON MD 10/16/19 Guaifenesin/Dextromethorphan (GUAIFENESIN DM SYRUP) 5 Ml Syrup, 10 ML PO PRN Q6HRS PRN for COUGH for 7 Days, MISC Prov:KEY BARON MD 10/16/19 Benzonatate (BENZONATATE) 100 Mg Capsule, 100 MG PO [id number] for cough, #30 CAP Prov:KEY BARON MD 10/16/19 Ipratropium/Albuterol Sulfate (DUONEB 0.5-3(2.5) MG/3 ML) 3 Ml Ampul.neb, 3 ML NEB RTQID for soa, #60 EACH Prov:KEY BARON MD 10/16/19 Hydrocodone Bit/Acetaminophen (HYDROCODONE-APAP 5-325 ) 1 Tab Tablet, 1 TAB PO PRN Q4HRS PRN for MODERATE PAIN 4-6 for 7 Days, #20 TAB Prov:KEY BARON MD 10/16/19 Reported Medications Sitagliptin Phosphate (JANUVIA) 100 Mg Tablet, 1 TAB PO DAILY for diabetes, #30 TAB 5 Refills 07/18/19 Aspirin (ASPIR-LOW) 81 Mg Tablet.dr, 1 TAB PO DAILY for heart health, #30 TAB 3 Refills 07/18/19 Metformin Hcl (METFORMIN HCL ER) 1,000 Mg Tab.er.24, 1000 MG PO BID for ANTI-D IABETIC, TAB 0 Refills 07/18/19 Lisinopril (LISINOPRIL) 10 Mg Tablet, 1 TAB PO DAILY for HTN, #30 TAB 5 Refills 04/04/19 Dulaglutide (Trulicity) 0.75 Mg/0.5 Ml Pen.injctr, 0.75 MG SQ WEEKLY for DM, EACH 04/04/19 Canagliflozin (INVOKANA) 300 Mg Tablet, 300 MG PO DAILY for DM 04/02/19 Atorvastatin Calcium (ATORVASTATIN CALCIUM) 20 Mg Tablet, 20 MG PO DAILY for CHOLESTEROL 04/02/19 KEY BARON MD Oct 16, 2019 08:45
[2019-10-16] MEDS: OSELTAMIVIR 30 MG CAPSULE PO SCH (08:47)
[2019-10-16] MEDS: LACTOBACILLUS RHAMNOSUS GG 1 CAPSULE. PO SCH ×2 (08:47→21:12)
[2019-10-16] MEDS: DOCUSATE SODIUM 100 MG CAPSULE. PO SCH ×2 (08:47→21:13)
[2019-10-16] MEDS: ASPIRIN ENTERIC COATED 81 MG TABLET.DR. PO SCH (08:48)
[2019-10-16] MEDS: POLYETHYLENE GLYCOL 3350 17 GM PACKET. PO SCH ×2 (08:48→21:12)
[2019-10-16] MEDS: PSYLLIUM HUSK (SUGAR FREE) 1 PKT PACKET PO SCH (08:48)
[2019-10-16] MEDS: BENZONATATE 100 MG CAPSULE. PO SCH ×3 (08:48→21:13)
[2019-10-16] MEDS: INSULIN LISPRO 300 UNITS/3 ML VIAL. SQ SCH ×4 (08:52→21:00)
[2019-10-16] MEDS: LIDOCAINE (700MG/PATCH) PATCH. TD SCH (08:52)
--- NOTE | 2019-10-16 09:22 | NUR ---
SW contacted pt's , she would like referral sent to [facility]. Tatiana, [facility] faxing to [facility] for SN[facility] (ph: [phone], fax: [phone]). Awaiting acceptance decision, and insurance auth. JESSICA will continue to follow.
[2019-10-16] MEDS: AZITHROMYCIN 500 MG in IV NORMAL SALINE 250ML 250 ML IV SCH (10:30)
[2019-10-16 10:43] VITALS: BP 161/102
[2019-10-16] MEDS: cefTRIAXone IV Push 1 GM VIAL. IVP SCH (11:19)
--- NOTE | 2019-10-16 11:23 | PDOC ---
PROGRESS NOTES Chief Complaint Chief Complaint Acute encephalopathy - likely toxic from pneumonia, hypoxia Shortness of breath - with bilateral infiltrates, this is a multifocal, likely atypical or viral pneumonia. Negative for mycoplasma or flu, empiric rocephin + azithromycin + renal dosed tamiflu Gram pos Gram neg CAP Acute hypoxia - likely 2/2 pneumonia. will use nebs and wean as tolerated RACHEAL - likely vasomotor nephropathy, will hydrate Hematuria - with glucosuria, will culture urine and monitor Dementia - frequent redirection, light during day DM2 - hold metformin and invokana, will place on basal bolus plus insulin while inpatient and with RACEHAL HLD - HTN - History of Present Illness History of Present Illness agreeable to SNU No complaints Weak Came from home with CT chest done yesterday _ still infiltrates. basal, hazy, consolidative, atelectasis - rpt CT 2 mos per pulmo Cleared by pulmo to dc to SNU Dw case mx and SW- dc tmr, will take time insurance auth etc PLAn: COnt IV abx SNU Sw tmr fallr isk DNR dc tmr SNU Vitals Vitals Vital Signs Date Time Temp Pulse Resp B/P (MAP) Pulse Ox O2 Delivery O2 Flow Rate FiO2 10/16/19 10:43 97.8 116 18 161/102 (121) 93 Nasal Cannula 2.0 97.8 Physical Exam General: Alert, Cooperative, mild distress Heart: Regular rate Lungs: Crackles Abdomen: Normal bowel sounds, Soft, No tenderness, No hepatosplenomegaly, No masses Extremities: No clubbing, No cyanosis, No edema, Normal pulses, No tenderness/swelling Skin: No rashes, No breakdown, No significant lesion Labs LABS Laboratory Tests Test 10/15/19 11:30 10/15/19 16:31 10/15/19 20:55 10/16/19 05:15 Glucose (Fingerstick) 228 mg/dL (70-99) 146 mg/dL (70-99) 170 mg/dL (70-99) Creatinine 1.2 mg/dL (0.7-1.3) Estimated GFR (Cockcroft-Gault) 58.9 Test 10/16/19 07:04 Glucose (Fingerstick) 161 mg/dL (70-99) Review of Systems Review of Systems weak, no inc in soa, no cp, no fevers Assessment and Plan Assessmemt and Plan Problems Medical Problems: (1) Acute kidney injury Status: Acute (2) CAP (community acquired pneumonia) Status: Acute (3) Dehydration Status: Acute Comment Review of Relevant I have reviewed the following items kuldeep (where applicable) has been applied. Labs Laboratory Tests Test 10/14/19 11:51 10/14/19 16:52 10/14/19 21:08 10/15/19 03:35 Glucose (Fingerstick) 225 mg/dL (70-99) 162 mg/dL (70-99) 173 mg/dL (70-99) Creatinine 1.3 mg/dL (0.7-1.3) Estimated GFR (Cockcroft-Gault) 53.7 Test 10/15/19 07:29 10/15/19 11:30 10/15/19 16:31 10/15/19 20:55 Glucose (Fingerstick) 140 mg/dL (70-99) 228 mg/dL (70-99) 146 mg/dL (70-99) 170 mg/dL (70-99) Test 10/16/19 05:15 10/16/19 07:04 Creatinine 1.2 mg/dL (0.7-1.3) Estimated GFR (Cockcroft-Gault) 58.9 Glucose (Fingerstick) 161 mg/dL (70-99) Laboratory Tests Test 10/15/19 11:30 10/15/19 16:31 10/15/19 20:55 10/16/19 05:15 Glucose (Fingerstick) 228 mg/dL (70-99) 146 mg/dL (70-99) 170 mg/dL (70-99) Creatinine 1.2 mg/dL (0.7-1.3) Estimated GFR (Cockcroft-Gault) 58.9 Test 10/16/19 07:04 Glucose (Fingerstick) 161 mg/dL (70-99) Microbiology 10/11/19 Urine Culture - Final, Complete 10/11/19 Urine Culture Result 1 (MARCI) - Final, Complete 10/11/19 Blood Culture - Preliminary, Resulted 10/11/19 Blood Culture Result 1 (MARCI) - Preliminary, Resulted Medications Current Medications Albuterol/ Ipratropium (Duoneb) 3 ml 1X ONCE NEB Last administered on 10/11/19at 16:02; Start 10/11/19 at 16:00; Stop 10/11/19 at 16:01; Status DC Sodium Chloride 1,000 ml @ 1,000 mls/hr 1X ONCE IV Last administered on 10/11/19at 17:24; Start 10/11/19 at 17:15; Stop 10/11/19 at 18:14; Status DC Ceftriaxone Sodium (Rocephin) 1 gm 1X ONCE IVP Last administered on 10/11/19at 17:24; Start 10/11/19 at 17:15; Stop 10/11/19 at 17:18; Status DC Azithromycin (Zithromax) 500 mg 1X ONCE PO Last administered on 10/11/19at 17:24; Start 10/11/19 at 17:15; Stop 10/11/19 at 17:18; Status DC Ondansetron HCl (Zofran) 4 mg PRN Q8HRS PRN IV NAUSEA/VOMITING; Start 10/11/19 at 17:30; Stop 10/12/19 at 17:29; Status DC Morphine Sulfate (Morphine Sulfate) 2 mg PRN Q2HR PRN IV PAIN Last administered on 10/12/19at 08:55; Start 10/11/19 at 17:30; Stop 10/12/19 at 17:29; Status DC Sodium Chloride 1,000 ml @ 125 mls/hr Q8H IV ; Start 10/11/19 at 17:18; Stop 10/12/19 at 10:22; Status DC Acetaminophen (Tylenol) 650 mg PRN Q4HRS PRN PO FEVER Last administered on 10/12/19at 08:23; Start 10/11/19 at 17:30; Stop 10/12/19 at 17:29; Status DC Albuterol/ Ipratropium (Duoneb) 3 ml RTQID NEB Last administered on 10/12/19at 15:36; Start 10/11/19 at 20:00; Stop 10/12/19 at 19:59; Status DC Aspirin (Ecotrin) 81 mg DAILY PO Last administered on 10/16/19at 08:48; Start 10/12/19 at 09:00 Atorvastatin Calcium (Lipitor) 20 mg QHS PO Last administered on 10/15/19at 20:33; Start 10/11/19 at 21:00 Heparin Sodium (Porcine) (Heparin Sodium) 5,000 unit Q8HRS SQ Last administered on 10/16/19 05:37; Start 10/11/19 at 22:00 Ceftriaxone Sodium (Rocephin) 1 gm Q24H IVP Last administered on 10/15/19 11:30; Start 10/12/19 at 11:30 Azithromycin 500 mg/Sodium Chloride 250 ml @ 250 mls/hr Q24H IV Last administered on 10/15/19at 10:45; Start 10/12/19 at 10:30 Insulin Glargine (Lantus Syringe) 5 unit QHS SQ Last administered on 10/15/19 20:40; Start 10/11/19 at 22:00 Insulin Human Lispro (HumaLOG) 0-5 UNITS TIDACHC SQ Last administered on 10/16/19 08:52; Start 10/11/19 at 22:00 Dextrose (Dextrose 50%-Water Syringe) 12.5 gm PRN Q15MIN PRN IV SEE COMMENTS; Start 10/11/19 at 21:30 Oseltamivir Phosphate (Tamiflu) 30 mg DAILY PO Last administered on 10/16/19 08:47; Start 10/12/19 at 10:30; Stop 10/17/19 at 10:29 Polyethylene Glycol (miraLAX PACKET) 17 gm DAILY PO Last administered on 10/14/19 08:40; Start 10/12/19 at 12:00; Stop 10/14/19 at 10:44; Status DC Psyllium Hydrophilic Mucilloid (Metamucil Fiber Packet) 1 pkt DAILY PO Last administered on 10/16/19at 08:48; Start 10/12/19 at 12:00 Docusate Sodium (Colace) 100 mg BID PO Last administered on 10/16/19 08:47; Start 10/12/19 at 11:45 Lactobacillus Rhamnosus (Culturelle) 1 cap BID PO Last administered on 10/16/19 08:47; Start 10/12/19 at 21:00 Acetaminophen/ Hydrocodone Bitart (Lortab 5/325) 1 tab PRN Q4HRS PRN PO PAIN Last administered on 10/14/19 08:40; Start 10/13/19 at 07:00; Stop 10/14/19 at 10:51; Status DC Albuterol/ Ipratropium (Duoneb) 3 ml RTQID NEB Last administered on 10/16/19at 07:11; Start 10/13/19 at 12:00 Albuterol/ Ipratropium (Duoneb) 3 ml 1X ONCE NEB Last administered on 10/13/19at 08:52; Start 10/13/19 at 08:45; Stop 10/13/19 at 08:46; Status DC Budesonide (Pulmicort) 0.5 mg RTBID NEB Last administered on 10/16/19at 07:11; Start 10/13/19 at 20:00 Budesonide (Pulmicort) 0.5 mg 1X ONCE NEB Last administered on 10/13/19 08:52; Start 10/13/19 at 08:45; Stop 10/13/19 at 08:46; Status DC Aspirin (Children'S Aspirin) 324 mg 1X ONCE PO Last administered on 10/13/19at 15:17; Start 10/13/19 at 15:15; Stop 10/13/19 at 15:16; Status DC Nitroglycerin (Nitrostat) 0.4 mg PRN Q5MIN PRN SL CHEST PAIN Last administered on 10/13/19at 15:19; Start 10/13/19 at 15:15 Lidocaine (Lidoderm) 1 patch DAILY TD Last administered on 10/15/19at 09:45; Start 10/13/19 at 15:30 Miscellaneous (Lidoderm Patch Removal) 1 ea QHS MC Last administered on 10/15/19at 20:40; Start 10/13/19 at 21:00 Lorazepam (Ativan Inj) 0.5 mg 1X ONCE IVP ; Start 10/13/19 at 21:15; Stop 10/13/19 at 21:16; Status DC Ketorolac Tromethamine (Toradol 30mg Vial) 30 mg 1X ONCE IVP Last administered on 10/14/19at 10:57; Start 10/14/19 at 10:45; Stop 10/14/19 at 10:46; Status DC Polyethylene Glycol (miraLAX PACKET) 17 gm BID PO Last administered on 10/16/19at 08:48; Start 10/14/19 at 10:45 Magnesium Hydroxide (Milk Of Magnesia) 2,400 mg 1X ONCE PO Last administered on 10/14/19at 10:58; Start 10/14/19 at 10:45; Stop 10/14/19 at 10:46; Status DC Magnesium Hydroxide (Milk Of Magnesia) 2,400 mg PRN DAILY PRN PO CONSTIPATION; Start 10/14/19 at 10:45 Bisacodyl (Dulcolax Supp) 10 mg PRN DAILY PRN MI CONSTIPATION Last administered on 10/14/19at 16:51; Start 10/14/19 at 10:45 Acetaminophen/ Hydrocodone Bitart (Lortab 10325) 1 tab PRN Q4HRS PRN PO MODERATE TO SEVERE PAIN Last administered on 10/15/19at 20:34; Start 10/14/19 at 11:00 Vancomycin HCl (Vanco Per Pharmacy) 1 each PRN DAILY PRN MC SEE COMMENTS Last administered on 10/15/19at 14:21; Start 10/14/19 at 13:15 Vancomycin HCl 1.75 gm/Sodium Chloride 500 ml @ 250 mls/hr 1X ONCE IV Last administered on 10/14/19at 14:24; Start 10/14/19 at 14:00; Stop 10/14/19 at 15:59; Status DC Vancomycin HCl 1.25 gm/Sodium Chloride 250 ml @ 167 mls/hr Q24H IV Last administered on 10/15/19at 17:09; Start 10/15/19 at 14:00 Vancomycin HCl (Vancomycin Trough Level) 1 each 1X ONCE MC ; Start 10/16/19 at 13:30; Stop 10/16/19 at 13:31 Ondansetron HCl (Zofran) 4 mg PRN Q6HRS PRN IVP NAUSEA/VOMITING; Start 10/15/19 at 10:00 Guaifenesin (Robitussin Dm) 10 ml PRN Q6HRS PRN PO COUGH; Start 10/15/19 at 10:00 Benzonatate (Tessalon Perle) 100 mg [id number] PO Last administered on 10/16/19at 08:48; Start 10/15/19 at 10:00 Active Scripts Active Levaquin (Levofloxacin) 500 Mg Tablet 1 Tab PO DAILY 7 Days Lidocaine PATCH (Lidocaine) 1 Each Adh..patch 1 Patch TD DAILY Guaifenesin Dm Syrup (Guaifenesin/Dextromethorphan) 5 Ml Syrup 10 Ml PO PRN Q6HRS PRN 7 Days Benzonatate 100 Mg Capsule 100 Mg PO [id number] Duoneb 0.5-3(2.5) Mg/3 Ml (Albuterol/Ipratropium) 3 Ml Ampul.neb 3 Ml NEB RTQID Hydrocodone-Apap 5-325 (Hydrocodone Bit/Acetaminophen) 1 Tab Tablet 1 Tab PO PRN Q4HRS PRN 7 Days Reported Januvia (Sitagliptin Phosphate) 100 Mg Tablet 1 Tab PO DAILY Aspir-Low (Aspirin) 81 Mg Tablet.dr 1 Tab PO DAILY Metformin Hcl Er (Metformin Hcl) 1,000 Mg Tab.er.24 1,000 Mg PO BID Lisinopril 10 Mg Tablet 1 Tab PO DAILY Trulicity (Dulaglutide) 0.75 Mg/0.5 Ml Pen.injctr 0.75 Mg SQ WEEKLY Invokana (Canagliflozin) 300 Mg Tablet 300 Mg PO DAILY Atorvastatin Calcium 20 Mg Tablet 20 Mg PO DAILY Vitals/I & O Vital Sign - Last 24 Hours 10/15/19 10/15/19 10/15/19 10/15/19 11:39 14:48 15:07 19:00 Temp 97.9 98.2 97.9 98.2 Pulse 85 97 Resp 18 18 B/P (MAP) 122/79 (93) 141/84 (103) Pulse Ox 94 95 94 97 O2 Delivery Nasal Cannula Nasal Cannula Nasal Cannula O2 Flow Rate 2.0 2.0 2.0 10/15/19 10/15/19 10/15/19 10/15/19 19:15 20:18 20:34 21:30 Resp 20 19 Pulse Ox 97 97 O2 Delivery Nasal Cannula Nasal Cannula Nasal Cannula Nasal Cannula O2 Flow Rate 2.0 2.0 2.0 2.0 10/15/19 10/16/19 10/16/19 10/16/19 23:00 03:00 07:00 07:11 Temp 97.9 97.6 97.8 97.9 97.6 97.8 Pulse 99 83 108 Resp 18 18 18 B/P (MAP) 118/84 (95) 130/85 (100) 171/101 (124) Pulse Ox 94 92 93 92 O2 Delivery Nasal Cannula Nasal Cannula O2 Flow Rate 2.0 2.0 12/17/19 10:43 Temp 97.8 97.8 Pulse 116 Resp 18 B/P (MAP) 161/102 (121) Pulse Ox 93 O2 Delivery Nasal Cannula O2 Flow Rate 2.0 Intake and Output 10/15/19 10/15/19 10/16/19 15:00 23:00 07:00 Intake Total 600 ml 910 ml Output Total 400 ml Balance 200 ml 910 ml KEY BARON MD Oct 16, 2019 11:23
[2019-10-16 14:03] LABS: VANC TR 8.6 mcg/mL (10.0-20.0)
[2019-10-16] MEDS: VANCOMYCIN PER PHARMACY MC PRN (14:25)
--- NOTE | 2019-10-16 14:27 | NUR ---
Pharmacy Vancomycin Dosing Note S: Consulted to monitor and dose vancomycin started 10/14/19. O: BURAK GÓMEZ is a 74 year old M with Bacteremia Other Antibiotics: ZITHROMAX ROCEPHIN LABS: Last BUN: 25 Last Creatinine: 1.2 Creatinine Clearance: 61 mL/min Last WBC: 10.9 Last Procalcitonin: Tmax (past 24 hours): 97.9 Microbiology: 10/11 Blood: COAG NEG STAPH I/O: 1510/400 Drug Levels: Last Trough level: 8.6 on 10/16/19 at 1330 Last dose given 10/15/19 at 1709 Vancomycin Dosing: Dosing Weight: Actual Target Trough: 15-20 A: Based on: trough P: 1. Change Vancomycin to 1250 mg IV q12h 2. Follow up Trough level as needed 3. Pharmacy will continue to monitor, follow and adjust therapy as needed. Sulma Medina RPH, 10/16/19 1575
[2019-10-16] MEDS: VANCOMYCIN 1.25 GM in IV NORMAL SALINE 250ML 250 ML IV SCH (14:46)
[2019-10-16 15:00] VITALS: BP 159/98
[2019-10-16 19:00] VITALS: BP 129/77
[2019-10-16] MEDS: PATCH REMOVAL. MC SCH (21:00)
[2019-10-16] MEDS: ATORVASTATIN CALCIUM 20 MG TABLET PO SCH (21:12)
[2019-10-16] MEDS: INSULIN GLARGINE SYRINGE. SQ SCH (21:27)
[2019-10-16 23:00] VITALS: BP 135/73
[2019-10-17] MEDS: VANCOMYCIN 1.25 GM in IV NORMAL SALINE 250ML 250 ML IV SCH ×2 (02:02→14:32)
[2019-10-17 03:00] VITALS: BP 143/83
[2019-10-17] MEDS: HEPARIN for SUB-Q USE 5,000 UNIT/ML VIAL. SQ SCH ×2 (06:22→14:34)
[2019-10-17 07:00] VITALS: BP 144/66
[2019-10-17] MEDS: IPRATRPIUM/ALBUTEROL 0.5/2.5MG 3 ML NEBU. NEB SCH ×3 (07:05→15:01)
[2019-10-17] MEDS: BUDESONIDE 0.5 MG/2 ML NEBU. NEB SCH (07:05)
[2019-10-17] MEDS: INSULIN LISPRO 300 UNITS/3 ML VIAL. SQ SCH ×3 (07:30→16:30)
--- NOTE | 2019-10-17 08:42 | PDOC ---
PULMONARY PROGRESS NOTES Subjective PT SOA WITH TALKING APPEARS ANXIUOS AT TIMES Vitals Vital Signs Date Time Temp Pulse Resp B/P (MAP) Pulse Ox O2 Delivery O2 Flow Rate FiO2 10/17/19 07:06 92 Nasal Cannula 2.0 10/17/19 07:00 97.4 79 18 144/66 (92) 97.4 ROS: No Nausea, No Chest Pain, No Abdominal Pain, No Increase Cough General: Alert HEENT: Other Lungs: Crackles Cardiovascular: S1, S2 Abdomen: Soft, Non-tender Neuro Exam: Alert Skin: Warm Labs Laboratory Tests Test 10/15/19 11:30 10/15/19 16:31 10/15/19 20:55 10/16/19 05:15 Glucose (Fingerstick) 228 mg/dL (70-99) 146 mg/dL (70-99) 170 mg/dL (70-99) Creatinine 1.2 mg/dL (0.7-1.3) Estimated GFR (Cockcroft-Gault) 58.9 Test 10/16/19 07:04 10/16/19 11:38 10/16/19 13:30 10/16/19 16:28 Glucose (Fingerstick) 161 mg/dL (70-99) 170 mg/dL (70-99) 120 mg/dL (70-99) Vancomycin Level Trough 8.6 mcg/mL (10.0-20.0) Vancomycin Last Dose Date 10/15/19 Vancomycin Last Dose Time 1400 Test 10/16/19 21:04 10/17/19 07:30 Glucose (Fingerstick) 152 mg/dL (70-99) 143 mg/dL (70-99) Laboratory Tests Test 10/16/19 11:38 10/16/19 13:30 10/16/19 16:28 10/16/19 21:04 Glucose (Fingerstick) 170 mg/dL (70-99) 120 mg/dL (70-99) 152 mg/dL (70-99) Vancomycin Level Trough 8.6 mcg/mL (10.0-20.0) Vancomycin Last Dose Date 10/15/19 Vancomycin Last Dose Time 1400 Test 10/17/19 07:30 Glucose (Fingerstick) 143 mg/dL (70-99) Medications Active Scripts Medications Dose Route/Sig Max Daily Dose Days Date Category Hydrocodone-Apap 5-325 (Hydrocodone Bit/Acetaminophen) 1 Tab Tablet 1 Tab PO PRN Q4HRS PRN 7 07/25/19 Rx Januvia (Sitagliptin Phosphate) 100 Mg Tablet 1 Tab PO DAILY 07/18/19 Reported Aspir-Low (Aspirin) 81 Mg Tablet.dr 1 Tab PO DAILY 07/18/19 Reported Metformin Hcl Er (Metformin Hcl) 1,000 Mg Tab.er.24 1,000 Mg PO BID 07/18/19 Reported Lisinopril 10 Mg Tablet 1 Tab PO DAILY 04/04/19 Reported Trulicity (Dulaglutide) 0.75 Mg/0.5 Ml Pen.injctr 0.75 Mg SQ WEEKLY 04/04/19 Reported Invokana (Canagliflozin) 300 Mg Tablet 300 Mg PO DAILY 04/02/19 Reported Atorvastatin Calcium 20 Mg Tablet 20 Mg PO DAILY 04/02/19 Reported Impression . IMPRESSION: 1. Acute respiratory failure MULTIFACTORIAL 2. Abnormal chest x-ray. POSSIBLE PNEUMONIA 3. Acute bronchospasm. 4. Acute bronchitis. 5. Leukocytosis. 6. Chronic kidney disease. 7. Hypertension. 8. Diabetes mellitus. 9. NON SPECIFIC ANXIETY CT CHEST Bibasilar lung consolidation changes likely pneumonia or atelectasis. Follow-up to resolution. There is mild narrowing of the left lower lobe bronchial branches with faint opacities within the left lower lobe bronchial branches could be secretions or opacities. Follow-up to resolution. Plan . D/C OR TRANSFER TO SNU TODAY REPEAT CT IN 2 MONTHS FELA LEE MD Oct 17, 2019 08:42
[2019-10-17] MEDS: LIDOCAINE (700MG/PATCH) PATCH. TD SCH (09:00)
--- NOTE | 2019-10-17 09:23 | PDOC3 ---
Discharge Summary Visit Information Date of Admission: Oct 11, 2019 Date of Discharge: Oct 17, 2019 Admitting Diagnosis Comment: Acute encephalopathy - likely toxic from pneumonia, hypoxia Shortness of breath - with bilateral infiltrates, this is a multifocal, likely atypical or viral pneumonia. Negative for mycoplasma or flu, empiric rocephin + azithromycin + renal dosed tamiflu Gram pos Gram neg CAP Acute hypoxia - likely 2/2 pneumonia. will use nebs and wean as tolerated RACHEAL - likely vasomotor nephropathy, will hydrate Hematuria - with glucosuria, will culture urine and monitor Dementia - frequent redirection, light during day DM2 - hold metformin and invokana, will place on basal bolus plus insulin while inpatient and with RACHEAL HLD - HTN - Final Diagnosis Problems Medical Problems: (1) Acute kidney injury Status: Acute (2) CAP (community acquired pneumonia) Status: Acute (3) Dehydration Status: Acute Brief Hospital Course Allergies Allergies Coded Allergies Type Severity Reaction Last Updated Verified diflorasone Adverse Reaction Intermediate Diarrhea 07/23/19 Yes Vital Signs Vital Signs Date Time Temp Pulse Resp B/P (MAP) Pulse Ox O2 Delivery O2 Flow Rate FiO2 10/17/19 07:06 92 Nasal Cannula 2.0 10/17/19 07:00 97.4 79 18 144/66 (92) 97.4 Lab Results Laboratory Tests Test 10/15/19 11:30 10/15/19 16:31 10/15/19 20:55 10/16/19 05:15 Glucose (Fingerstick) 228 mg/dL (70-99) 146 mg/dL (70-99) 170 mg/dL (70-99) Creatinine 1.2 mg/dL (0.7-1.3) Estimated GFR (Cockcroft-Gault) 58.9 Test 10/16/19 07:04 10/16/19 11:38 10/16/19 13:30 10/16/19 16:28 Glucose (Fingerstick) 161 mg/dL (70-99) 170 mg/dL (70-99) 120 mg/dL (70-99) Vancomycin Level Trough 8.6 mcg/mL (10.0-20.0) Vancomycin Last Dose Date 10/15/19 Vancomycin Last Dose Time 1400 Test 10/16/19 21:04 10/17/19 07:30 Glucose (Fingerstick) 152 mg/dL (70-99) 143 mg/dL (70-99) Laboratory Tests Test 10/16/19 11:38 10/16/19 13:30 10/16/19 16:28 10/16/19 21:04 Glucose (Fingerstick) 170 mg/dL (70-99) 120 mg/dL (70-99) 152 mg/dL (70-99) Vancomycin Level Trough 8.6 mcg/mL (10.0-20.0) Vancomycin Last Dose Date 10/15/19 Vancomycin Last Dose Time 1400 Test 10/17/19 07:30 Glucose (Fingerstick) 143 mg/dL (70-99) Brief Hospital Course Mr. Ghosh is a 74 old whote male with dementia came from home, admitted and treate for CAP, gram pos and gram neg, co managed qwith pulmo, NEeds SNU, DNR, agreeable RPt interval CT chest advised by pulmo. RX onc soraida Greco today Dw Pt seen and examined Discharge Information Condition at Discharge: Improved, Stable Disposition/Orders: Other (snu) Scheduled Aspirin (Aspir-Low) 81 Mg Tablet.dr, 1 TAB PO DAILY for heart health, #30 Ref 3 (Reported) Entered as Reported by: ORTIZ RICE on 07/18/19 1410 Last Action: Continued on 10/11/192123 by GILSON MCDOWELL MD Atorvastatin Calcium (Atorvastatin Calcium) 20 Mg Tablet, 20 MG PO DAILY for CHOLESTEROL, (Reported) Entered as Reported by: ALDAIR GONZALEZ on 04/02/192030 Last Action: Continued on 10/11/192123 by GILSON MCDOWELL MD Benzonatate (Benzonatate) 100 Mg Capsule, 100 MG PO [id number] for cough, #30 Prescribed by: KEY BARON on 10/16/19 0843 Canagliflozin (Invokana) 300 Mg Tablet, 300 MG PO DAILY for DM, (Reported) Entered as Reported by: ALDAIR GONZALEZ on 04/02/192030 Dulaglutide (Trulicity) 0.75 Mg/0.5 Ml Pen.injctr, 0.75 MG SQ WEEKLY for DM, (Reported) Entered as Reported by: DAVID MORALES on 04/04/19 0924 Ipratropium/Albuterol Sulfate (Duoneb 0.5-3(2.5) Mg/3 Ml) 3 Ml Ampul.neb, 3 ML NEB RTQID for soa, #60 Prescribed by: KEY BARON on 10/16/19 0843 Levofloxacin (Levaquin) 500 Mg Tablet, 1 TAB PO DAILY for cap for 7 Days, #7 Ref 0 Prescribed by: KEY BARON on 10/16/19 0844 Lidocaine (Lidocaine PATCH ) 1 Each Adh..patch, 1 PATCH TD DAILY for msk pain, #10 Prescribed by: KEY BARON on 10/16/19 0843 Lisinopril (Lisinopril) 10 Mg Tablet, 1 TAB PO DAILY for HTN, #30 Ref 5 (Reported) Entered as Reported by: DAVID MORALES on 04/04/19 0926 Metformin Hcl (Metformin Hcl Er) 1,000 Mg Tab.er.24, 1,000 MG PO BID for ANTI- DIABETIC, Ref 0 (Reported) Entered as Reported by: ORTIZ RICE on 07/18/19 1409 Sitagliptin Phosphate (Januvia) 100 Mg Tablet, 1 TAB PO DAILY for diabetes, #30 Ref 5 (Reported) Entered as Reported by: ORTIZ RICE on 07/18/19 1411 Scheduled PRN Guaifenesin/Dextromethorphan (Guaifenesin Dm Syrup) 5 Ml Syrup, 10 ML PO PRN Q6HRS PRN for COUGH for 7 Days Prescribed by: KEY BARON on 10/16/19 0843 Hydrocodone Bit/Acetaminophen (Hydrocodone-Apap 5-325 ) 1 Tab Tablet, 1 TAB PO PRN Q4HRS PRN for MODERATE PAIN 4-6 for 7 Days, #20 Prescribed by: KEY BARON on 10/16/19 0843 KEY BARON MD Oct 17, 2019 09:23
[2019-10-17] MEDS: LACTOBACILLUS RHAMNOSUS GG 1 CAPSULE. PO SCH (09:38)
[2019-10-17] MEDS: DOCUSATE SODIUM 100 MG CAPSULE. PO SCH (09:38)
[2019-10-17] MEDS: POLYETHYLENE GLYCOL 3350 17 GM PACKET. PO SCH (09:38)
[2019-10-17] MEDS: BENZONATATE 100 MG CAPSULE. PO SCH ×2 (09:38→14:32)
[2019-10-17] MEDS: OSELTAMIVIR 30 MG CAPSULE PO SCH (09:38)
[2019-10-17] MEDS: PSYLLIUM HUSK (SUGAR FREE) 1 PKT PACKET PO SCH (09:38)
[2019-10-17] MEDS: ASPIRIN ENTERIC COATED 81 MG TABLET.DR. PO SCH (09:38)
[2019-10-17] MEDS: AZITHROMYCIN 500 MG in IV NORMAL SALINE 250ML 250 ML IV SCH (10:30)
[2019-10-17 11:00] VITALS: BP 107/72
[2019-10-17] MEDS: cefTRIAXone IV Push 1 GM VIAL. IVP SCH (11:30)
[2019-10-17] MEDS ORDERED: diphenhydrAMINE HCL 25 MG CAPSULE PO PRN (14:45)
[2019-10-17 15:00] VITALS: BP 138/88
--- NOTE | 2019-10-17 15:44 | NUR ---
SW following. Pt discharging to [facility] today for SNU. Trnasportation set up for 1700. RN notified and is notifying family.
--- NOTE | 2019-10-17 17:40 | NUR ---
Discharge Note: BURAK GÓMEZ Discharge instructions and discharge home medications reviewed with Patient and a copy given. All questions have been answered and understanding verbalized. The following instructions and handouts were given: Discharge Instructions, F/u Apts, Prescriptions. , Brie, notified of patient't transport and time. Discontinued lines and drains: Right PIV removed, Catheter intact. Patient discharged to [facility] with Facility Transport via
== END 2019-10-17 17:46 | DRG 177 ==
LOC: ER 15:42 → 2 SOUTH 17:17 → ER 19:15 → 5 SOUTH 10-12 17:37
PROVIDERS: ADMIT Internal Medicine; ATTEND Internal Medicine
DX: J15.6 Pneumonia due to other Gram-negative bacteria (principal); N17.0 Acute kidney failure with tubular necrosis; G92 Toxic encephalopathy; J96.01 Acute respiratory failure with hypoxia; J98.11 Atelectasis; E11.22 Type 2 diabetes mellitus with diabetic chronic kidney disease; E78.5 Hyperlipidemia, unspecified; E86.0 Dehydration; F03.90 Unspecified dementia, unspecified severity, without behavioral disturbance, psychotic disturbance, mood disturbance, and anxiety; F17.200 Nicotine dependence, unspecified, uncomplicated; F41.9 Anxiety disorder, unspecified; M19.90 Unspecified osteoarthritis, unspecified site; K57.90 Diverticulosis of intestine, part unspecified, without perforation or abscess without bleeding; Z82.49 Family history of ischemic heart disease and other diseases of the circulatory system; I12.9 Hypertensive chronic kidney disease with stage 1 through stage 4 chronic kidney disease, or unspecified chronic kidney disease; J20.9 Acute bronchitis, unspecified; K59.00 Constipation, unspecified; N18.9 Chronic kidney disease, unspecified; Z66 Do not resuscitate; Z79.82 Long term (current) use of aspirin; Z79.84 Long term (current) use of oral hypoglycemic drugs; Z79.899 Other long term (current) drug therapy; Z88.8 Allergy status to other drugs, medicaments and biological substances
CPT/HCPCS: 36415; 36600; 70450; 71045; 71250; 80048; 80053; 80202; 81001; 82140; 82565; 82805; 82962; 83036; 83605; 83735; 83880; 84484; 85007; 85025; 85610; 86738; 87040; 87077; 87086; 87205; 87804; 93005; 94640; 94667; 94668; 94760; 96361; 96374; J0456; J0696; J1644; J1815; J1885; J2270; J3370; J7030; J7040; J7050; J7620; J7626; Q0144; 92526; 92610; 97530; 99285-25; G0378

== ENCOUNTER → 2020-05-20 | Outpatient (CLI) | payer OTHER, MEDICARE ==
[~2020-05-20] MED LIST changes: +BENZ-8 PO; +GUAI5SYR PO; +IPRA3AMP29 NEB; +LEVO500T59 PO; +LIDO700A21 TD; +METF-658 PO; -METF500T11 PO
--- NOTE | 2020-05-20 12:31 | RAD ---
Ankle-brachial indices right lower extremity arterial duplex ultrasound 05/20/2020 INDICATION: Nonhealing right plantar foot wound COMPARISON STUDY: None TECHNIQUE: Ultrasound evaluation of the major arteries of the right lower extremity was performed including color Doppler imaging spectral analysis. The pressure measurements were also obtained at the brachial arteries and ankles bilaterally. Right brachial pressure: 1 31 mmHg Left brachial pressure: 1 33 mmHg Right ankle pressure: 100 mmHg Left ankle pressure: 1 32 mmHg Right LEYLA 0.8 Left LEYLA 1.0 There is diffuse aphthous chronic vascular disease. Plaquing and visual narrowing is present in the distal common femoral artery. And associated significant increase in velocity is not appreciated. Profunda artery appears grossly patent. Blunting of femoral artery waveforms is noted proximally suggesting that the process in the distal right common femoral artery is significant. There is an significant increase in velocities within the mid right superficial femoral artery up to 426 cm/s .There is dense atherosclerotic plaque within the distal popliteal artery with a focal elevation of 381 cm/s. Proximal peroneal artery is occluded by ultrasound. Blunted monophasic waveforms seen within the right anterior tibial artery and posterior tibial arteries. Visualized dorsalis pedis artery is patent. IMPRESSION: 1. Reduced ankle-brachial index on the right. Normal LEYLA on the left. 2. At least moderate but possibly high-grade stenosis of the distal right common femoral artery. Likely high-grade superficial femoral artery and popliteal artery stenosis. 3. Occlusion of the proximal peroneal artery. 4. Consider conventional angiography and intervention as clinically indicated Electronically signed by: Arpit Cueto MD (05/20/2020 12:28 PM) [id number]
== END | disposition home or self-care (01) ==
LOC: US 10:10
PROVIDERS: ATTEND Emergency Medicine Undersea and Hyperbaric Medicine
DX: S91.301A Unspecified open wound, right foot, initial encounter (principal); I73.9 Peripheral vascular disease, unspecified; I99.8 Other disorder of circulatory system; X58.XXXA Exposure to other specified factors, initial encounter; Y93.89 Activity, other specified; Y92.89 Other specified places as the place of occurrence of the external cause; Y99.8 Other external cause status
CPT/HCPCS: 93922; 93926